=== PATIENT | male | born 1965 | race American Indian/Alaskan Native ===

== ENCOUNTER 2017-05-10 11:36 | Outpatient (CLI) | payer OTHER ==
[2017-05-10] MEDS ORDERED: PROVENTIL IH ONE (11:59)
== END 2017-05-10 11:37 | disposition home or self-care (01) ==
LOC: PF 11:36
PROVIDERS: ATTEND Internal Medicine
DX: I11.0 Hypertensive heart disease with heart failure (principal); I50.9 Heart failure, unspecified; E11.9 Type 2 diabetes mellitus without complications; J44.9 Chronic obstructive pulmonary disease, unspecified; M10.9 Gout, unspecified; G47.30 Sleep apnea, unspecified; E66.9 Obesity, unspecified; M54.9 Dorsalgia, unspecified; I48.91 Unspecified atrial fibrillation; E78.5 Hyperlipidemia, unspecified; F17.200 Nicotine dependence, unspecified, uncomplicated
CPT/HCPCS: 94060; 94640; 94729

== ENCOUNTER 2017-08-07 07:13 | Inpatient (IN) | payer OTHER ==
[2017-08-07] MEDS ORDERED: ZOFRAN IV ONE (07:47)
[2017-08-07] MEDS ORDERED: CATAPRES PO ONE (07:47)
[2017-08-07] MEDS ORDERED: NITRO-BID 2% TP ONE (07:47)
[2017-08-07] MEDS ORDERED: SUBLIMAZE IV ONE (07:47)
--- NOTE | 2017-08-07 07:47 | Emergency Department Report ---
HPI - General Chief Complaint: Chest Pain Time Seen by Provider: 08/07/17 07:38 - HPI HPI: Room 1 The patient is a 51-year-old male presenting with a chief complaint of chest pain. Patient states his symptoms began last night with substernal chest pain described as a tightness/pressure. Patient is to shortness of breath but denies nausea/vomiting. Patient admits occasional diaphoresis with the chest pain. Patient states the chest pain has been intermittent. Location: [See above] Duration: [See above] Quality:/Pressure Severity:01/26 Modifying factors: [see above] Context: [see above] Mode of transportation: [not driving] ED Past Medical Hx - Past Medical History Hx Hypertension: Yes Hx Congestive Heart Failure: Yes Hx Diabetes: Yes Hx Asthma: Yes Hx COPD: Yes - Surgical History Past Surgical History?: No - Family History Family history: no significant - Social History Smoking Status: Current Every Day Smoker (1/2 pack per day) Substance Use Type: None (denies illicit drug use), Alcohol (occasional) - Medications Home Medications: Home Medications Medication Instructions Recorded Confirmed Last Taken Type ALBUTEROL Inhaler [ProAir HFA 2 puff IH QID PRN 03/15/16 01/13/17 01/12/17 History Inhaler] Enoxaparin [Lovenox] 100 mg SUB-Q Q12HR #10 syringe 03/16/16 01/13/17 01/12/17 Rx Warfarin [Coumadin] 5 mg PO QDAY #45 tablet 03/16/16 01/13/17 01/12/17 Rx Allopurinol [Zyloprim] 100 mg PO TID #90 tablet 01/14/17 Unknown Rx Aspirin [Aspirin BABY CHEW TAB] 81 mg PO QDAY #30 tab.chew 01/14/17 Unknown Rx Carvedilol [Coreg] 25 mg PO BID #60 tablet 01/14/17 Unknown Rx Duloxetine HCl [DULoxetine] 30 mg PO QDAY #30 capsule. 01/14/17 Unknown Rx Furosemide [Lasix TAB] 40 mg PO QDAY #30 tablet 01/14/17 Unknown Rx ISOSORBIDE MONOnitrate [Imdur ER] 30 mg PO QDAY #30 tablet 01/14/17 Unknown Rx Lisinopril [Zestril TAB] 40 mg PO QDAY #30 tablet 01/14/17 Unknown Rx NIFEdipine XL [Procardia Xl] 60 mg PO QDAY #30 tablet 01/14/17 Unknown Rx Simvastatin [Zocor TAB] 20 mg PO QHS #30 tablet 01/14/17 Unknown Rx Spironolactone [Aldactone] 50 mg PO QDAY #30 tablet 01/14/17 Unknown Rx Tiotropium [Spiriva] 18 mcg IH QDAY #30 cap 01/14/17 Unknown Rx glipiZIDE [Glucotrol] 5 mg PO BID #60 tablet 01/14/17 Unknown Rx metFORMIN [Glucophage] 500 mg PO BID #60 tablet 01/14/17 Unknown Rx ED Review of Systems ROS: Stated complaint: CHEST PAIN Other details as noted in HPI Comment: All other systems reviewed and negative Constitutional: diaphoresis Eyes: denies: eye pain, eye discharge, vision change ENT: denies: ear pain, throat pain Respiratory: shortness of breath Cardiovascular: chest pain Endocrine: no symptoms reported Gastrointestinal: denies: abdominal pain, nausea, diarrhea Genitourinary: denies: urgency, dysuria Musculoskeletal: denies: back pain, joint swelling, arthralgia Skin: denies: rash, lesions Neurological: denies: headache, weakness, paresthesias Psychiatric: denies: anxiety, depression Hematological/Lymphatic: denies: easy bleeding, easy bruising Physical Exam - Physical Exam Vital Signs: Vital Signs 08/07/17 07:37 Temperature 98.1 F Pulse Rate 85 Respiratory 18 Rate Blood Pressure 230/128 O2 Sat by Pulse 98 Oximetry Physical Exam: GENERAL: The patient is well-developed well-nourished male sitting on stretcher not appearing to be in acute distress. [] HEENT: Normocephalic. Atraumatic. Extraocular motions are intact. Patient has moist mucous membranes. NECK: Supple. Trachea midline CHEST/LUNGS: Clear to auscultation. There is no respiratory distress noted. HEART/CARDIOVASCULAR: Regular. There is no tachycardia. There is no gallop rub or murmur. ABDOMEN: Abdomen is soft, nontender. Patient has normal bowel sounds. There is no abdominal distention. SKIN: There is no rash. There is no edema. There is no diaphoresis. NEURO: The patient is awake, alert, and oriented. The patient is cooperative. The patient has normal speech MUSCULOSKELETAL: There is no evidence of acute injury. ED Course Vital Signs 08/07/17 07:37 Temperature 98.1 F Pulse Rate 85 Respiratory 18 Rate Blood Pressure 230/128 O2 Sat by Pulse 98 Oximetry ED Medical Decision Making - Lab Data Result diagrams: 08/07/17 07:50 08/07/17 07:50 Laboratory Tests 08/07/17 08/07/17 08/07/17 07:50 07:50 07:50 WBC 8.2 RBC 5.25 H Hgb 15.7 H Hct 45.2 MCV 86 MCH 30 MCHC 35 H RDW 13.0 L Plt Count 182 Lymph % (Auto) 26.9 Lee % (Auto) 7.0 Eos % (Auto) 2.0 Baso % (Auto) 1.2 Lymph # 2.2 Lee # 0.6 Eos # 0.2 Baso # 0.1 Seg Neutrophils % 62.9 Seg Neutrophils # 5.2 PT 19.8 H INR 1.60 H APTT 36.7 H Sodium 133 L Potassium 3.6 Chloride 91.5 L Carbon Dioxide 27 Anion Gap 18 BUN 9 Creatinine 0.8 Estimated GFR > 60 BUN/Creatinine Ratio 11 Glucose 478 H Calcium 8.9 Total Creatine Kinase 193 H CK-MB (CK-2) 4.9 H CK-MB (CK-2) Rel Index 2.5 Troponin T < 0.010 NT-Pro-B Natriuret Pep 88.06 - EKG Data -: EKG Interpreted by Me EKG shows normal: sinus rhythm Rate: normal - EKG Data When compared to previous EKG there are: no significant change Interpretation: unchanged when compared t (01/13/2017), nonspecific ST-T wave philipp - Radiology Data Radiology results: image reviewed (chest x-ray) interpreted by me: Chest x-ray-no focal infiltrates, no pneumothorax - Differential Diagnosis ACS, GERD, pericarditis Critical care attestation.: If time is entered above; I have spent that time in minutes in the direct care of this critically ill patient, excluding procedure time. ED Disposition Clinical Impression: Chest pain, Hypertensive urgency Disposition: DC-09 OP ADMIT IP TO THIS HOSP Is pt being admited?: Yes Does the pt Need Aspirin: Yes Condition: Fair Instructions: Chest Pain (ED) Time of Disposition: 08:38 (hospitalist paged)
[2017-08-07] MEDS ORDERED: ASPIRIN PO ONE (07:49)
[2017-08-07 08:18] LABS: Basophils % (Auto) 1.2 % (0.0-1.8); Hematocrit 45.2 % (35.5-45.6); Hemoglobin 15.7 gm/dl (11.8-15.2); Mean Corpuscular HGB Conc 35 % (32-34); Mean Corpuscular Hemoglobin 30 pg (28-32); Mean Corpuscular Volume 86 fl (84-94); Platelet Count 182 K/mm3 (140-440); Red Blood Count 5.25 M/mm3 (3.65-5.03); White Blood Count 8.2 K/mm3 (4.5-11.0)
[2017-08-07 08:24] LABS: Creatine Kinase MB 4.9 ng/mL (0.0-4.0)
[2017-08-07 08:25] LABS: Anion Gap 18 mmol/L; BUN/Creatinine Ratio 11; Blood Urea Nitrogen 9 mg/dL (9-20); Calcium 8.9 mg/dL (8.4-10.2); Carbon Dioxide 27 mmol/L (22-30); Chloride 91.5 mmol/L (98-107); Creatine Kinase 193 units/L (55-170); Glucose 478 mg/dL (75-100); INR 1.6 (0.87-1.13); Potassium 3.6 mmol/L (3.6-5.0); Sodium 133 mmol/L (137-145)
[2017-08-07 08:26] LABS: Partial Thromboplastin Time 36.7 Sec. (24.2-36.6)
[2017-08-07] MEDS ORDERED: NOVOLOG SUB-Q ONE (08:43)
--- NOTE | 2017-08-07 08:51 | XRay Report ---
FINAL REPORT EXAM: XR CHEST 1V AP HISTORY: chest pains TECHNIQUE: AP portable view(s) of the chest obtained. PRIORS: None. FINDINGS: No mediastinal shift. Cardiac silhouette is not enlarged. No pneumothorax, effusion, or focal pulmonary opacity identified. No acute skeletal findings. IMPRESSION: No acute pulmonary finding identified.
--- NOTE | 2017-08-07 09:00 | History and Physical Report ---
History of Present Illness Date of examination: 08/07/17 Chief complaint: cp History of present illness: This is a 51-year-old male with significant past medical history of coronary artery disease, atrial flutter, hypertension, hyperlipidemia and diabetes mellitus type 2, who presents with complaints of chest pain that began yesterday. Patient describes the pain as chest tightness/pressure that began last evening and nonradiating. Patient reports associated symptoms of shortness of breath and diaphoresis but denies nausea, vomiting. Patient states that he has been without his medications for the past 4 days because he ran out. Patient also complains of neuropathic type pain of the lower extremities. No weakness. No fever chills. No cough or cold-like symptoms. No headache or visual disturbances. Patient reports his last cardiac evaluation approximately 1-2 years ago at [facility]. Past History Past Medical History: CAD, diabetes, hypertension, hyperlipidemia, other (a- flutter) Past Surgical History: No surgical history Social history: smoking (Current Every Day Smoker (1/2 pack per day)) Family history: no significant family history Medications and Allergies Allergies Allergy/AdvReac Type Severity Reaction Status Date / Time No Known Allergies Allergy Verified 03/13/15 12:17 Home Medications Medication Instructions Recorded Confirmed Last Taken Type ALBUTEROL Inhaler [ProAir HFA 2 puff IH QID PRN 03/15/16 01/13/17 01/12/17 History Inhaler] Enoxaparin [Lovenox] 100 mg SUB-Q Q12HR #10 syringe 03/16/16 01/13/17 01/12/17 Rx Warfarin [Coumadin] 5 mg PO QDAY #45 tablet 03/16/16 01/13/17 01/12/17 Rx Allopurinol [Zyloprim] 100 mg PO TID #90 tablet 01/14/17 Unknown Rx Aspirin [Aspirin BABY CHEW TAB] 81 mg PO QDAY #30 tab.chew 01/14/17 Unknown Rx Carvedilol [Coreg] 25 mg PO BID #60 tablet 01/14/17 Unknown Rx Duloxetine HCl [DULoxetine] 30 mg PO QDAY #30 capsule. 01/14/17 Unknown Rx Furosemide [Lasix TAB] 40 mg PO QDAY #30 tablet 01/14/17 Unknown Rx ISOSORBIDE MONOnitrate [Imdur ER] 30 mg PO QDAY #30 tablet 01/14/17 Unknown Rx Lisinopril [Zestril TAB] 40 mg PO QDAY #30 tablet 01/14/17 Unknown Rx NIFEdipine XL [Procardia Xl] 60 mg PO QDAY #30 tablet 01/14/17 Unknown Rx Simvastatin [Zocor TAB] 20 mg PO QHS #30 tablet 01/14/17 Unknown Rx Spironolactone [Aldactone] 50 mg PO QDAY #30 tablet 01/14/17 Unknown Rx Tiotropium [Spiriva] 18 mcg IH QDAY #30 cap 01/14/17 Unknown Rx glipiZIDE [Glucotrol] 5 mg PO BID #60 tablet 01/14/17 Unknown Rx metFORMIN [Glucophage] 500 mg PO BID #60 tablet 01/14/17 Unknown Rx Review of Systems All systems: negative Exam - Constitutional Vitals: Temp Pulse Resp BP Pulse Ox 98.1 F 86 14 159/109 98 08/07/17 07:37 08/07/17 08:08 08/07/17 08:00 08/07/17 08:08 08/07/17 08:15 General appearance: Present: no acute distress, well-nourished - EENT Eyes: Present: PERRL ENT: hearing intact, clear oral mucosa - Neck Neck: Present: supple, normal ROM - Respiratory Respiratory effort: normal Respiratory: bilateral: CTA - Cardiovascular Heart Sounds: Present: S1 & S2. Absent: rub, click - Extremities Extremities: pulses symmetrical, No edema Peripheral Pulses: within normal limits - Abdominal General gastrointestinal: Present: soft, non-tender, non-distended, normal bowel sounds Male genitourinary: Present: normal - Integumentary Integumentary: Present: clear, warm, dry - Musculoskeletal Musculoskeletal: gait normal, strength equal bilaterally - Psychiatric Psychiatric: appropriate mood/affect, intact judgment & insight - Neurologic Neurologic: CNII-XII intact, moves all extremities Results - Labs CBC & Chem 7: 08/07/17 07:50 08/07/17 07:50 Labs: Laboratory Last Values WBC 8.2 K/mm3 (4.5-11.0) 08/07/17 07:50 RBC 5.25 M/mm3 (3.65-5.03) H 08/07/17 07:50 Hgb 15.7 gm/dl (11.8-15.2) H 08/07/17 07:50 Hct 45.2 % (35.5-45.6) 08/07/17 07:50 MCV 86 fl (84-94) 08/07/17 07:50 MCH 30 pg (28-32) 08/07/17 07:50 MCHC 35 % (32-34) H 08/07/17 07:50 RDW 13.0 % (13.2-15.2) L 08/07/17 07:50 Plt Count 182 K/mm3 (140-440) 08/07/17 07:50 Lymph % (Auto) 26.9 % (13.4-35.0) 08/07/17 07:50 [place] % (Auto) 7.0 % (0.0-7.3) 08/07/17 07:50 Eos % (Auto) 2.0 % (0.0-4.3) 08/07/17 07:50 Baso % (Auto) 1.2 % (0.0-1.8) 08/07/17 07:50 Lymph # 2.2 K/mm3 (1.2-5.4) 08/07/17 07:50 [place] # 0.6 K/mm3 (0.0-0.8) 08/07/17 07:50 Eos # 0.2 K/mm3 (0.0-0.4) 08/07/17 07:50 Baso # 0.1 K/mm3 (0.0-0.1) 08/07/17 07:50 Seg Neutrophils % 62.9 % (40.0-70.0) 08/07/17 07:50 Seg Neutrophils # 5.2 K/mm3 (1.8-7.7) 08/07/17 07:50 PT 19.8 Sec. (12.2-14.9) H 08/07/17 07:50 INR 1.60 (0.87-1.13) H 08/07/17 07:50 APTT 36.7 Sec. (24.2-36.6) H 08/07/17 07:50 Sodium 133 mmol/L (137-145) L 08/07/17 07:50 Potassium 3.6 mmol/L (3.6-5.0) 08/07/17 07:50 Chloride 91.5 mmol/L (98-107) L 08/07/17 07:50 Carbon Dioxide 27 mmol/L (22-30) 08/07/17 07:50 Anion Gap 18 mmol/L 08/07/17 07:50 BUN 9 mg/dL (9-20) 08/07/17 07:50 Creatinine 0.8 mg/dL (0.8-1.5) 08/07/17 07:50 Estimated GFR > 60 ml/min 08/07/17 07:50 BUN/Creatinine Ratio 11 % 08/07/17 07:50 Glucose 478 mg/dL (75-100) H 08/07/17 07:50 POC Glucose 373 (70-105) H 08/07/17 08:40 Calcium 8.9 mg/dL (8.4-10.2) 08/07/17 07:50 Total Creatine Kinase 193 units/L (55-170) H 08/07/17 07:50 CK-MB (CK-2) 4.9 ng/mL (0.0-4.0) H 08/07/17 07:50 CK-MB (CK-2) Rel Index 2.5 (0-4) 08/07/17 07:50 Troponin T < 0.010 ng/mL (0.00-0.029) 08/07/17 07:50 NT-Pro-B Natriuret Pep 88.06 pg/mL (0-900) 08/07/17 07:50 Assessment and Plan Assessment and plan: Chest pain. Patient does have a history of Coronary artery disease. Cardiac catheterization in February 2015 completed at our facility revealed significant coronary artery disease with disease involving the distal vessels. The vessels are small in size and was not amenable to intervention or revascularization. Left ventricular size and systolic function with an EF of 55-60%. Cardiology consultation pending. Chronic diastolic heart failure. Compensated. Resume home medications. Diabetes mellitus type 2. Uncontrolled. We will resume his regimen. Accu- Cheks and sliding scale regular insulin. COPD. Stable. Continue medications. Diabetic neuropathy. Resume Neurontin. Tobacco abuse. Patient will be counseled on tobacco cessation. Medical noncompliance. Patient will be counseled. DVT prophylaxis. Patient currently on Coumadin. However, INR is subtherapeutic. Lovenox daily.
[2017-08-07] MEDS ORDERED: SODIUM CHLORIDE FLUSH SYRINGE 10 ML IV PRN (09:06)
--- NOTE | 2017-08-07 10:07 | Consultation ---
History of Present Illness Consult date: 08/07/17 Consult reason: chest pain History of present illness: This is a 51-year-old male with significant past medical history of coronary artery disease, atrial flutter, hypertension, hyperlipidemia and diabetes mellitus type 2, who presented with complaints of chest rodney, beginning yesteray. pain is a chest tightness/pressure, nonradiating, and substernal. Patient reports associated symptoms of shortness of breath and diaphoresis. Pt denies orthopnea, pnd, palpitations, dizziness or syncope. Patient states that he has been without his medications for the past 4 days because he ran out. Past History Past Medical History: CAD, diabetes, hypertension, hyperlipidemia, other (a- flutter) Past Surgical History: No surgical history Social history: smoking (Current Every Day Smoker (1/2 pack per day)) Family history: no significant family history Medications and Allergies Allergies Allergy/AdvReac Type Severity Reaction Status Date / Time No Known Allergies Allergy Verified 03/13/15 12:17 Home Medications Medication Instructions Recorded Confirmed Last Taken Type ALBUTEROL Inhaler [ProAir HFA 2 puff IH QID PRN 03/15/16 01/13/17 01/12/17 History Inhaler] Enoxaparin [Lovenox] 100 mg SUB-Q Q12HR #10 syringe 03/16/16 01/13/17 01/12/17 Rx Warfarin [Coumadin] 5 mg PO QDAY #45 tablet 03/16/16 01/13/17 01/12/17 Rx Allopurinol [Zyloprim] 100 mg PO TID #90 tablet 01/14/17 Unknown Rx Aspirin [Aspirin BABY CHEW TAB] 81 mg PO QDAY #30 tab.chew 01/14/17 Unknown Rx Carvedilol [Coreg] 25 mg PO BID #60 tablet 01/14/17 Unknown Rx Duloxetine HCl [DULoxetine] 30 mg PO QDAY #30 capsule. 01/14/17 Unknown Rx Furosemide [Lasix TAB] 40 mg PO QDAY #30 tablet 01/14/17 Unknown Rx ISOSORBIDE MONOnitrate [Imdur ER] 30 mg PO QDAY #30 tablet 01/14/17 Unknown Rx Lisinopril [Zestril TAB] 40 mg PO QDAY #30 tablet 01/14/17 Unknown Rx NIFEdipine XL [Procardia Xl] 60 mg PO QDAY #30 tablet 01/14/17 Unknown Rx Simvastatin [Zocor TAB] 20 mg PO QHS #30 tablet 01/14/17 Unknown Rx Spironolactone [Aldactone] 50 mg PO QDAY #30 tablet 01/14/17 Unknown Rx Tiotropium [Spiriva] 18 mcg IH QDAY #30 cap 01/14/17 Unknown Rx glipiZIDE [Glucotrol] 5 mg PO BID #60 tablet 01/14/17 Unknown Rx metFORMIN [Glucophage] 500 mg PO BID #60 tablet 01/14/17 Unknown Rx Active Meds: Active Medications Sodium Chloride (Sodium Chloride Flush Syringe 10 Ml) 10 ml IV PRN PRN PRN Reason: LINE FLUSH Physical Examination Vital Signs Temp Pulse Resp BP Pulse Ox 98.1 F 85 18 230/128 98 08/07/17 07:37 08/07/17 07:37 08/07/17 07:37 08/07/17 07:37 08/07/17 07:37 General appearance: no acute distress HEENT: Positive: PERRL, EOMI Cardiac: Positive: Reg Rate and Rhythm, S1/S2 Lungs: Positive: clear to auscultation, Normal Breath Sounds Abdomen: Positive: Soft, Active Bowel Sounds Extremities: Present: normal Results 08/07/17 07:50 08/07/17 07:50 Cardiac Enzymes 08/07/17 Range/Units 07:50 CK-MB (CK-2) 4.9 H (0.0-4.0) ng/mL Coagulation 08/07/17 Range/Units 07:50 PT 19.8 H (12.2-14.9) Sec. INR 1.60 H (0.87-1.13) APTT 36.7 H (24.2-36.6) Sec. CBC 08/07/17 Range/Units 07:50 WBC 8.2 (4.5-11.0) K/mm3 RBC 5.25 H (3.65-5.03) M/mm3 Hgb 15.7 H (11.8-15.2) gm/dl Hct 45.2 (35.5-45.6) % Plt Count 182 (140-440) K/mm3 Lymph # 2.2 (1.2-5.4) K/mm3 [place] # 0.6 (0.0-0.8) K/mm3 Eos # 0.2 (0.0-0.4) K/mm3 Baso # 0.1 (0.0-0.1) K/mm3 Comprehensive Metabolic Panel 08/07/17 Range/Units 07:50 Sodium 133 L (137-145) mmol/L Potassium 3.6 (3.6-5.0) mmol/L Chloride 91.5 L (98-107) mmol/L Carbon Dioxide 27 (22-30) mmol/L BUN 9 (9-20) mg/dL Creatinine 0.8 (0.8-1.5) mg/dL Glucose 478 H (75-100) mg/dL Calcium 8.9 (8.4-10.2) mg/dL Assessment and Plan Chest pain - Patient does have a history of Coronary artery disease. Cardiac catheterization in February 2015 showed significant coronary artery disease with disease involving the distal vessels. The vessels are small in size and was not amenable to intervention or revascularization. Left ventricular size and systolic function with an EF of 55-60%. As coronary anatomy is known, there is no further purpose in stress test. Plan for maximal medical therapy. Should patient develop further symptoms on maximal medical therapy, then consider for LHC. Chronic diastolic heart failure - currently not volume overloaded. Recommend intensive antihypertensive medications. Diabetes mellitus type 2 - management per primary COPD - management per primary Diabetic neuropathy - management per primary Tobacco abuse - cessation recommended Medical noncompliance. Patient will be counseled.
[2017-08-07 10:15] LABS: Basophils % (Auto) 0.5 % (0.0-1.8); Eosinophils % (Auto) 1.4 % (0.0-4.3); Hematocrit 41.7 % (35.5-45.6); Hemoglobin 14.4 gm/dl (11.8-15.2); Mean Corpuscular HGB Conc 35 % (32-34); Mean Corpuscular Hemoglobin 30 pg (28-32); Mean Corpuscular Volume 87 fl (84-94); Platelet Count 179 K/mm3 (140-440); Red Blood Count 4.81 M/mm3 (3.65-5.03); Red Cell Distribution Width 13.4 % (13.2-15.2); White Blood Count 8.4 K/mm3 (4.5-11.0)
[2017-08-07 10:31] LABS: Anion Gap 14 mmol/L; BUN/Creatinine Ratio 11; Blood Urea Nitrogen 9 mg/dL (9-20); Calcium 8.7 mg/dL (8.4-10.2); Carbon Dioxide 29 mmol/L (22-30); Chloride 95.4 mmol/L (98-107); Glucose 408 mg/dL (75-100); Potassium 3.8 mmol/L (3.6-5.0); Sodium 135 mmol/L (137-145)
[2017-08-07] MEDS ORDERED: LOPRESSOR PO SCH (22:00)
[2017-08-07] MEDS: NOVOLOG SUB-Q SCH (22:01)
[2017-08-07] MEDS: RANEXA ER PO SCH (22:02)
[2017-08-07] MEDS: COREG PO SCH (22:02)
[2017-08-08] MEDS ORDERED: LEXISCAN IV ONE (08:19)
[2017-08-08] MEDS ORDERED: IMDUR PO SCH (10:00)
[2017-08-08] MEDS ORDERED: ZESTRIL PO SCH (10:00)
[2017-08-08] MEDS ORDERED: ALDACTONE PO SCH (10:00)
[2017-08-08] MEDS ORDERED: BABY ASPIRIN PO SCH (10:00)
[2017-08-08] MEDS ORDERED: PROCARDIA XL PO SCH (10:00)
[2017-08-08] MEDS: COREG PO SCH (13:37)
[2017-08-08] MEDS: RANEXA ER PO SCH (13:37)
[2017-08-08] MEDS: NOVOLOG SUB-Q SCH ×3 (13:38→17:56)
--- NOTE | 2017-08-08 13:51 | Progress Note ---
Assessment and Plan - Patient Problems (1) Chest pain Current Visit: Yes Status: Acute Plan to address problem: Patient looks and feels better, no further chest pain or shortness of breath. He completed a Persantine thallium stress test today, results are pending. Patient was admitted with atypical chest pain. EKG on presentation sinus rhythm , left ventricular hypertrophy and nonspecific ST and T-wave changes. Cardiac enzymes were unremarkable. He has a history of paroxysmal atrial flutter and small vessel coronary artery disease. A cardiac catheterization 2 years ago demonstrated diffuse atherosclerosis of the small distal vessels, recommended for medical therapy. Left ventricular ejection fraction well preserved at 55-60%. In addition to his coronary disease, he has paroxysmal atrial flutter, on warfarin therapy. The INR on presentation was subtherapeutic at 1.6. (2) Atrial fibrillation Current Visit: No Status: Acute Plan to address problem: Patient looks and feels better, no further chest pain or shortness of breath. He completed a Persantine thallium stress test today, results are pending. Patient was admitted with atypical chest pain. EKG on presentation sinus rhythm , left ventricular hypertrophy and nonspecific ST and T-wave changes. Cardiac enzymes were unremarkable. He has a history of paroxysmal atrial flutter and small vessel coronary artery disease. A cardiac catheterization 2 years ago demonstrated diffuse atherosclerosis of the small distal vessels, recommended for medical therapy. Left ventricular ejection fraction well preserved at 55-60%. In addition to his coronary disease, he has paroxysmal atrial flutter, on warfarin therapy. The INR on presentation was subtherapeutic at 1.6. Subjective Date of service: 08/08/17 Interval history: Patient looks and feels better, no further chest pain or shortness of breath. He completed a Persantine thallium stress test today, results are pending. Patient was admitted with atypical chest pain. EKG on presentation sinus rhythm , left ventricular hypertrophy and nonspecific ST and T-wave changes. Cardiac enzymes were unremarkable. He has a history of paroxysmal atrial flutter and small vessel coronary artery disease. A cardiac catheterization 2 years ago demonstrated diffuse atherosclerosis of the small distal vessels, recommended for medical therapy. Left ventricular ejection fraction well preserved at 55-60%. In addition to his coronary disease, he has paroxysmal atrial flutter, on warfarin therapy. The INR on presentation was subtherapeutic at 1.6. Objective Vital Signs Temp Pulse Resp BP BP BP Pulse Ox 08/08/17 13:45 79 188/114 200/103 08/08/17 13:38 79 188/114 08/08/17 13:37 79 188/114 08/08/17 03:53 97.9 F 77 20 176/92 100 08/08/17 00:42 75 75 L 08/08/17 00:37 98.4 F 74 24 143/80 97 08/07/17 20:40 77 08/07/17 20:26 97.6 F 84 20 164/93 93 08/07/17 18:19 18 08/07/17 16:45 69 18 133/74 100 08/07/17 16:38 97.3 F L 76 18 129/77 97 08/07/17 16:00 65 16 137/76 100 08/07/17 15:45 69 18 133/74 100 08/07/17 15:31 68 17 133/77 96 08/07/17 15:15 70 15 116/80 94 08/07/17 15:00 70 18 127/82 93 08/07/17 14:45 72 19 124/76 98 08/07/17 14:30 71 17 131/76 99 08/07/17 14:15 69 17 126/71 99 08/07/17 14:01 70 17 114/74 100 - Physical Examination General: No Apparent Distress HEENT: Positive: PERRL, EOMI Neck: Positive: neck supple Cardiac: Positive: Reg Rate and Rhythm Lungs: Positive: Decreased Breath Sounds Neuro: Positive: Grossly Intact Abdomen: Positive: Soft, Active Bowel Sounds Skin: Positive: Clear Extremities: Absent: edema
[2017-08-08 16:29] VITALS: BP 147/91
--- NOTE | 2017-08-08 17:58 | Progress Note ---
Assessment and Plan - Patient Problems (1) Chest pain Current Visit: Yes Status: Acute Plan to address problem: Chest pain patient has a history of coronary disease in the distal vessels not amenable to therapy. Maximize medical management with long-acting nitroglycerin and aggressive control of blood pressure. (2) Hypertensive urgency Current Visit: Yes Status: Acute Plan to address problem: Patient blood pressure still suboptimally controlled. Last blood pressure 188/ 115. Prior to that had a systolic of 200. We'll increase lisinopril to 40 mg increase Coreg to 25 mg twice a day. (3) Atrial fibrillation Current Visit: No Status: Acute Plan to address problem: At present we'll continue current anticoagulant. (4) CAD (coronary artery disease) Current Visit: No Status: Acute Plan to address problem: Smoking cessation. His vessels as mentioned before not amendable to therapy. 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 Chest pain free now results stress test still pending. Patient had a prior history of coronary disease and distal vessels not amenable to therapy. Suggesting maximum medical therapy. Was stress tested negative for discharge. Hospitalist Physical - Constitutional Vitals: Temp Pulse Resp BP Pulse Ox 98.5 F 78 18 147/91 98 08/08/17 16:28 08/08/17 16:28 08/08/17 16:28 08/08/17 16:28 08/08/17 16:28 General appearance: Present: no acute distress - EENT Eyes: Present: PERRL, EOM intact ENT: hearing intact, clear oral mucosa, dentition normal - Neck Neck: Present: supple, normal ROM - Respiratory Respiratory effort: normal Respiratory: bilateral: CTA - Cardiovascular Rhythm: irregularly irregular - Extremities Extremities: no ischemia, pulses intact, pulses symmetrical, No edema, normal temperature, normal color, Full ROM Peripheral Pulses: within normal limits - Abdominal General gastrointestinal: soft, non-tender, non-distended - Psychiatric Psychiatric: appropriate mood/affect, cooperative - Neurologic Neurologic: CNII-XII intact Results - Labs CBC & Chem 7: 08/07/17 09:59 08/07/17 09:59 Labs: Laboratory Last Values WBC 8.4 K/mm3 (4.5-11.0) 08/07/17 09:59 RBC 4.81 M/mm3 (3.65-5.03) 08/07/17 09:59 Hgb 14.4 gm/dl (11.8-15.2) 08/07/17 09:59 Hct 41.7 % (35.5-45.6) 08/07/17 09:59 MCV 87 fl (84-94) 08/07/17 09:59 MCH 30 pg (28-32) 08/07/17 09:59 MCHC 35 % (32-34) H 08/07/17 09:59 RDW 13.4 % (13.2-15.2) 08/07/17 09:59 Plt Count 179 K/mm3 (140-440) 08/07/17 09:59 Lymph % (Auto) 31.3 % (13.4-35.0) 08/07/17 09:59 Lewis % (Auto) 7.2 % (0.0-7.3) 08/07/17 09:59 Eos % (Auto) 1.4 % (0.0-4.3) 08/07/17 09:59 Baso % (Auto) 0.5 % (0.0-1.8) 08/07/17 09:59 Lymph # 2.6 K/mm3 (1.2-5.4) 08/07/17 09:59 Lewis # 0.6 K/mm3 (0.0-0.8) 08/07/17 09:59 Eos # 0.1 K/mm3 (0.0-0.4) 08/07/17 09:59 Baso # 0.0 K/mm3 (0.0-0.1) 08/07/17 09:59 Seg Neutrophils % 59.6 % (40.0-70.0) 08/07/17 09:59 Seg Neutrophils # 5.0 K/mm3 (1.8-7.7) 08/07/17 09:59 PT 19.8 Sec. (12.2-14.9) H 08/07/17 07:50 INR 1.60 (0.87-1.13) H 08/07/17 07:50 APTT 36.7 Sec. (24.2-36.6) H 08/07/17 07:50 Sodium 135 mmol/L (137-145) L 08/07/17 09:59 Potassium 3.8 mmol/L (3.6-5.0) 08/07/17 09:59 Chloride 95.4 mmol/L (98-107) L 08/07/17 09:59 Carbon Dioxide 29 mmol/L (22-30) 08/07/17 09:59 Anion Gap 14 mmol/L 08/07/17 09:59 BUN 9 mg/dL (9-20) 08/07/17 09:59 Creatinine 0.8 mg/dL (0.8-1.5) 08/07/17 09:59 Estimated GFR > 60 ml/min 08/07/17 09:59 BUN/Creatinine Ratio 11 % 08/07/17 09:59 Glucose 408 mg/dL (75-100) H 08/07/17 09:59 POC Glucose 371 (70-105) H 08/08/17 16:08 Calcium 8.7 mg/dL (8.4-10.2) 08/07/17 09:59 Total Creatine Kinase 193 units/L (55-170) H 08/07/17 07:50 CK-MB (CK-2) 4.9 ng/mL (0.0-4.0) H 08/07/17 07:50 CK-MB (CK-2) Rel Index 2.5 (0-4) 08/07/17 07:50 Troponin T < 0.010 ng/mL (0.00-0.029) 08/07/17 16:44 NT-Pro-B Natriuret Pep 88.06 pg/mL (0-900) 08/07/17 07:50 - Imaging and Cardiology EKG: image reviewed Imaging and Cardiology: Stress test results.
--- NOTE | 2017-08-08 18:00 | Event Note ---
Date: 08/08/17 Just received a from the nurse stating patient wants to keep going on in smoke. Patient states he will leave AGAINST MEDICAL ADVICE. He knows how high his blood pressure is in the consequences of this. Patient states will outside and smoke is grown.
[2017-08-08] MEDS ORDERED: COREG PO SCH (22:00)
--- NOTE | 2017-08-09 01:08 | Treadmill Report ---
THALLIUM STRESS TEST LEFT VENTRICLE: Left ventricular chamber size is within normal. Perfusion study demonstrates mild diaphragmatic attenuation artifact, otherwise homogeneous uptake of the tracer in all segments, no significant perfusion defects identified. Gated analysis suggests mild left ventricular systolic dysfunction with ejection fraction calculated at 45%. CONCLUSION: No demonstrable ischemia on thallium perfusion imaging. Recommend clinical correlation and echocardiographic reassessment of the left ventricular systolic function. [facility]# [id number] CA/NTS
[2017-08-09] MEDS ORDERED: ZESTRIL PO SCH (10:00)
== END 2017-08-08 18:06 | disposition left against medical advice (07) | DRG 313 ==
LOC: ED 07:13 → 4A 08:40
PROVIDERS: ADMIT Internal Medicine; ATTEND Internal Medicine
DX: R07.89 Other chest pain (principal); I50.32 Chronic diastolic (congestive) heart failure; I11.0 Hypertensive heart disease with heart failure; J44.9 Chronic obstructive pulmonary disease, unspecified; I48.91 Unspecified atrial fibrillation; F17.200 Nicotine dependence, unspecified, uncomplicated; I16.0 Hypertensive urgency; I25.10 Atherosclerotic heart disease of native coronary artery without angina pectoris; E11.40 Type 2 diabetes mellitus with diabetic neuropathy, unspecified; Z91.14 Patient's other noncompliance with medication regimen; Z71.6 Tobacco abuse counseling; Z79.899 Other long term (current) drug therapy; Z79.82 Long term (current) use of aspirin
CPT/HCPCS: 36415; 71010; 78452; 80048; 82550; 82553; 82962; 83880; 84484; 85025; 85610; 85730; 93005; 93010; 93017; 93306; 96374; 96375; 99406; A9270-GY; A9502; J1815; J2405; J2785; J3010

== ENCOUNTER 2017-12-04 13:00 | Emergency (ER) | payer SELFPAY ==
[2017-12-04] MEDS ORDERED: ASPIRIN PO ONE (13:21)
[2017-12-04 13:39] LABS: Basophils # (Auto) 0.1 K/mm3 (0.0-0.1); Basophils % (Auto) 0.6 % (0.0-1.8); Eosinophils # (Auto) 0.1 K/mm3 (0.0-0.4); Eosinophils % (Auto) 1.3 % (0.0-4.3); Hematocrit 46.5 % (35.5-45.6); Hemoglobin 16.1 gm/dl (11.8-15.2); Lymphocytes # (Auto) 2.4 K/mm3 (1.2-5.4); Mean Corpuscular HGB Conc 35 % (32-34); Mean Corpuscular Hemoglobin 30 pg (28-32); Mean Corpuscular Volume 87 fl (84-94); Monocytes # (Auto) 0.7 K/mm3 (0.0-0.8); Monocytes % (Auto) 7.6 % (0.0-7.3); Platelet Count 206 K/mm3 (140-440); Red Blood Count 5.33 M/mm3 (3.65-5.03)
[2017-12-04 13:53] LABS: BUN/Creatinine Ratio 15; Blood Urea Nitrogen 12 mg/dL (9-20); Calcium 8.9 mg/dL (8.4-10.2); Hemolysis Index 7
[2017-12-04] MEDS ORDERED: CATAPRES ONE (16:58)
[2017-12-04] MEDS ORDERED: CATAPRES PO ONE (17:00)
[2017-12-04 19:12] VITALS: BP 200/121
== END 2017-12-04 19:09 | disposition left against medical advice (07) ==
LOC: ED 13:00
DX: R07.9 Chest pain, unspecified (principal); I50.9 Heart failure, unspecified; Z53.21 Procedure and treatment not carried out due to patient leaving prior to being seen by health care provider
CPT/HCPCS: 36415; 80048; 83880; 84484; 85025; 93005; 93010

== ENCOUNTER 2018-04-17 08:09 | Outpatient (CLI) | payer MEDICAID, MEDICARE ==
[2018-04-17] MEDS ORDERED: XYLOCAINE TOPICAL 4% TP ONE ×2 (08:42→10:06)
== END 2018-04-17 08:10 | disposition home or self-care (01) ==
LOC: WOUND 08:09
PROVIDERS: ATTEND Surgery
DX: E11.622 Type 2 diabetes mellitus with other skin ulcer (principal); L97.822 Non-pressure chronic ulcer of other part of left lower leg with fat layer exposed; L97.812 Non-pressure chronic ulcer of other part of right lower leg with fat layer exposed; I87.2 Venous insufficiency (chronic) (peripheral); E78.00 Pure hypercholesterolemia, unspecified; I11.0 Hypertensive heart disease with heart failure; I50.9 Heart failure, unspecified; M10.9 Gout, unspecified; G47.30 Sleep apnea, unspecified; F17.200 Nicotine dependence, unspecified, uncomplicated
CPT/HCPCS: 11042; G0463

== ENCOUNTER 2018-06-22 09:17 | Inpatient (IN) | payer MEDICAID, MEDICARE, OTHER ==
[2018-06-22 09:56] LABS: Basophils # (Auto) 0.1 K/mm3 (0.0-0.1); Basophils % (Auto) 1.1 % (0.0-1.8); Eosinophils # (Auto) 0.1 K/mm3 (0.0-0.4); Eosinophils % (Auto) 1.4 % (0.0-4.3); Hematocrit 45.3 % (35.5-45.6); Hemoglobin 15.5 gm/dl (11.8-15.2); Lymphocytes # (Auto) 2.5 K/mm3 (1.2-5.4); Lymphocytes % (Auto) 24.7 % (13.4-35.0); Mean Corpuscular HGB Conc 34 % (32-34); Mean Corpuscular Hemoglobin 31 pg (28-32); Mean Corpuscular Volume 92 fl (84-94); Monocytes # (Auto) 0.7 K/mm3 (0.0-0.8); Monocytes % (Auto) 6.9 % (0.0-7.3); Platelet Count 202 K/mm3 (140-440); Red Blood Count 4.95 M/mm3 (3.65-5.03); Red Cell Distribution Width 13.8 % (13.2-15.2)
[2018-06-22 10:06] LABS: INR 0.97 (0.87-1.13)
[2018-06-22 10:07] LABS: Partial Thromboplastin Time 28.8 Sec. (24.2-36.6)
[2018-06-22 10:12] LABS: BUN/Creatinine Ratio 19; Blood Urea Nitrogen 13 mg/dL (9-20); Calcium 9.6 mg/dL (8.4-10.2); Hemolysis Index 54
[2018-06-22 10:35] LABS: Chol/HDL Ratio 4.16 %; HDL Cholesterol 50 mg/dL (40-59); LDL Cholesterol,Direct 150 mg/dL (50-130)
[2018-06-22] MEDS ORDERED: BABY ASPIRIN PO ONE (10:38)
[2018-06-22] MEDS ORDERED: LOPRESSOR IV ONE (10:38)
--- NOTE | 2018-06-22 10:41 | Emergency Department Report ---
ED Chest Pain HPI - General Chief Complaint: Chest Pain Stated Complaint: CHEST PAIN Time Seen by Provider: 06/22/18 10:12 Source: patient Mode of arrival: Ambulatory Limitations: No Limitations - History of Present Illness Initial Comments: 52-year-old male presents to the emergency department with complaint of midsternal to right sided chest pain, nausea, and vomiting has been going on for the past 3 days. He says that he gets a sharp stabbing pain to the chest about every 1-2 minutes. He denies any shortness of breath, fever , back pain, headache. Patient has a past medical history of asthma, CHF, COPD , diabetes, hypertension, sleep apnea, hyperlipidemia and coronary artery disease with previous UT. He is a tobacco smoker. He also presents with very elevated blood pressure and says that he has been out of his blood pressure medications for about 2 or 3 days. His fan blade aligner is Dr. Vu but says that he does not have any primary care physician any longer secondary to his insurance. No recent travel or sick contacts at home. He tried some over-the- counter medication for his discomfort without much relief. - Related Data Home Medications Medication Instructions Recorded Confirmed Last Taken Allopurinol [Zyloprim] 300 mg PO DAILY 06/22/18 06/22/18 Unknown Furosemide [Lasix TAB] 40 mg PO DAILY 06/22/18 06/22/18 Unknown Gabapentin [Neurontin] 300 mg PO TID 06/22/18 06/22/18 Unknown Metformin HCl [Fortamet ER] 1,000 mg PO BID 06/22/18 06/22/18 Unknown Potassium Chloride [Klor-Con 8] 8 meq PO DAILY 06/22/18 06/22/18 Unknown Simethicone [Bicarsim] 80 mg PO DAILY 06/22/18 06/22/18 Unknown Sulfamethoxazole/Trimethoprim 1 each PO BID 06/22/18 06/22/18 Unknown [Sulfamethoxazole-Tmp Ss Tablet] cephALEXin [Keflex] 500 mg PO BID 06/22/18 06/22/18 Unknown glipiZIDE [Glipizide] 10 mg PO BID 06/22/18 06/22/18 Unknown Previous Rx's Medication Instructions Recorded Last Taken Type Carvedilol [Coreg] 25 mg PO BID #60 tablet 01/14/17 Unknown Rx Furosemide [Lasix TAB] 40 mg PO QDAY #30 tablet 01/14/17 1 Day Ago Rx ~08/06/17 Simvastatin [Zocor TAB] 20 mg PO QHS #30 tablet 01/14/17 1 Day Ago Rx ~08/06/17 Allergies Allergy/AdvReac Type Severity Reaction Status Date / Time No Known Allergies Allergy Verified 03/13/15 12:17 Heart Score - HEART Score History: Moderately suspicious EKG: Non-specific Age: 45-65 Risk factors: > 3 risk factors or hx of atherosclerotic disease Troponin: < normal limit HEART Score: 5 - Critical Actions Critical Actions: 4-6 pts:12-16.6% risk of adverse cardiac event. Should be admitted ED Review of Systems ROS: Stated complaint: CHEST PAIN Other details as noted in HPI Comment: All other systems reviewed and negative Constitutional: denies: chills, fever Eyes: denies: eye pain, eye discharge, vision change ENT: denies: ear pain, throat pain Respiratory: denies: cough, shortness of breath, wheezing Cardiovascular: chest pain. denies: palpitations Gastrointestinal: nausea, vomiting Genitourinary: denies: urgency, dysuria Musculoskeletal: denies: back pain, joint swelling, arthralgia Skin: denies: rash, lesions Neurological: denies: headache, weakness ED Past Medical Hx - Past Medical History Previous Medical History?: Yes Hx Hypertension: Yes Hx Congestive Heart Failure: Yes Hx Diabetes: Yes Hx Asthma: Yes Hx COPD: Yes Additional medical history: sleep apnea,gout,elevated cholesterol - Surgical History Past Surgical History?: Yes Additional Surgical History: Clip to RLE vein - Social History Smoking Status: Current Every Day Smoker Substance Use Type: None - Medications Home Medications: Home Medications Medication Instructions Recorded Confirmed Last Taken Type Carvedilol [Coreg] 25 mg PO BID #60 tablet 01/14/17 06/22/18 Unknown Rx Furosemide [Lasix TAB] 40 mg PO QDAY #30 tablet 01/14/17 06/22/18 1 Day Ago Rx ~08/06/17 Simvastatin [Zocor TAB] 20 mg PO QHS #30 tablet 01/14/17 06/22/18 1 Day Ago Rx ~08/06/17 Allopurinol [Zyloprim] 300 mg PO DAILY 06/22/18 06/22/18 Unknown History Furosemide [Lasix TAB] 40 mg PO DAILY 06/22/18 06/22/18 Unknown History Gabapentin [Neurontin] 300 mg PO TID 06/22/18 06/22/18 Unknown History Metformin HCl [Fortamet ER] 1,000 mg PO BID 06/22/18 06/22/18 Unknown History Potassium Chloride [Klor-Con 8] 8 meq PO DAILY 06/22/18 06/22/18 Unknown History Simethicone [Bicarsim] 80 mg PO DAILY 06/22/18 06/22/18 Unknown History Sulfamethoxazole/Trimethoprim 1 each PO BID 06/22/18 06/22/18 Unknown History [Sulfamethoxazole-Tmp Ss Tablet] cephALEXin [Keflex] 500 mg PO BID 06/22/18 06/22/18 Unknown History glipiZIDE [Glipizide] 10 mg PO BID 06/22/18 06/22/18 Unknown History ED Physical Exam - General Limitations: No Limitations ED Course Vital Signs 06/22/18 06/22/18 06/22/18 09:27 10:58 11:47 Temperature 98.5 F Pulse Rate 73 81 61 Respiratory 18 Rate Blood Pressure 228/118 224/124 220/118 O2 Sat by Pulse 99 Oximetry 06/22/18 12:48 Temperature Pulse Rate 66 Respiratory Rate Blood Pressure 221/118 O2 Sat by Pulse Oximetry - Consultations Consultation #1: 06/22/18 13:27 I spoke with [facility] cardiology, Dr Miguel, who came and saw the patient in the emergency department as well. They will be consult for the patient's chest pain and elevated troponin. Cardiology recommendation was to switch from a Cardene drip to a nitroglycerin drip. KAYCE score - Kayce Score Age > 65: (0) No Aspirin use within the Past 7 Days: (1) Yes 3 or more CAD Risk Factors: (1) Yes 2 or more Angina events in past 24 hrs: (0) No Known CAD with more than 50% Stenosis: (0) No Elevated Cardiac Markers: (1) Yes ST Deviation Greater than 0.5mm: (1) Yes KAYCE Score: 4 ED Medical Decision Making - Lab Data Result diagrams: 06/22/18 09:35 06/22/18 09:35 - EKG Data -: EKG Interpreted by Me EKG shows normal: sinus rhythm, axis, intervals, QRS complexes, ST-T waves (T- wave inversions to the lateral and inferior leads, there is some mild ST elevations to the anterior leads that are unchanged from previous) Rate: normal - EKG Data When compared to previous EKG there are: previous EKG unavailable Interpretation: unchanged when compared t (12/04/17) - Radiology Data Radiology results: image reviewed interpreted by me: Chest x-ray does not show any acute process. There are no pleural effusions, obvious pneumonia and there is no pneumothorax. - Medical Decision Making This patient presents with a three-day history of intermittent sharp right sided chest pains along with nausea and vomiting. He also presents with severely elevated and uncontrolled blood pressure with a 2 day history of noncompliance. The patient has multiple risk factors for coronary artery disease. He was given a sublingual nitroglycerin for both chest discomfort and blood pressure. It did improve his discomfort but did not affect his blood pressure. He was also given Lopressor without any relief. Patient's first troponin came back elevated at 0.047. Comparing to previous visits, he has no previous troponin elevations. EKG is unchanged from previous in November of this year. The patient has been started on a heparin drip and nitroglycerin drip and will be admitted to the ICU. He was accepted for admission by the hospitalist, Dr. Redd. - Differential Diagnosis NSTEMI, ACS, Pneumonia, GERD Critical Care Time: Yes Critical care time in (mins) excluding proc time.: 35 Critical care attestation.: If time is entered above; I have spent that time in minutes in the direct care of this critically ill patient, excluding procedure time. Critical care time was spent on this patient during his initial evaluation, multiple re-evaluations, ordering an interpretation of labs and imaging, ordering of medications, discussion with the cardiology service. Critical Care Time: 35 minutes ED Disposition Clinical Impression: Acute chest pain, Acute coronary syndrome, Hypertensive urgency, Elevated troponin level Disposition: OP ADMIT IP TO THIS HOSP Is pt being admited?: Yes Condition: Serious Time of Disposition: 13:36
[2018-06-22] MEDS ORDERED: NITROSTAT SL ONE ×2 (10:47→11:00)
[2018-06-22] MEDS ORDERED: APRESOLINE IV ONE (11:28)
--- NOTE | 2018-06-22 11:38 | History and Physical Report ---
History of Present Illness Chief complaint: My chest hurts History of present illness: 52 YO Male with HTN, DM, CAD, Asthma, COPD, Obesity, Nicotine Dependence, Diastolic CHF,HLD, KRISTY presents to ED for evaluation. Pt states that he has experienced pain in his over the past 3 days with intermittent symptoms during that same time frame. Pt states that pain is 6/10, stabbing and sharp in nature , midsternal and radiates to the right side of his chest, not worsened with exertion, relieved with rest. Pt denies fever, chills, palpitations, shortness of breath, NVD, Trauma, BRBPR, Unintentional weight loss, night sweats, unilateral leg swelling, calf pain, hemoptysis, prolonged travel/immobility, individual/family history of DVT/PE. Pt seen and evaluated in ED and found to have NSTEMI, Hypertensive Emergency, and Angina. Cardiology consulted in ED. Pt admitted to ICU and initiated on a heparin drip, as well as a nitro drip. Past History Past Medical History: CAD, diabetes, heart failure, hypertension, hyperlipidemia Past Surgical History: Other (RLE Vein clip) Social history: single, smoking. denies: alcohol abuse, prescription drug abuse Family history: hypertension Medications and Allergies Allergies Allergy/AdvReac Type Severity Reaction Status Date / Time No Known Allergies Allergy Verified 03/13/15 12:17 Home Medications Medication Instructions Recorded Confirmed Last Taken Type Carvedilol [Coreg] 25 mg PO BID #60 tablet 01/14/17 06/22/18 Unknown Rx Furosemide [Lasix TAB] 40 mg PO QDAY #30 tablet 01/14/17 06/22/18 1 Day Ago Rx ~08/06/17 Simvastatin [Zocor TAB] 20 mg PO QHS #30 tablet 01/14/17 06/22/18 1 Day Ago Rx ~08/06/17 Allopurinol [Zyloprim] 300 mg PO DAILY 06/22/18 06/22/18 Unknown History Furosemide [Lasix TAB] 40 mg PO DAILY 06/22/18 06/22/18 Unknown History Gabapentin [Neurontin] 300 mg PO TID 06/22/18 06/22/18 Unknown History Metformin HCl [Fortamet ER] 1,000 mg PO BID 06/22/18 06/22/18 Unknown History Potassium Chloride [Klor-Con 8] 8 meq PO DAILY 06/22/18 06/22/18 Unknown History Simethicone [Bicarsim] 80 mg PO DAILY 06/22/18 06/22/18 Unknown History Sulfamethoxazole/Trimethoprim 1 each PO BID 06/22/18 06/22/18 Unknown History [Sulfamethoxazole-Tmp Ss Tablet] cephALEXin [Keflex] 500 mg PO BID 06/22/18 06/22/18 Unknown History glipiZIDE [Glipizide] 10 mg PO BID 06/22/18 06/22/18 Unknown History Review of Systems Constitutional: no weight loss, no weight gain, no fever, no chills Ears, nose, mouth and throat: no ear pain, no ear discharge, no tinnitis, no decreased hearing, no nose pain, no nasal congestion Cardiovascular: chest pain, no orthopnea, no palpitations, no rapid/irregular heart beat, no edema, no syncope Respiratory: no cough, no cough with sputum, no excessive sputum, no hemoptysis , no shortness of breath Gastrointestinal: no nausea, no vomiting, no diarrhea Genitourinary Male: no hematuria, no flank pain, no discharge, no urinary frequency, no urinary hesitancy Rectal: no pain, no incontinence, no bleeding Musculoskeletal: no neck stiffness, no neck pain, no shooting arm pain, no arm numbness/tingling, no low back pain, no shooting leg pain Integumentary: no rash, no pruritis, no redness, no sores, no wounds Neurological: no transient paralysis, no paralysis, no weakness, no parathesias , no numbness, no tingling, no seizures Psychiatric: no anxiety, no memory loss, no change in sleep habits, no sleep disturbances, no insomnia, no hypersomnia, no change in appetite, no change in libido, no hallucinations Endocrine: no cold intolerance, no heat intolerance, no polyphagia, no excessive thirst, no polydipsia, no polyuria, no nocturia Hematologic/Lymphatic: no easy bruising, no easy bleeding, no lymphadenopathy, no lymphedema Allergic/Immunologic: no urticaria, no allergic rhinitis, no wheezing, no persistent infections, no anaphylaxis, no angioedema Exam - Constitutional Vitals: Temp Pulse Resp BP Pulse Ox 98.5 F 81 18 224/124 99 06/22/18 09:27 06/22/18 10:58 06/22/18 09:27 06/22/18 10:58 06/22/18 09:27 General appearance: Present: mild distress, obese - EENT Eyes: Present: PERRL ENT: hearing intact, clear oral mucosa - Neck Neck: Present: supple, normal ROM - Respiratory Respiratory effort: normal Respiratory: bilateral: CTA - Cardiovascular Heart Sounds: Present: S1 & S2. Absent: rub, click - Extremities Extremities: pulses symmetrical, No edema Peripheral Pulses: within normal limits - Abdominal General gastrointestinal: Present: soft, non-tender, non-distended, normal bowel sounds Male genitourinary: Present: normal - Integumentary Integumentary: Present: clear, warm, dry - Musculoskeletal Musculoskeletal: gait normal, strength equal bilaterally - Psychiatric Psychiatric: appropriate mood/affect, intact judgment & insight - Neurologic Neurologic: CNII-XII intact, moves all extremities Results - Labs CBC & Chem 7: 06/22/18 09:35 06/22/18 09:35 Labs: Abnormal lab results 06/22/18 06/22/18 Range/Units 09:35 09:35 Hgb 15.5 H (11.8-15.2) gm/dl Creatinine 0.7 L (0.8-1.5) mg/dL Glucose 145 H (75-100) mg/dL Troponin T 0.047 H (0.00-0.029) ng/mL Cholesterol 208 H (50-199) mg/dL LDL Cholesterol Direct 150 H (50-130) mg/dL Assessment and Plan - Patient Problems (1) NSTEMI (non-ST elevated myocardial infarction) Current Visit: Yes Status: Acute Plan to address problem: Admitted to ICU, cardiology consulted in ED, heparin drip, serial cardiac enzymes, ekg, bnp, The high probability of a clinically significant, sudden or life threatening deterioration of the [cardiac, respiratory, renal] system(s) required my full and direct attention, intervention and personal management. The aggregate critical care time was [65] minutes. This time is in addition to time spent performing reported procedures but includes the following: [x] Data Review and interpretation [x] Patient assessment and monitoring of vital signs [x] Documentation [x] Medication orders and management (2) Diastolic CHF Current Visit: Yes Status: Acute Qualifiers: Heart failure chronicity: acute Qualified Code(s): I50.31 - Acute diastolic (congestive) heart failure Plan to address problem: Admit to ICU, strict I/O, monitor uop q shift, bnp, cardiology consulted in ED (3) Hypertensive emergency Current Visit: Yes Status: Acute Plan to address problem: Initiate nitro drip, monitor bp q shift, supportive care. Goal systolic overnight 135-165mmHg. (4) Diabetes Current Visit: Yes Status: Acute Plan to address problem: AD diet, insulin, accu check (5) DVT prophylaxis Current Visit: Yes Status: Acute Plan to address problem: SCD to BLE while in bed.
--- NOTE | 2018-06-22 11:44 | XRay Report ---
AP CHEST: HISTORY: chest pain Mild cardiomegaly and central pulmonary venous congestion are suspected. The lungs are clear. No evidence for pneumonia, CHF or pneumothorax. IMPRESSION: Mild cardiomegaly and central pulmonary venous congestion but no CHF.
[2018-06-22] MEDS ORDERED: HEPARIN 10,000 UNITS/10 ML IV ONE (11:47)
[2018-06-22] MEDS ORDERED: SODIUM CHLORIDE FLUSH SYRINGE 10 ML IV PRN (11:49)
[2018-06-22] MEDS ORDERED: HEPARIN/ 0.45% NACL-25,000 UNIT/500 ML 25,000 UNIT/500 ML BAG IV SCH (12:00)
[2018-06-22] MEDS ORDERED: CARDENE 50 MG in NACL 0.9% 250ML 230 ML IV SCH (13:00)
[2018-06-22 13:01] LABS: INR 1.01 (0.87-1.13)
[2018-06-22 13:02] LABS: Partial Thromboplastin Time 29.6 Sec. (24.2-36.6)
--- NOTE | 2018-06-22 13:33 | Consultation ---
History of Present Illness Consult date: 06/22/18 Consult reason: elevated troponin History of present illness: This is a 52 year old male who presents to the emergency department with uncontrolled hypertension with a systolic blood pressure of 228 on presentation. Patient admits to running out of his medications a few days ago. In addition, the patient complained of chest pain thus this cardiac consultation. Patient describes his pain as non-exertional, right sided chest pain with nausea and vomiting. Cycled troponins are nonspecific thus far, of 0.045. His ECG shows sinus rhythm with LVH. Patient has a cardiac history of small vessel coronary artery disease. A cardiac catheterization 3 years ago demonstrated diffuse atherosclerosis of the small distal vessels, recommended for medical therapy. Left ventricular ejection fraction well preserved at 55-60%. Just less than a year ago, he had a normal stress thallium test and a normal left ventricular ejection fraction by echocardiogram. In addition to his coronary disease, he has a history of atrial flutter and has previously undergone atrial flutter ablation. Medications and Allergies Allergies Allergy/AdvReac Type Severity Reaction Status Date / Time No Known Allergies Allergy Verified 03/13/15 12:17 Home Medications Medication Instructions Recorded Confirmed Last Taken Type Carvedilol [Coreg] 25 mg PO BID #60 tablet 01/14/17 06/22/18 Unknown Rx Furosemide [Lasix TAB] 40 mg PO QDAY #30 tablet 01/14/17 06/22/18 1 Day Ago Rx ~08/06/17 Simvastatin [Zocor TAB] 20 mg PO QHS #30 tablet 01/14/17 06/22/18 1 Day Ago Rx ~08/06/17 Allopurinol [Zyloprim] 300 mg PO DAILY 06/22/18 06/22/18 Unknown History Furosemide [Lasix TAB] 40 mg PO DAILY 06/22/18 06/22/18 Unknown History Gabapentin [Neurontin] 300 mg PO TID 06/22/18 06/22/18 Unknown History Metformin HCl [Fortamet ER] 1,000 mg PO BID 06/22/18 06/22/18 Unknown History Potassium Chloride [Klor-Con 8] 8 meq PO DAILY 06/22/18 06/22/18 Unknown History Simethicone [Bicarsim] 80 mg PO DAILY 06/22/18 06/22/18 Unknown History Sulfamethoxazole/Trimethoprim 1 each PO BID 06/22/18 06/22/18 Unknown History [Sulfamethoxazole-Tmp Ss Tablet] cephALEXin [Keflex] 500 mg PO BID 06/22/18 06/22/18 Unknown History glipiZIDE [Glipizide] 10 mg PO BID 06/22/18 06/22/18 Unknown History Active Meds: Active Medications Heparin Sodium/Sodium Chloride (Heparin/ 0.45% Nacl-25,000 Unit/500 Ml) 25,000 unit in 500 mls @ 20 mls/hr IV TITRATE SIMONA; Protocol Last Admin: 06/22/18 12:49 Dose: 1,000 units/hr, 20 mls/hr Nitroglycerin/Dextrose (Tridil Drip 50mg/250ml) 50 mg in 250 mls @ 3 mls/hr IV TITR SIMONA; Protocol Sodium Chloride (Sodium Chloride Flush Syringe 10 Ml) 10 ml IV BID SIMONA Sodium Chloride (Sodium Chloride Flush Syringe 10 Ml) 10 ml IV PRN PRN PRN Reason: LINE FLUSH Physical Examination Vital Signs Temp Pulse Resp BP Pulse Ox 98.5 F 73 18 228/118 99 06/22/18 09:27 06/22/18 09:27 06/22/18 09:27 06/22/18 09:27 06/22/18 09:27 General appearance: no acute distress HEENT: Positive: PERRL Cardiac: Positive: Reg Rate and Rhythm Lungs: Positive: Decreased Breath Sounds Neuro: Positive: Grossly Intact Results 06/22/18 09:35 06/22/18 09:35 Coagulation 06/22/18 06/22/18 Range/Units 09:35 12:31 PT 13.4 13.8 (12.2-14.9) Sec. INR 0.97 1.01 (0.87-1.13) APTT 28.8 29.6 (24.2-36.6) Sec. Lipids 06/22/18 Range/Units 09:35 Triglycerides 113 (2-149) mg/dL Cholesterol 208 H (50-199) mg/dL HDL Cholesterol 50 (40-59) mg/dL Cholesterol/HDL Ratio 4.16 % CBC 06/22/18 Range/Units 09:35 WBC 10.3 (4.5-11.0) K/mm3 RBC 4.95 (3.65-5.03) M/mm3 Hgb 15.5 H (11.8-15.2) gm/dl Hct 45.3 (35.5-45.6) % Plt Count 202 (140-440) K/mm3 Lymph # 2.5 (1.2-5.4) K/mm3 [place] # 0.7 (0.0-0.8) K/mm3 Eos # 0.1 (0.0-0.4) K/mm3 Baso # 0.1 (0.0-0.1) K/mm3 Comprehensive Metabolic Panel 06/22/18 Range/Units 09:35 Sodium 137 (137-145) mmol/L Potassium 4.2 (3.6-5.0) mmol/L Chloride 98.0 (98-107) mmol/L Carbon Dioxide 25 (22-30) mmol/L BUN 13 (9-20) mg/dL Creatinine 0.7 L (0.8-1.5) mg/dL Glucose 145 H (75-100) mg/dL Calcium 9.6 (8.4-10.2) mg/dL Assessment and Plan Uncontrolled hypertension noncompliant with medications Chest pain, atypical Nonspecific troponin Diabetes Hx of Sleep apnea Hx of small vessel CAD recommend for medical therapy by [facility] 2014 normal MPI 07/2017 normal LVEF by echo 07/2017 Recommend: Intravenous nitroglycerin drip for optimal blood pressure management. We will discontinue intravenous heparin drip. We will instead use lovenox.
[2018-06-22] MEDS: TRIDIL DRIP 50MG/250ML 50 MG/250 ML BOTTLE IV SCH ×2 (14:39→20:10)
[2018-06-22] MEDS: CATAPRES PO PRN (15:56)
[2018-06-22] MEDS: PROCARDIA XL PO SCH (15:56)
[2018-06-22] MEDS: ZESTRIL PO SCH (15:57)
[2018-06-22] MEDS: COREG PO SCH (22:49)
[2018-06-22] MEDS: SODIUM CHLORIDE FLUSH SYRINGE 10 ML IV SCH (22:57)
[2018-06-22] MEDS: HumuLIN R SUB-Q SCH (23:15)
[2018-06-23] MEDS ORDERED: ATIVAN IV PRN ×9 (02:18→02:25)
[2018-06-23 04:26] LABS: BUN/Creatinine Ratio 17; Blood Urea Nitrogen 12 mg/dL (9-20); Calcium 9.1 mg/dL (8.4-10.2); Hemolysis Index 2
[2018-06-23] MEDS: HumuLIN R SUB-Q SCH ×4 (07:53→21:55)
[2018-06-23] MEDS: COREG PO SCH ×2 (09:20→21:54)
[2018-06-23] MEDS: ASPIRIN PO SCH (09:21)
[2018-06-23] MEDS: PROCARDIA XL PO SCH (09:21)
[2018-06-23] MEDS: ZESTRIL PO SCH (09:21)
--- NOTE | 2018-06-23 09:31 | Consultation ---
History of Present Illness Consult date: 06/23/18 Requesting physician: ABBY BUSTILLO Reason for consult: other (Hypertensive Emergency; NSTEMI) History of present illness: PULMONARY/CCM CONSULT NOTE (Full dictation # ) Please see dictated notes for full details Past History Past Medical History: CAD, diabetes, heart failure, hypertension, hyperlipidemia Past Surgical History: Other (RLE Vein clip) Social history: single, smoking. denies: alcohol abuse, prescription drug abuse Family history: hypertension Medications and Allergies Allergies Allergy/AdvReac Type Severity Reaction Status Date / Time No Known Allergies Allergy Verified 03/13/15 12:17 Home Medications Medication Instructions Recorded Confirmed Last Taken Type Carvedilol [Coreg] 25 mg PO BID #60 tablet 01/14/17 06/22/18 Unknown Rx Furosemide [Lasix TAB] 40 mg PO QDAY #30 tablet 01/14/17 06/22/18 1 Day Ago Rx ~08/06/17 Simvastatin [Zocor TAB] 20 mg PO QHS #30 tablet 01/14/17 06/22/18 1 Day Ago Rx ~08/06/17 Allopurinol [Zyloprim] 300 mg PO DAILY 06/22/18 06/22/18 Unknown History Furosemide [Lasix TAB] 40 mg PO DAILY 06/22/18 06/22/18 Unknown History Gabapentin [Neurontin] 300 mg PO TID 06/22/18 06/22/18 Unknown History Metformin HCl [Fortamet ER] 1,000 mg PO BID 06/22/18 06/22/18 Unknown History Potassium Chloride [Klor-Con 8] 8 meq PO DAILY 06/22/18 06/22/18 Unknown History Simethicone [Bicarsim] 80 mg PO DAILY 06/22/18 06/22/18 Unknown History Sulfamethoxazole/Trimethoprim 1 each PO BID 06/22/18 06/22/18 Unknown History [Sulfamethoxazole-Tmp Ss Tablet] cephALEXin [Keflex] 500 mg PO BID 06/22/18 06/22/18 Unknown History glipiZIDE [Glipizide] 10 mg PO BID 06/22/18 06/22/18 Unknown History Active Meds: Active Medications Aspirin (Aspirin) 325 mg PO QDAY [facility] Last Admin: 06/23/18 09:21 Dose: 325 mg Carvedilol (Coreg) 25 mg PO BID [facility] Last Admin: 06/23/18 09:20 Dose: 25 mg Clonidine HCl (Catapres) 0.1 mg PO Q2H PRN PRN Reason: Systolic BP greater than 160 Last Admin: 06/22/18 15:56 Dose: 0.1 mg Enoxaparin Sodium (Lovenox) 40 mg SUB-Q QDAY [facility] Last Admin: 06/23/18 09:22 Dose: 40 mg Insulin Human Regular (Humulin R) 0 units SUB-Q Q4HR [facility]; Protocol Last Admin: 06/23/18 07:53 Dose: Not Given Lisinopril (Zestril) 40 mg PO QDAY [facility] Last Admin: 06/23/18 09:21 Dose: 40 mg Lorazepam (Ativan) 2 mg IV Q1H PRN PRN Reason: CIWA-Ar 8-15 Lorazepam (Ativan) 4 mg IV Q15MIN PRN PRN Reason: CIWA-Ar >25 Lorazepam (Ativan) 4 mg IV Q1H PRN PRN Reason: CIWA-Ar 16-25 Nifedipine (Procardia Xl) 60 mg PO QDAY [facility] Last Admin: 06/23/18 09:21 Dose: 60 mg Pneumococcal Polyvalent Vaccine (Pneumovax 23) 0.5 ml IM .ONCE ONE Stop: 06/23/18 12:01 Sodium Chloride (Sodium Chloride Flush Syringe 10 Ml) 10 ml IV BID [facility] Last Admin: 06/22/18 22:57 Dose: 10 ml Sodium Chloride (Sodium Chloride Flush Syringe 10 Ml) 10 ml IV PRN PRN PRN Reason: LINE FLUSH Physical Examination Vital signs: Vital Signs Temp Pulse Resp BP Pulse Ox 98.5 F 73 18 228/118 99 06/22/18 09:27 06/22/18 09:27 06/22/18 09:27 06/22/18 09:27 06/22/18 09:27 Results - Laboratory Findings CBC and BMP: 06/22/18 09:35 06/23/18 03:38 PT/INR, D-dimer PT 13.8 Sec. (12.2-14.9) 06/22/18 12:31 INR 1.01 (0.87-1.13) 06/22/18 12:31 D-Dimer 204.17 ng/mlDDU (0-234) 10/04/18 09:35 Abnormal lab findings: Abnormal Labs 06/22/18 06/22/18 06/22/18 09:35 09:35 12:34 Hgb 15.5 H Creatinine 0.7 L Glucose 145 H POC Glucose Troponin T 0.047 H 0.045 H Cholesterol 208 H LDL Cholesterol Direct 150 H 06/22/18 06/22/18 06/23/18 19:31 20:28 03:38 Hgb Creatinine 0.7 L Glucose 111 H POC Glucose 272 H Troponin T 0.084 H D Cholesterol LDL Cholesterol Direct 06/23/18 05:00 Hgb Creatinine Glucose POC Glucose 115 H Troponin T Cholesterol LDL Cholesterol Direct
[2018-06-23] MEDS ORDERED: LOVENOX SUB-Q SCH (10:00)
[2018-06-23] MEDS: CATAPRES PO PRN (10:08)
[2018-06-23] MEDS ORDERED: LEXISCAN IV ONE ×2 (11:19→11:20)
--- NOTE | 2018-06-23 11:25 | Progress Note ---
Assessment and Plan - Patient Problems (1) Chest pain Current Visit: Yes Status: Acute Plan to address problem: Chest pain is atypical, does not appear anginal. To further assess his underlying small vessel coronary disease, noted on a cardiac catheterization 3 years ago, we will plan predischarge Persantin thallium. (2) Uncontrolled hypertension Current Visit: Yes Status: Acute Plan to address problem: For his uncontrolled hypertension, we will add a combination of Procardia XL and doxazosin. Subjective Date of service: 06/23/18 Interval history: Patient looks and feels well, no new complaints. There is intermittent, episodic sharp right-sided chest pain which lasts only seconds, and is unrelated to exertion. There is no shortness of breath, no palpitations and he otherwise looks and feels well. Objective Vital Signs Temp Pulse Pulse Resp Resp BP Pulse Ox 06/23/18 10:30 69 16 163/96 98 06/23/18 10:16 68 16 169/94 93 06/23/18 10:08 71 169/94 06/23/18 10:00 67 16 183/101 99 06/23/18 09:45 71 16 186/102 99 06/23/18 09:30 72 15 178/91 99 06/23/18 09:21 69 183/96 06/23/18 09:20 69 183/96 06/23/18 09:15 72 21 183/96 98 06/23/18 09:00 67 17 168/93 98 06/23/18 08:46 66 16 169/91 98 06/23/18 08:30 77 15 160/101 98 06/23/18 08:15 74 14 170/93 99 06/23/18 08:00 97.9 F 72 65 14 164/90 100 06/23/18 07:46 72 16 148/74 100 06/23/18 07:30 65 16 161/80 97 06/23/18 07:16 72 11 L 163/102 97 06/23/18 07:00 67 16 149/80 96 06/23/18 06:45 68 15 148/75 100 06/23/18 06:30 76 13 142/74 99 06/23/18 06:15 71 17 150/94 97 06/23/18 06:10 70 19 152/87 95 06/23/18 06:00 71 23 152/87 97 10/05/18 05:50 73 21 153/90 96 10/05/18 05:40 70 17 142/91 98 10/05/18 05:30 73 12 142/91 100 10/05/18 05:20 70 15 154/89 94 10/05/18 05:10 70 16 164/88 95 10/05/18 05:00 67 14 164/88 98 10/05/18 04:50 71 15 164/87 96 10/05/18 04:40 71 15 154/81 99 10/05/18 04:30 71 13 151/92 99 10/05/18 04:20 69 16 154/81 99 10/05/18 04:10 68 16 131/71 99 10/05/18 04:00 75 16 132/75 99 10/05/18 03:50 69 16 132/75 100 10/05/18 03:40 71 16 148/76 98 10/05/18 03:30 67 16 148/76 94 10/05/18 03:25 98 10/05/18 03:20 66 17 140/75 97 10/05/18 03:14 98.8 F 10/05/18 03:10 67 16 143/72 99 10/05/18 03:00 74 17 143/72 99 10/05/18 02:50 68 18 131/81 95 10/05/18 02:40 77 20 136/80 99 10/05/18 02:30 69 14 136/80 98 10/05/18 02:20 69 18 143/82 96 10/05/18 02:10 69 14 135/76 97 10/05/18 02:00 70 11 L 135/76 96 10/05/18 01:50 67 14 135/80 96 10/05/18 01:40 68 10 L 133/78 100 10/05/18 01:30 69 17 133/78 95 10/05/18 01:25 74 98 10/05/18 01:20 76 12 125/74 98 10/05/18 01:10 74 16 115/67 96 10/05/18 01:00 70 17 117/67 98 10/05/18 00:50 72 19 121/60 98 10/05/18 00:40 66 17 120/65 97 10/05/18 00:30 70 17 120/65 97 10/05/18 00:20 70 17 144/86 98 06/23/18 00:10 72 18 137/80 98 06/23/18 00:00 98.8 F 69 17 137/80 98 06/22/18 23:50 69 16 137/72 96 06/22/18 23:40 72 19 135/72 98 06/22/18 23:30 72 16 135/72 97 06/22/18 23:25 98 06/22/18 23:20 71 18 142/74 97 06/22/18 23:10 73 19 135/78 96 06/22/18 23:00 76 18 135/78 97 06/22/18 22:50 75 15 142/74 98 06/22/18 22:49 74 142/74 06/22/18 22:40 72 18 142/74 97 06/22/18 22:30 73 18 142/74 97 06/22/18 22:20 70 18 129/63 94 06/22/18 22:10 70 20 134/71 97 06/22/18 22:00 79 15 134/71 97 06/22/18 21:50 71 17 129/63 98 06/22/18 21:40 77 20 129/63 97 06/22/18 21:30 72 12 129/63 99 06/22/18 21:25 18 98 06/22/18 21:20 148/77 100 06/22/18 21:10 148/77 98 06/22/18 21:00 148/77 99 06/22/18 20:50 79 16 164/91 99 06/22/18 20:40 73 21 164/91 95 06/22/18 20:30 75 21 164/91 92 06/22/18 20:20 74 18 159/87 97 06/22/18 20:10 77 20 154/82 98 06/22/18 20:00 80 18 171/93 92 06/22/18 19:53 98.8 F 06/22/18 19:50 78 21 164/105 99 06/22/18 19:40 75 13 165/86 99 06/22/18 19:30 74 24 171/93 92 06/22/18 19:25 99 06/22/18 19:20 74 18 171/93 99 06/22/18 19:10 72 22 170/93 98 06/22/18 19:00 76 14 170/93 98 06/22/18 18:50 76 16 163/85 96 06/22/18 18:40 79 22 160/84 99 06/22/18 18:30 78 12 132/72 100 06/22/18 18:20 74 21 132/72 99 06/22/18 18:10 73 21 137/73 99 06/22/18 18:00 75 18 137/73 98 06/22/18 17:50 76 19 137/72 99 06/22/18 17:40 72 18 147/78 99 06/22/18 17:30 69 18 201/98 06/22/18 17:20 73 17 202/101 98 06/22/18 17:10 73 15 209/107 97 06/22/18 17:00 72 16 209/107 99 06/22/18 16:50 77 18 98 06/22/18 16:42 81 22 184/102 98 06/22/18 16:00 97.4 F L 06/22/18 15:57 81 222/93 06/22/18 15:56 81 222/93 06/22/18 13:45 19 188/101 97 06/22/18 13:30 19 195/102 97 06/22/18 13:24 97.9 F 06/22/18 13:16 18 196/98 95 06/22/18 13:00 13 237/130 100 06/22/18 12:48 66 221/118 06/22/18 12:45 20 237/130 98 06/22/18 12:30 19 221/118 97 06/22/18 12:15 234/123 06/22/18 12:00 76 13 218/115 98 06/22/18 11:47 61 220/118 06/22/18 11:45 63 16 218/115 97 06/22/18 11:30 64 15 214/117 95 - Physical Examination General: Appears Well, No Apparent Distress HEENT: Positive: PERRL Neck: Positive: neck supple Cardiac: Positive: Reg Rate and Rhythm Lungs: Positive: Decreased Breath Sounds Neuro: Positive: Grossly Intact Abdomen: Positive: Soft Skin: Positive: Clear Extremities: Absent: edema - Labs and Meds Coagulation 06/22/18 Range/Units 12:31 PT 13.8 (12.2-14.9) Sec. INR 1.01 (0.87-1.13) APTT 29.6 (24.2-36.6) Sec. Comprehensive Metabolic Panel 06/23/18 Range/Units 03:38 Sodium 139 (137-145) mmol/L Potassium 3.6 (3.6-5.0) mmol/L Chloride 103.4 (98-107) mmol/L Carbon Dioxide 26 (22-30) mmol/L BUN 12 (9-20) mg/dL Creatinine 0.7 L (0.8-1.5) mg/dL Glucose 111 H (75-100) mg/dL Calcium 9.1 (8.4-10.2) mg/dL
[2018-06-23] MEDS ORDERED: PNEUMOVAX 23 IM ONE (12:00)
[2018-06-23] MEDS ORDERED: AFLURIA QUAD 2018-2019 SYRINGE IM ONE (12:00)
--- NOTE | 2018-06-23 12:56 | Progress Note ---
Assessment and Plan Assessment and plan: Chest pain. Cardiology reports pain appears to be atypical. Cardiology to have Lexiscan. Accelerated hypertension. Procardia and Doxil Zosyn added to regimen. Nitroglycerin drip has been discontinued. Diabetes mellitus type 2. Continue Accu-Cheks and sliding scale insulin. Coronary artery disease. Patient with history of small vessel disease. Elevated troponin. Nonspecific elevation. Etiology likely secondary to accelerated hypertension. Continue to trend enzymes. Disposition. Patient will be transferred to the floor. History Interval history: No new issues overnight. No complaints of chest pain currently. Hospitalist Physical - Constitutional Vitals: Temp Pulse Resp BP Pulse Ox 97.9 F 69 16 163/96 98 06/23/18 08:00 06/23/18 10:30 06/23/18 10:30 06/23/18 10:30 06/23/18 10:30 General appearance: Present: mild distress, obese - EENT Eyes: Present: PERRL, EOM intact ENT: hearing intact, clear oral mucosa, dentition normal - Neck Neck: Present: supple, normal ROM - Respiratory Respiratory effort: normal Respiratory: bilateral: CTA - Cardiovascular Rhythm: regular Heart Sounds: Present: S1 & S2. Absent: gallop, rub - Extremities Extremities: no ischemia, No edema, Full ROM - Abdominal General gastrointestinal: soft, non-tender, non-distended, normal bowel sounds - Integumentary Integumentary: Present: clear, warm, dry - Neurologic Neurologic: CNII-XII intact, moves all extremities Results - Labs CBC & Chem 7: 06/22/18 09:35 06/23/18 03:38 Labs: Laboratory Last Values WBC 10.3 K/mm3 (4.5-11.0) 06/22/18 09:35 RBC 4.95 M/mm3 (3.65-5.03) 06/22/18 09:35 Hgb 15.5 gm/dl (11.8-15.2) H 06/22/18 09:35 Hct 45.3 % (35.5-45.6) 06/22/18 09:35 MCV 92 fl (84-94) 06/22/18 09:35 MCH 31 pg (28-32) 06/22/18 09:35 MCHC 34 % (32-34) 06/22/18 09:35 RDW 13.8 % (13.2-15.2) 06/22/18 09:35 Plt Count 202 K/mm3 (140-440) 06/22/18 09:35 Lymph % (Auto) 24.7 % (13.4-35.0) 06/22/18 09:35 [place] % (Auto) 6.9 % (0.0-7.3) 06/22/18 09:35 Eos % (Auto) 1.4 % (0.0-4.3) 06/22/18 09:35 Baso % (Auto) 1.1 % (0.0-1.8) 06/22/18 09:35 Lymph # 2.5 K/mm3 (1.2-5.4) 06/22/18 09:35 [place] # 0.7 K/mm3 (0.0-0.8) 06/22/18 09:35 Eos # 0.1 K/mm3 (0.0-0.4) 06/22/18 09:35 Baso # 0.1 K/mm3 (0.0-0.1) 06/22/18 09:35 Seg Neutrophils % 65.9 % (40.0-70.0) 06/22/18 09:35 Seg Neutrophils # 6.8 K/mm3 (1.8-7.7) 06/22/18 09:35 PT 13.8 Sec. (12.2-14.9) 06/22/18 12:31 INR 1.01 (0.87-1.13) 06/22/18 12:31 APTT 29.6 Sec. (24.2-36.6) 06/22/18 12:31 D-Dimer 204.17 ng/mlDDU (0-234) 06/22/18 09:35 Sodium 139 mmol/L (137-145) 06/23/18 03:38 Potassium 3.6 mmol/L (3.6-5.0) 06/23/18 03:38 Chloride 103.4 mmol/L (98-107) 06/23/18 03:38 Carbon Dioxide 26 mmol/L (22-30) 06/23/18 03:38 Anion Gap 13 mmol/L 06/23/18 03:38 BUN 12 mg/dL (9-20) 06/23/18 03:38 Creatinine 0.7 mg/dL (0.8-1.5) L 06/23/18 03:38 Estimated GFR > 60 ml/min 06/23/18 03:38 BUN/Creatinine Ratio 17 % 06/23/18 03:38 Glucose 111 mg/dL (75-100) H 06/23/18 03:38 POC Glucose 121 (70-105) H 06/23/18 10:24 Calcium 9.1 mg/dL (8.4-10.2) 06/23/18 03:38 Troponin T 0.084 ng/mL (0.00-0.029) H D 06/22/18 19:31 NT-Pro-B Natriuret Pep 286.2 pg/mL (0-900) 06/22/18 09:35 Triglycerides 113 mg/dL (2-149) 06/22/18 09:35 Cholesterol 208 mg/dL (50-199) H 06/22/18 09:35 LDL Cholesterol Direct 150 mg/dL (50-130) H 06/22/18 09:35 HDL Cholesterol 50 mg/dL (40-59) 06/22/18 09:35 Cholesterol/HDL Ratio 4.16 % 06/22/18 09:35
[2018-06-23] MEDS: CARDURA PO SCH ×2 (14:15→21:53)
[2018-06-23] MEDS: SODIUM CHLORIDE FLUSH SYRINGE 10 ML IV SCH ×2 (14:36→21:55)
[2018-06-24] MEDS: HumuLIN R SUB-Q SCH ×3 (00:43→12:15)
[2018-06-24 05:01] LABS: Hematocrit 41.9 % (35.5-45.6); Hemoglobin 14.4 gm/dl (11.8-15.2)
--- NOTE | 2018-06-24 09:41 | Treadmill Report ---
THALLIUM STRESS TEST REPORT LEFT VENTRICLE: Left ventricle is mildly dilated. Perfusion study demonstrates a small fixed basal inferior defect of mild intensity, no reversibility on the resting study. Gated analysis demonstrates mild left ventricular systolic dysfunction with ejection fraction 45%. CONCLUSION: Small fixed basal inferior defect, appears consistent with diaphragmatic attenuation artifact. There is no significant ischemia demonstrated on this study. Clinical correlation is recommended. JOB# [id number] CA/NTS
[2018-06-24] MEDS ORDERED: LOVENOX SUB-Q SCH (10:00)
[2018-06-24] MEDS: ZESTRIL PO SCH (10:27)
[2018-06-24] MEDS: CARDURA PO SCH (10:28)
[2018-06-24] MEDS: PROCARDIA XL PO SCH (10:28)
[2018-06-24] MEDS: COREG PO SCH (10:28)
[2018-06-24] MEDS: ASPIRIN PO SCH (10:29)
--- NOTE | 2018-06-24 11:17 | Progress Note ---
Subjective Date of service: 06/24/18 Interval history: (1) Chest pain Current Visit: Yes Status: Acute Plan to address problem: Chest pain is atypical, does not appear anginal. To further assess his underlying small vessel coronary disease, noted on a cardiac catheterization 3 years ago. Nuclear stress this admission negative for ischemia, EF 45%. His chest pain has resolved, he can go home on current anti-HTN meds. (2) Uncontrolled hypertension Current Visit: Yes Status: Acute Plan to address problem: Improved. Objective Vital Signs Temp Pulse Pulse Resp BP Pulse Ox 06/24/18 10:28 73 148/80 06/24/18 10:27 73 148/80 06/24/18 07:21 97.7 F 73 18 148/80 100 06/24/18 03:54 72 96 06/24/18 03:53 98.4 F 72 18 143/72 97 06/23/18 23:17 97.9 F 76 20 133/83 97 06/23/18 22:00 80 71 18 98 06/23/18 21:54 71 156/85 06/23/18 21:53 156/85 06/23/18 19:41 18 156/85 06/23/18 15:47 98.7 F 78 18 159/86 98 06/23/18 15:20 71 17 153/83 97 06/23/18 15:10 68 16 153/83 99 06/23/18 15:00 72 15 153/83 97 06/23/18 14:50 76 15 156/85 98 06/23/18 14:40 75 17 156/85 100 06/23/18 14:30 69 16 156/85 98 06/23/18 14:20 70 18 153/90 98 06/23/18 14:15 67 153/90 06/23/18 14:10 71 19 153/90 99 06/23/18 14:00 74 18 147/83 98 06/23/18 13:50 74 20 147/83 99 06/23/18 13:30 73 14 147/83 98 06/23/18 13:16 71 16 163/96 97 06/23/18 13:00 68 11 L 146/81 97 06/23/18 12:52 74 16 06/23/18 12:04 78 153/77 06/23/18 12:03 76 146/82 06/23/18 12:02 76 146/87 06/23/18 12:01 75 119/71 06/23/18 12:00 98.1 F 78 165/101 06/23/18 11:59 82 168/96 06/23/18 11:32 66 172/98 - Physical Examination General: Appears Well, No Apparent Distress HEENT: Positive: PERRL Neck: Positive: neck supple Cardiac: Positive: Reg Rate and Rhythm, S1/S2 Lungs: Positive: Normal Exam Neuro: Positive: Grossly Intact Abdomen: Positive: Soft Skin: Positive: Clear Extremities: Absent: edema - Labs and Meds CBC 06/24/18 Range/Units 04:20 Hgb 14.4 (11.8-15.2) gm/dl Hct 41.9 (35.5-45.6) % Plt Count 180 (140-440) K/mm3
[2018-06-24 12:11] VITALS: BP 172/90
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
--- NOTE | 2018-06-24 15:42 | Progress Note ---
Subjective Date of service: 06/24/18 Objective Vital Signs - 12hr 06/24/18 06/24/18 06/24/18 03:53 03:54 07:21 Temperature 98.4 F 97.7 F Pulse Rate 72 72 73 Respiratory 18 18 Rate Blood Pressure 143/72 148/80 O2 Sat by Pulse 97 96 100 Oximetry 06/24/18 06/24/18 06/24/18 10:27 10:28 11:19 Temperature 97.4 F L Pulse Rate 73 73 75 Respiratory 18 Rate Blood Pressure 148/80 148/80 172/90 O2 Sat by Pulse 97 Oximetry CBC and BMP: 06/24/18 04:20 06/23/18 03:38 ABG, PT/INR, D-dimer: PT/INR, D-dimer PT 13.8 Sec. (12.2-14.9) 06/22/18 12:31 INR 1.01 (0.87-1.13) 06/22/18 12:31 D-Dimer 204.17 ng/mlDDU (0-234) 06/22/18 09:35 Abnormal lab findings: Abnormal Labs 06/22/18 06/22/18 06/22/18 09:35 09:35 12:34 Hgb 15.5 H Creatinine 0.7 L Glucose 145 H POC Glucose Troponin T 0.047 H 0.045 H Cholesterol 208 H LDL Cholesterol Direct 150 H 06/22/18 06/22/18 06/23/18 19:31 20:28 03:38 Hgb Creatinine 0.7 L Glucose 111 H POC Glucose 272 H Troponin T 0.084 H D Cholesterol LDL Cholesterol Direct 06/23/18 06/23/18 06/23/18 05:00 10:24 16:20 Hgb Creatinine Glucose POC Glucose 115 H 121 H 141 H Troponin T Cholesterol LDL Cholesterol Direct 06/23/18 06/24/18 06/24/18 21:19 05:45 06:20 Hgb Creatinine Glucose POC Glucose 140 H 133 H 126 H Troponin T Cholesterol LDL Cholesterol Direct 06/24/18 11:20 Hgb Creatinine Glucose POC Glucose 148 H Troponin T Cholesterol LDL Cholesterol Direct
== END 2018-06-24 14:30 | disposition home or self-care (01) | DRG 205 ==
LOC: ED 09:17 → CC1 11:51 → 4A 06-23 15:51
PROVIDERS: ADMIT Internal Medicine; ATTEND Hospitalist
PROC: 3E0234Z Introduction of Serum, Toxoid and Vaccine into Muscle, Percutaneous Approach (ICD-10-PCS; principal; 2018-06-23)
DX: M94.0 Chondrocostal junction syndrome [Tietze] (principal); I50.31 Acute diastolic (congestive) heart failure; E11.9 Type 2 diabetes mellitus without complications; I25.10 Atherosclerotic heart disease of native coronary artery without angina pectoris; J45.909 Unspecified asthma, uncomplicated; F17.210 Nicotine dependence, cigarettes, uncomplicated; E78.5 Hyperlipidemia, unspecified; J44.9 Chronic obstructive pulmonary disease, unspecified; I16.1 Hypertensive emergency; M10.9 Gout, unspecified; I16.0 Hypertensive urgency; G47.33 Obstructive sleep apnea (adult) (pediatric); Z82.49 Family history of ischemic heart disease and other diseases of the circulatory system; Z79.84 Long term (current) use of oral hypoglycemic drugs; Z79.899 Other long term (current) drug therapy; Z91.14 Patient's other noncompliance with medication regimen; I25.2 Old myocardial infarction; Z23 Encounter for immunization
CPT/HCPCS: 36415; 71045; 78452; 80048; 80061; 82962; 83880; 84484; 85014; 85018; 85025; 85049; 85379; 85610; 85730; 90686; 90732; 93005; 93010; 93017; 96374; 96375; A9502; J0360; J1644; J1650; J1815; J2785; J7050

== ENCOUNTER 2018-12-13 07:02 | Emergency (ER) | payer MEDICAID ==
[2018-12-13 08:24] VITALS: BP 134/72
--- NOTE | 2018-12-13 09:20 | Emergency Department Report ---
ED General Adult HPI - General Chief complaint: Chest Pain Stated complaint: CHEST PAIN Time Seen by Provider: 12/13/18 08:50 Source: patient Mode of arrival: Ambulatory Limitations: No Limitations - History of Present Illness Initial comments: 53-year-old male presents to the ED reporting a lump to the left upper back and also a lump to his right lower rib cage. Patient states both have been present for 8 months and are causing pain. Patient states he was seen previously by his PCP, had an x-ray done that was normal at that time. Engineer Second Assistant: Dr Morgan PCP: cannot remember name -: month(s) (8) Location: chest, back Quality: aching Consistency: intermittent Improves with: none Worsens with: other (palpation) Associated Symptoms: denies: chest pain, diaphoresis, nausea/vomiting, shortness of breath - Related Data Home Medications Medication Instructions Recorded Confirmed Last Taken Allopurinol [Zyloprim] 300 mg PO DAILY 06/22/18 06/22/18 Unknown Gabapentin [Neurontin] 300 mg PO TID 06/22/18 06/22/18 Unknown Simethicone [Bicarsim] 80 mg PO DAILY 06/22/18 06/22/18 Unknown Sulfamethoxazole/Trimethoprim 1 each PO BID 06/22/18 06/22/18 Unknown [Sulfamethoxazole-Tmp Ss Tablet] cephALEXin [Keflex] 500 mg PO BID 06/22/18 06/22/18 Unknown Previous Rx's Medication Instructions Recorded Last Taken Type Carvedilol [Coreg] 25 mg PO BID #60 tablet 01/14/17 Unknown Rx Furosemide [Lasix TAB] 40 mg PO QDAY #30 tablet 01/14/17 1 Day Ago Rx ~08/06/17 Aspirin [Aspirin TAB] 325 mg PO QDAY #30 tablet 06/24/18 Unknown Rx Carvedilol [Coreg] 25 mg PO BID #60 tablet 06/24/18 Unknown Rx Doxazosin [Cardura] 2 mg PO BID #60 tablet 06/24/18 Unknown Rx Furosemide [Lasix TAB] 40 mg PO DAILY #30 tablet 06/24/18 Unknown Rx Lisinopril [Zestril TAB] 40 mg PO QDAY #30 tablet 06/24/18 Unknown Rx Metformin HCl [Fortamet ER] 1,000 mg PO BID #60 tab.er.24 06/24/18 Unknown Rx NIFEdipine XL [Procardia Xl] 60 mg PO QDAY #30 tablet 06/24/18 Unknown Rx Potassium Chloride [Klor-Con 8] 8 meq PO DAILY #30 tablet 06/24/18 Unknown Rx Simvastatin [Zocor TAB] 20 mg PO QHS #30 tablet 06/24/18 Unknown Rx glipiZIDE [Glipizide] 10 mg PO BID #60 tablet 06/24/18 Unknown Rx traMADol [Ultram] 50 mg PO Q6HR PRN #7 tablet 12/13/18 Unknown Rx Allergies Allergy/AdvReac Type Severity Reaction Status Date / Time No Known Allergies Allergy Verified 03/13/15 12:17 ED Review of Systems ROS: Stated complaint: CHEST PAIN Other details as noted in HPI Comment: All other systems reviewed and negative Constitutional: denies: chills, fever Respiratory: denies: shortness of breath Cardiovascular: denies: chest pain Gastrointestinal: denies: nausea, vomiting Musculoskeletal: as per HPI ED Past Medical Hx - Past Medical History Previous Medical History?: Yes Hx Hypertension: Yes Hx Congestive Heart Failure: Yes Hx Diabetes: Yes Hx Deep Vein Thrombosis: No Hx Asthma: Yes Hx COPD: Yes Additional medical history: sleep apnea,gout,elevated cholesterol - Surgical History Past Surgical History?: Yes Additional Surgical History: Clip to RLE vein - Social History Smoking Status: Current Every Day Smoker Substance Use Type: None - Medications Home Medications: Home Medications Medication Instructions Recorded Confirmed Last Taken Type Carvedilol [Coreg] 25 mg PO BID #60 tablet 01/14/17 06/22/18 Unknown Rx Furosemide [Lasix TAB] 40 mg PO QDAY #30 tablet 01/14/17 06/22/18 1 Day Ago Rx ~08/06/17 Allopurinol [Zyloprim] 300 mg PO DAILY 06/22/18 06/22/18 Unknown History Gabapentin [Neurontin] 300 mg PO TID 06/22/18 06/22/18 Unknown History Simethicone [Bicarsim] 80 mg PO DAILY 06/22/18 06/22/18 Unknown History Sulfamethoxazole/Trimethoprim 1 each PO BID 06/22/18 06/22/18 Unknown History [Sulfamethoxazole-Tmp Ss Tablet] cephALEXin [Keflex] 500 mg PO BID 06/22/18 06/22/18 Unknown History Aspirin [Aspirin TAB] 325 mg PO QDAY #30 tablet 06/24/18 Unknown Rx Carvedilol [Coreg] 25 mg PO BID #60 tablet 06/24/18 Unknown Rx Doxazosin [Cardura] 2 mg PO BID #60 tablet 06/24/18 Unknown Rx Furosemide [Lasix TAB] 40 mg PO DAILY #30 tablet 06/24/18 Unknown Rx Lisinopril [Zestril TAB] 40 mg PO QDAY #30 tablet 06/24/18 Unknown Rx Metformin HCl [Fortamet ER] 1,000 mg PO BID #60 tab.er.24 06/24/18 Unknown Rx NIFEdipine XL [Procardia Xl] 60 mg PO QDAY #30 tablet 06/24/18 Unknown Rx Potassium Chloride [Klor-Con 8] 8 meq PO DAILY #30 tablet 06/24/18 Unknown Rx Simvastatin [Zocor TAB] 20 mg PO QHS #30 tablet 06/24/18 Unknown Rx glipiZIDE [Glipizide] 10 mg PO BID #60 tablet 06/24/18 Unknown Rx traMADol [Ultram] 50 mg PO Q6HR PRN #7 tablet 12/13/18 Unknown Rx ED Physical Exam - General Limitations: No Limitations General appearance: alert, in no apparent distress - Head Head exam: Present: atraumatic, normocephalic - Eye Eye exam: Present: normal appearance - ENT ENT exam: Present: mucous membranes moist - Neck Neck exam: Present: normal inspection - Respiratory Respiratory exam: Present: normal lung sounds bilaterally, chest wall tenderness (anterior right lower rib appears more prominent than left, tender to palpation). Absent: respiratory distress - Cardiovascular Cardiovascular Exam: Present: regular rate, normal rhythm - GI/Abdominal GI/Abdominal exam: Present: soft. Absent: distended, tenderness - Extremities Exam Extremities exam: Present: normal inspection - Back Exam Back exam: Present: other (small lipoma noted on left upper back) - Skin Skin exam: Present: warm, dry, intact, normal color. Absent: rash ED Course Vital Signs 12/13/18 08:18 Temperature 97.7 F Pulse Rate 65 Respiratory 16 Rate Blood Pressure 134/72 O2 Sat by Pulse 98 Oximetry ED Medical Decision Making - EKG Data -: EKG Interpreted by Nv EKG shows normal: sinus rhythm, axis, intervals, QRS complexes - EKG Data Interpretation: other (T wave inversions V5, V6) - Radiology Data Radiology results: report reviewed, image reviewed - Medical Decision Making - CXR unremarkable - likely lipoma on back - gen surg follow up given - return precautions given - Differential Diagnosis lipoma, bone mass Critical care attestation.: If time is entered above; I have spent that time in minutes in the direct care of this critically ill patient, excluding procedure time. ED Disposition Clinical Impression: Lipoma of back Disposition: DC- TO HOME OR SELFCARE Is pt being admited?: No Condition: Stable Instructions: Lipoma (ED) Prescriptions: traMADol [Ultram] 50 mg PO Q6HR PRN #7 tablet PRN Reason: Pain Referrals: PRIMARY CARE, [Referring] - 3-5 Days NITA CATHERINE DO [Staff Physician] - 3-5 Days Time of Disposition: 10:05
--- NOTE | 2018-12-13 09:38 | XRay Report ---
ROUTINE CHEST, TWO VIEWS: HISTORY: Lump on lower right rib cage. The trachea, heart, mediastinal contour, lung severino and bony thorax are unremarkable. IMPRESSION: Unremarkable chest x-ray. No abnormality in the lower right rib cage is detected on x-ray.
== END 2018-12-13 10:12 | disposition home or self-care (01) ==
LOC: ED 07:02
DX: D17.39 Benign lipomatous neoplasm of skin and subcutaneous tissue of other sites (principal); I11.0 Hypertensive heart disease with heart failure; I50.9 Heart failure, unspecified; E11.9 Type 2 diabetes mellitus without complications; J44.9 Chronic obstructive pulmonary disease, unspecified; F17.200 Nicotine dependence, unspecified, uncomplicated
CPT/HCPCS: 71046; 93005; 93010

== ENCOUNTER 2019-11-08 10:25 | Emergency (ER) | payer SELFPAY ==
[2019-11-08] MEDS ORDERED: SODIUM CHLORIDE 0.9% 1000 ML 1,000 ML IV ONE ×3 (14:44→16:22)
[2019-11-08] MEDS ORDERED: cloNIDine 0.2 MG TAB PO ONE (14:44)
--- NOTE | 2019-11-08 14:51 | Emergency Department Report ---
ED General Adult HPI - General Chief complaint: High BP Stated complaint: BLURRED VISION Time Seen by Provider: 11/08/19 14:34 Source: patient Mode of arrival: Ambulatory Limitations: No Limitations - History of Present Illness Initial comments: This is a 54-year-old male with a history of hypertension who presents the ED complaining headache and blurry vision that started last night. Patient states he was recently cut off from his insurance July of last year. Patient states since then he has not been taking his blood pressure medication appro priately because he was trying to make it last. Patient states he has been out of his blood pressure medication for about 2 weeks now. Patient states headache is intermittent and usually resolves with medication. Patient states blurry vision that began last night stating blurrier. He denies chest pain shortness of breath, fever, chills, nausea vomiting - Related Data Home Medications Medication Instructions Recorded Confirmed Last Taken Gabapentin 300 mg PO TID 06/22/18 06/22/18 Unknown Simethicone [Bicarsim] 80 mg PO DAILY 06/22/18 06/22/18 Unknown Sulfamethoxazole/Trimethoprim 1 each PO BID 06/22/18 06/22/18 Unknown [Sulfamethoxazole-Tmp Ss Tablet] allopurinoL [Zyloprim] 300 mg PO DAILY 06/22/18 06/22/18 Unknown cephALEXin [Keflex] 500 mg PO BID 06/22/18 06/22/18 Unknown Previous Rx's Medication Instructions Recorded Last Taken Type Furosemide [Lasix TAB] 40 mg PO QDAY #30 tablet 01/14/17 1 Day Ago Rx ~08/06/17 carvediloL [Coreg] 25 mg PO BID #60 tablet 01/14/17 Unknown Rx Aspirin 325 mg PO QDAY #30 tablet 06/24/18 Unknown Rx Doxazosin [Cardura] 2 mg PO BID #60 tablet 06/24/18 Unknown Rx Furosemide [Lasix TAB] 40 mg PO DAILY #30 tablet 06/24/18 Unknown Rx Metformin HCl [Fortamet ER] 1,000 mg PO BID #60 tab.er.24 06/24/18 Unknown Rx Potassium Chloride [Klor-Con 8] 8 meq PO DAILY #30 tablet 06/24/18 Unknown Rx Simvastatin [Zocor TAB] 20 mg PO QHS #30 tablet 06/24/18 Unknown Rx glipiZIDE [Glipizide] 10 mg PO BID #60 tablet 06/24/18 Unknown Rx traMADoL [Ultram] 50 mg PO Q6HR PRN #7 tablet 12/13/18 Unknown Rx NIFEdipine XL [Procardia Xl] 60 mg PO QDAY #30 tablet 11/08/19 Unknown Rx carvediloL [Coreg] 25 mg PO BID #60 tablet 11/08/19 Unknown Rx lisinopriL [Zestril TAB] 40 mg PO QDAY #30 tablet 11/08/19 Unknown Rx Allergies Allergy/AdvReac Type Severity Reaction Status Date / Time No Known Allergies Allergy Verified 11/08/19 10:29 ED Review of Systems ROS: Stated complaint: BLURRED VISION Other details as noted in HPI Comment: All other systems reviewed and negative ED Past Medical Hx - Past Medical History Hx Hypertension: Yes Hx Congestive Heart Failure: Yes Hx Diabetes: Yes Hx Deep Vein Thrombosis: No Hx Asthma: Yes Hx COPD: Yes Additional medical history: sleep apnea,gout,elevated cholesterol - Surgical History Additional Surgical History: Clip to RLE vein - Social History Smoking Status: Current Every Day Smoker Substance Use Type: None - Medications Home Medications: Home Medications Medication Instructions Recorded Confirmed Last Taken Type Furosemide [Lasix TAB] 40 mg PO QDAY #30 tablet 01/14/17 06/22/18 1 Day Ago Rx ~08/06/17 carvediloL [Coreg] 25 mg PO BID #60 tablet 01/14/17 06/22/18 Unknown Rx Gabapentin 300 mg PO TID 06/22/18 06/22/18 Unknown History Simethicone [Bicarsim] 80 mg PO DAILY 06/22/18 06/22/18 Unknown History Sulfamethoxazole/Trimethoprim 1 each PO BID 06/22/18 06/22/18 Unknown History [Sulfamethoxazole-Tmp Ss Tablet] allopurinoL [Zyloprim] 300 mg PO DAILY 06/22/18 06/22/18 Unknown History cephALEXin [Keflex] 500 mg PO BID 06/22/18 06/22/18 Unknown History Aspirin 325 mg PO QDAY #30 tablet 06/24/18 Unknown Rx Doxazosin [Cardura] 2 mg PO BID #60 tablet 06/24/18 Unknown Rx Furosemide [Lasix TAB] 40 mg PO DAILY #30 tablet 06/24/18 Unknown Rx Metformin HCl [Fortamet ER] 1,000 mg PO BID #60 tab.er.24 06/24/18 Unknown Rx Potassium Chloride [Klor-Con 8] 8 meq PO DAILY #30 tablet 06/24/18 Unknown Rx Simvastatin [Zocor TAB] 20 mg PO QHS #30 tablet 06/24/18 Unknown Rx glipiZIDE [Glipizide] 10 mg PO BID #60 tablet 06/24/18 Unknown Rx traMADoL [Ultram] 50 mg PO Q6HR PRN #7 tablet 12/13/18 Unknown Rx NIFEdipine XL [Procardia Xl] 60 mg PO QDAY #30 tablet 11/08/19 Unknown Rx carvediloL [Coreg] 25 mg PO BID #60 tablet 11/08/19 Unknown Rx lisinopriL [Zestril TAB] 40 mg PO QDAY #30 tablet 11/08/19 Unknown Rx ED Physical Exam - General Limitations: No Limitations General appearance: alert, in no apparent distress - Head Head exam: Present: atraumatic, normocephalic, normal inspection - Eye Eye exam: Present: normal appearance, PERRL, EOMI, other ( peripheral vision degradation) Pupils: Present: normal accommodation - Expanded Eye Exam Expanded Posterior chamber: [place] Spots: Bilateral - ENT ENT exam: Present: mucous membranes moist - Neck Neck exam: Present: normal inspection, full ROM - Respiratory Respiratory exam: Present: normal lung sounds bilaterally. Absent: respiratory distress - Cardiovascular Cardiovascular Exam: Present: regular rate, normal rhythm. Absent: systolic murmur, diastolic murmur, rubs, gallop - GI/Abdominal GI/Abdominal exam: Present: soft, normal bowel sounds - Rectal Rectal exam: Present: deferred - Extremities Exam Extremities exam: Present: normal inspection - Back Exam Back exam: Present: normal inspection - Neurological Exam Neurological exam: Present: alert, oriented X3 - Psychiatric Psychiatric exam: Present: normal affect, normal mood - Skin Skin exam: Present: warm, dry, intact, normal color. Absent: rash ED Course Vital Signs 11/08/19 11/08/19 11/08/19 10:30 15:10 16:19 Temperature 98.5 F Pulse Rate 97 H 88 Respiratory 18 16 Rate Blood Pressure 184/111 188/113 Blood Pressure [Right] O2 Sat by Pulse 94 Oximetry 11/08/19 11/08/19 11/08/19 16:39 16:41 16:53 Temperature Pulse Rate 85 83 Respiratory 20 21 Rate Blood Pressure 199/117 Blood Pressure 199/117 187/114 [Right] O2 Sat by Pulse 94 89 Oximetry 11/08/19 17:02 Temperature Pulse Rate 88 Respiratory Rate Blood Pressure Blood Pressure [Right] O2 Sat by Pulse Oximetry ED Medical Decision Making - Lab Data Result diagrams: 11/08/19 15:21 11/08/19 15:21 Laboratory Last Values WBC 8.2 K/mm3 (4.5-11.0) 11/08/19 15:21 RBC 4.77 M/mm3 (3.65-5.03) 11/08/19 15:21 Hgb 14.7 gm/dl (11.8-15.2) 11/08/19 15:21 Hct 43.1 % (35.5-45.6) 11/08/19 15:21 MCV 91 fl (84-94) 11/08/19 15:21 MCH 31 pg (28-32) 11/08/19 15:21 MCHC 34 % (32-34) 11/08/19 15:21 RDW 12.9 % (13.2-15.2) L 11/08/19 15:21 Plt Count 158 K/mm3 (140-440) 11/08/19 15:21 Lymph % (Auto) 13.2 % (13.4-35.0) L 11/08/19 15:21 [place] % (Auto) 8.0 % (0.0-7.3) H 11/08/19 15:21 Eos % (Auto) 0.6 % (0.0-4.3) 11/08/19 15:21 Baso % (Auto) 0.6 % (0.0-1.8) 11/08/19 15:21 Lymph # 1.1 K/mm3 (1.2-5.4) L 11/08/19 15:21 [place] # 0.7 K/mm3 (0.0-0.8) 11/08/19 15:21 Eos # 0.1 K/mm3 (0.0-0.4) 11/08/19 15:21 Baso # 0.0 K/mm3 (0.0-0.1) 11/08/19 15:21 Seg Neutrophils % 77.6 % (40.0-70.0) H 11/08/19 15:21 Seg Neutrophils # 6.4 K/mm3 (1.8-7.7) 11/08/19 15:21 VBG pH 7.436 (7.320-7.420) H 11/08/19 17:01 Sodium 133 mmol/L (137-145) L 11/08/19 15:21 Potassium 4.2 mmol/L (3.6-5.0) 11/08/19 15:21 Chloride 91.9 mmol/L (98-107) L 11/08/19 15:21 Carbon Dioxide 24 mmol/L (22-30) 11/08/19 15:21 Anion Gap 21 mmol/L 11/08/19 15:21 BUN 12 mg/dL (9-20) 11/08/19 15:21 Creatinine 0.9 mg/dL (0.8-1.5) 11/08/19 15:21 Estimated GFR > 60 ml/min 11/08/19 15:21 BUN/Creatinine Ratio 13 % 11/08/19 15:21 Glucose 542 mg/dL (75-100) H* 11/08/19 15:21 POC Glucose 308 (70-105) H 11/08/19 17:59 Calcium 9.3 mg/dL (8.4-10.2) 11/08/19 15:21 Total Bilirubin 1.10 mg/dL (0.1-1.2) 11/08/19 15:21 AST 48 units/L (5-40) H 11/08/19 15:21 ALT 160 units/L (7-56) H 11/08/19 15:21 Alkaline Phosphatase 116 units/L (35-129) 11/08/19 15:21 Troponin T 0.064 ng/mL (0.00-0.029) H D 11/08/19 17:01 NT-Pro-B Natriuret Pep 867.7 pg/mL (0-900) 11/08/19 15:21 Total Protein 7.3 g/dL (6.3-8.2) 11/08/19 15:21 Albumin 3.9 g/dL (3.9-5) 11/08/19 15:21 Albumin/Globulin Ratio 1.1 % 11/08/19 15:21 Triglycerides 98 mg/dL (2-149) 11/08/19 15:21 Cholesterol 198 mg/dL (50-199) 11/08/19 15:21 LDL Cholesterol Direct 129 mg/dL (50-130) 11/08/19 15:21 HDL Cholesterol 56 mg/dL (40-59) 11/08/19 15:21 Cholesterol/HDL Ratio 3.53 % 11/08/19 15:21 Urine Color Straw (Yellow) 11/08/19 17:35 Urine Turbidity Clear (Clear) 11/08/19 17:35 Urine pH 6.0 (5.0-7.0) 11/08/19 17:35 Ur Specific [place] 1.020 (1.003-1.030) 11/08/19 17:35 Urine Protein <15 mg/dl mg/dL (Negative) 11/08/19 17:35 Urine Glucose (UA) >=500 mg/dL (Negative) 11/08/19 17:35 Urine Ketones Tr mg/dL (Negative) 11/08/19 17:35 Urine Blood Neg (Negative) 11/08/19 17:35 Urine Nitrite Neg (Negative) 11/08/19 17:35 Urine Bilirubin Neg (Negative) 11/08/19 17:35 Urine Urobilinogen 2.0 mg/dL (<2.0) 11/08/19 17:35 Ur Leukocyte Esterase Neg (Negative) 11/08/19 17:35 Urine WBC (Auto) < 1.0 /HPF (0.0-6.0) 11/08/19 17:35 Urine RBC (Auto) 2.0 /HPF (0.0-6.0) 11/08/19 17:35 U Epithel Cells (Auto) 1.0 /HPF (0-13.0) 11/08/19 17:35 - EKG Data EKG shows normal: sinus rhythm Rate: normal - EKG Data Interpretation: normal EKG - Medical Decision Making 54-year-old male who presents the ED with hyperglycemia Labs were completed. Patient was hyperglycemic at 543, troponin was elevated. After discussing with patient patient states that he has had elevated troponin in the past and this was his baseline. 2 troponins were collected which shows a decrease. Patient did not have any chest pain in the ED at all today. Patient received 3 L of fluids, 7 units of insulin. Vision is intact bilaterally. Visual acuity performed Glucose reduced to 308 Discussed with patient to follow-up with primary care physician and radio board operator announcer. Hypertension medication refill. Patient states he has insulin at home which he takes NovoLog regularly Critical care attestation.: If time is entered above; I have spent that time in minutes in the direct care of this critically ill patient, excluding procedure time. ED Disposition Clinical Impression: Diabetic retinopathy, Hyperglycemia due to type 2 diabetes mellitus, Elevated troponin level, Hypertensive urgency, Blurred vision, left eye Disposition: DC-01 TO HOME OR SELFCARE Is pt being admited?: No Does the pt Need Aspirin: No Condition: Stable Instructions: Diabetes Mellitus Type 2 in Adults (ED), Chronic Hypertension (ED) Additional Instructions: Make sure to follow up with the primary care physician as discussed. Also follow up with eye doctor as soon as possible Take all your medications as you've been prescribed. If you have any worsening symptoms or develop new symptoms please return to ED immediately. Prescriptions: carvediloL [Coreg] 25 mg PO BID #60 tablet NIFEdipine XL [Procardia Xl] 60 mg PO QDAY #30 tablet lisinopriL [Zestril TAB] 40 mg PO QDAY #30 tablet Referrals: PRIMARY CAREMD [Primary Care Provider] - 3-5 Days [facility] MD [Staff Physician] - 3-5 Days Forms: Accompanied Note, Work/School Release Form(ED) Time of Disposition: 17:59
[2019-11-08 15:42] LABS: Basophils % (Auto) 0.6 % (0.0-1.8); Eosinophils # (Auto) 0.1 K/mm3 (0.0-0.4); Eosinophils % (Auto) 0.6 % (0.0-4.3); Hematocrit 43.1 % (35.5-45.6); Hemoglobin 14.7 gm/dl (11.8-15.2); Lymphocytes # (Auto) 1.1 K/mm3 (1.2-5.4); Lymphocytes % (Auto) 13.2 % (13.4-35.0); Mean Corpuscular HGB Conc 34 % (32-34); Mean Corpuscular Volume 91 fl (84-94); Monocytes # (Auto) 0.7 K/mm3 (0.0-0.8); Platelet Count 158 K/mm3 (140-440); Red Blood Count 4.77 M/mm3 (3.65-5.03); Red Cell Distribution Width 12.9 % (13.2-15.2)
[2019-11-08 16:04] LABS: Alanine Aminotransferase 160 units/L (7-56); Albumin 3.9 g/dL (3.9-5); BUN/Creatinine Ratio 13; Blood Urea Nitrogen 12 mg/dL (9-20); Calcium 9.3 mg/dL (8.4-10.2); Hemolysis Index 19
[2019-11-08] MEDS ORDERED: INSULIN REGULAR, HUMAN 100 UNITS/1 ML IV ONE (16:23)
[2019-11-08 16:25] LABS: Chol/HDL Ratio 3.53 %
[2019-11-08 16:54] VITALS: BP 187/114
[2019-11-08 17:45] LABS: Bilirubin,Urine NEG (Negative); Blood,Urine NEG (Negative); Color,Urine Straw (Yellow); Protein,Urine <15 mg/dL mg/dL (Negative)
[2019-11-08 17:53] LABS: WBC,Urine < 1.0 /HPF (0.0-6.0)
== END 2019-11-08 18:43 | disposition home or self-care (01) ==
LOC: ED 10:25
DX: E13.319 Other specified diabetes mellitus with unspecified diabetic retinopathy without macular edema (principal); E13.65 Other specified diabetes mellitus with hyperglycemia; I11.0 Hypertensive heart disease with heart failure; I50.9 Heart failure, unspecified; J44.1 Chronic obstructive pulmonary disease with (acute) exacerbation; F17.200 Nicotine dependence, unspecified, uncomplicated; E78.00 Pure hypercholesterolemia, unspecified; Z79.899 Other long term (current) drug therapy
CPT/HCPCS: 36415; 80053; 80061; 81001; 82805; 82962; 83880; 84484; 85025; 93005; 93010; 96361; 96374; 96375; 99284; J7030; J1815

== ENCOUNTER 2020-07-13 12:22 | Observation (INO) | payer MEDICAID ==
[~2020-07-13 12:22] MED LIST: FLU VACC QUAD 2020-2021 (6 months +)/PF 60 0.5 ML SYRINGE IM ONE
--- NOTE | 2020-07-13 12:59 | Emergency Department Report ---
ED Neuro Deficit HPI - General Chief Complaint: Neuro Symptoms/Deficit Stated Complaint: CANT SEE Time Seen by Provider: 07/13/20 12:36 Source: patient Mode of arrival: Ambulatory Limitations: No Limitations - History of Present Illness Initial Comments: This is a 54-year-old gentleman who states he is compliant with his insulin and blood pressure medicine. Not withstanding he presents with stroke symptoms of greater than 30 hours duration and malignant hypertension. He states he last took his insulin last night and that his sugar has been running high (in the 200s). He states that he woke up yesterday morning with left-sided weakness. He is a poor historian but apparently he has had a prior right occipital, cerebellar and left thalamic stroke judging from his current CT examination.. He states he was treated for this here. However the record indicates otherwise. Further questioning he states it was at [place]. He states that he has not been able to walk since yesterday and has experienced new left-sided weakness. He has chronic visual field cuts as well has an extraocular motor palsy, diplopia particularly on the left gaze. These are chronic deficits. He also states that he is mildly although chronically weak in his right side. He is not complaining of headache, shortness of breath nor chest pain. Hospitalization 2018: Reason for admission: cp Condition: Serious Hospital course: 52-year-old man with coronary artery disease and chronic hypertension. A cardiac catheterization less than 3 years ago reported small distal vessel disease which was recommended for medical therapy. He is closely followed up in the outpatient by his primary assemblyman or woman Dr. Morgan. The patient presented to the hospital complaining of right-sided chest pain. He described intermittent nonexertional pain to the right thorax near the mid axillary line. The patient was noted to have accelerated hypertension with systolic blood pressure in the 220 range. The patient was seen by cardiology in consultation and felt to have chest pain that was atypical and did not appear anginal. The patient had a nuclear stress test this admission that was negative for ischemia with an EF of 45%. The patient's chest pain resolved. The patient feels that his pain is musculoskeletal in nature and related to certain positional m ovements. He stated that he picked up a heavy box at home and felt pain at that time. Etiology of chest pain is costochondritis. Dedicated discharge time 32 minutes. Disposition: DC- TO HOME OR SELFCARE Time spent for discharge: 32 - Discharge Diagnoses (1) Costochondral chest pain Status: Acute (2) Acute chest pain Status: Acute (3) Diabetes Status: Acute (4) Hypertensive emergency Status: Acute (5) Uncontrolled hypertension Status: Acute (6) Diabetes mellitus Status: Acute -: days(s) Location: left arm, left leg Presenting Symptoms: Present: Weak/Paralyzed One Side History of same: Yes (States chronic weakness and numbness on the right side. Chronic visual fie) Place: home Severity: moderate Quality: weak Improves With: none Worsens With: none Context: other (During the night 2 nights ago) Associated Symptoms: denies other symptoms Treatments Prior to Arrival: none - Related Data Home Medications: Home Medications Medication Instructions Recorded Confirmed Last Taken Gabapentin 300 mg PO TID 06/22/18 07/13/20 Unknown allopurinoL [Zyloprim] 300 mg PO DAILY 06/22/18 07/13/20 07/13/20 Dextromethorphan HBr [Robafen 15 mg PO Q6H PRN 07/13/20 07/13/20 Unknown Cough] Ibuprofen [Motrin Ib] 200 mg PO Q6H PRN 07/13/20 07/13/20 Unknown Ipratropium/Albuter (Nf) 2 puff IH QID 07/13/20 07/13/20 Unknown [Combivent (Nf)] Labetalol HCl [Labetalol 300mg TAB] 300 mg PO TID 07/13/20 07/13/20 02/01/20 Phenylephrine/Dm/Acetaminop/GG 20 ml PO Q6H PRN 07/13/20 07/13/20 07/12/20 [Mucinex Ekwh-Ksj-Nakxytzamj Lq] Sitagliptin Phosphate [Januvia] 100 mg PO QDAY 07/13/20 07/13/20 07/13/20 Previous Rx's Medication Instructions Recorded Last Taken Type Aspirin 325 mg PO QDAY #30 tablet 06/24/18 Unknown Rx Furosemide [Lasix TAB] 40 mg PO DAILY #30 tablet 06/24/18 07/13/20 Rx Potassium Chloride [Klor-Con 8] 8 meq PO DAILY #30 tablet 06/24/18 07/13/20 Rx Simvastatin [Zocor TAB] 20 mg PO QHS #30 tablet 06/24/18 07/13/20 Rx NIFEdipine XL [Procardia Xl] 60 mg PO QDAY #30 tablet 11/08/19 07/13/20 Rx carvediloL [Coreg] 25 mg PO BID #60 tablet 11/08/19 07/13/20 Rx lisinopriL [Zestril TAB] 40 mg PO QDAY #30 tablet 11/08/19 07/13/20 Rx Allergies/Adverse Reactions: Allergies Allergy/AdvReac Type Severity Reaction Status Date / Time No Known Allergies Allergy Verified 11/08/19 10:29 ED Review of Systems ROS: Stated complaint: CANT SEE Other details as noted in HPI Constitutional: denies: chills, fever Eyes: denies: eye pain, eye discharge, vision change ENT: denies: ear pain, throat pain Respiratory: denies: cough, shortness of breath, wheezing Cardiovascular: denies: chest pain, palpitations Endocrine: no symptoms reported Gastrointestinal: denies: abdominal pain, nausea, diarrhea Genitourinary: denies: urgency, dysuria Musculoskeletal: denies: back pain, joint swelling, arthralgia Skin: denies: rash, lesions Neurological: as per HPI, weakness. denies: headache Psychiatric: denies: anxiety, depression Hematological/Lymphatic: denies: easy bleeding, easy bruising ED Past Medical Hx - Past Medical History Previous Medical History?: Yes Hx Hypertension: Yes Hx Congestive Heart Failure: Yes Hx Diabetes: Yes Hx Deep Vein Thrombosis: No Hx Asthma: Yes Hx COPD: Yes Additional medical history: sleep apnea,gout,elevated cholesterol - Surgical History Past Surgical History?: Yes Additional Surgical History: Clip to RLE vein - Social History Smoking Status: Current Every Day Smoker Substance Use Type: Alcohol, Prescribed Other Social History: Patient admits that he has been driving despite physician's admonition to the contrary. 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 - Medications Home Medications: Home Medications Medication Instructions Recorded Confirmed Last Taken Type Gabapentin 300 mg PO TID 06/22/18 07/13/20 Unknown History allopurinoL [Zyloprim] 300 mg PO DAILY 06/22/18 07/13/20 07/13/20 History Aspirin 325 mg PO QDAY #30 tablet 06/24/18 07/13/20 Unknown Rx Furosemide [Lasix TAB] 40 mg PO DAILY #30 tablet 06/24/18 07/13/20 07/13/20 Rx Potassium Chloride [Klor-Con 8] 8 meq PO DAILY #30 tablet 06/24/18 07/13/20 07/13/20 Rx Simvastatin [Zocor TAB] 20 mg PO QHS #30 tablet 06/24/18 07/13/20 07/13/20 Rx NIFEdipine XL [Procardia Xl] 60 mg PO QDAY #30 tablet 11/08/19 07/13/20 07/13/20 Rx carvediloL [Coreg] 25 mg PO BID #60 tablet 11/08/19 07/13/20 07/13/20 Rx lisinopriL [Zestril TAB] 40 mg PO QDAY #30 tablet 11/08/19 07/13/20 07/13/20 Rx Dextromethorphan HBr [Robafen 15 mg PO Q6H PRN 07/13/20 07/13/20 Unknown History Cough] Ibuprofen [Motrin Ib] 200 mg PO Q6H PRN 07/13/20 07/13/20 Unknown History Ipratropium/Albuter (Nf) 2 puff IH QID 07/13/20 07/13/20 Unknown History [Combivent (Nf)] Labetalol HCl [Labetalol 300mg TAB] 300 mg PO TID 07/13/20 07/13/20 02/01/20 History Phenylephrine/Dm/Acetaminop/GG 20 ml PO Q6H PRN 07/13/20 07/13/20 07/12/20 History [Mucinex Wdau-Dxr-Ugvwbnrypp Lq] Sitagliptin Phosphate [Januvia] 100 mg PO QDAY 07/13/20 07/13/20 07/13/20 History ED Neuro Physical Exam - General Limitations: No Limitations General appearance: alert, in no apparent distress Suspected Stroke: Yes - Head Head exam: Present: atraumatic, normocephalic - Eye Eye exam: Present: normal appearance Pupils: Present: other (6th nerve palsy on the left,) - ENT ENT exam: Present: mucous membranes moist - Neck Neck exam: Present: normal inspection - Respiratory Respiratory exam: Present: normal lung sounds bilaterally. Absent: respiratory distress - Cardiovascular Cardiovascular Exam: Present: regular rate, normal rhythm. Absent: systolic murmur, diastolic murmur, rubs, gallop - GI/Abdominal GI/Abdominal exam: Present: soft, normal bowel sounds. Absent: distended, tenderness, guarding, rebound - Rectal Rectal exam: Present: deferred - Extremities Exam Extremities exam: Present: normal inspection - Back Exam Back exam: Present: normal inspection - Neurological Exam Neurological exam: Present: alert, oriented X3, motor sensory deficit. Absent: CN II-XII intact - NIHSS Assessment Interval: Baseline 1a. Level of Consciousness: alert/keenly responsive 1b. LOC Questions: answers both correctly 1c. LOC Commands: performs tasks correctly 2. Best Gaze: partial gaze palsy 3. Visual: partial hemianopia 4. Facial Palsy: normal symmetrical movement 5b. Motor Arm Right: no drift 5a. Motor Arm Left: no drift (Patient passed a test of drift but does appear to be somewhat weak) 6a. Motor Leg Left: drift 6b. Motor Leg Right: no drift 7. Limb Ataxia: absent 8. Sensory: mild/moderate sensory loss (Right side) 9. Best Language: no aphasia 10. Dysarthria: normal 11. Extinction/Inattention: no abnormality Total Score: 4 Stroke Severity: Minor Stroke - Psychiatric Psychiatric exam: Present: normal affect, normal mood - Skin Skin exam: Present: warm, dry, intact, normal color. Absent: rash ED Course Vital Signs 07/13/20 07/13/20 07/13/20 12:28 12:45 12:48 Temperature 97.6 F Pulse Rate 98 H 86 Respiratory 18 18 18 Rate Blood Pressure 209/131 Blood Pressure 193/113 [Left] O2 Sat by Pulse 98 98 100 Oximetry 07/13/20 07/13/20 07/13/20 12:49 13:05 13:15 Temperature Pulse Rate 86 75 Respiratory 19 Rate Blood Pressure 193/113 172/100 Blood Pressure [Left] O2 Sat by Pulse 98 98 Oximetry 07/13/20 07/13/20 07/13/20 13:30 13:45 14:00 Temperature Pulse Rate 76 72 71 Respiratory 21 20 11 L Rate Blood Pressure 179/107 179/107 186/110 Blood Pressure [Left] O2 Sat by Pulse 98 99 98 Oximetry - Reevaluation(s) Reevaluation #1: Improved blood pressure after 20 of labetalol. Awaiting teleneurology consult. Admit to hospitalist service. 07/13/20 13:59 - Lab Data Result diagrams: 07/13/20 13:17 07/13/20 13:17 Lab Results 07/13/20 07/13/20 07/13/20 Range/Units 12:46 13:17 13:17 WBC 9.0 (4.5-11.0) K/mm3 RBC 5.09 H (3.65-5.03) M/mm3 Hgb 15.9 H (11.8-15.2) gm/dl Hct 46.5 H (35.5-45.6) % MCV 91 (84-94) fl MCH 31 (28-32) pg MCHC 34 (32-34) % RDW 13.8 (13.2-15.2) % Plt Count 211 (140-440) K/mm3 Lymph % (Auto) 18.8 (13.4-35.0) % Alexander % (Auto) 7.0 (0.0-7.3) % Eos % (Auto) 1.0 (0.0-4.3) % Baso % (Auto) 0.5 (0.0-1.8) % Lymph # (Auto) 1.7 (1.2-5.4) K/mm3 Alexander # (Auto) 0.6 (0.0-0.8) K/mm3 Eos # (Auto) 0.1 (0.0-0.4) K/mm3 Baso # (Auto) 0.0 (0.0-0.1) K/mm3 Seg Neutrophils % 72.7 H (40.0-70.0) % Seg Neutrophils # 6.6 (1.8-7.7) K/mm3 PT 12.5 (12.2-14.9) Sec. INR 0.92 (0.87-1.13) APTT 25.2 (24.2-36.6) Sec. Thrombin Time (15.1-19.6) Sec. Sodium (137-145) mmol/L Potassium (3.6-5.0) mmol/L Chloride (98-107) mmol/L Carbon Dioxide (22-30) mmol/L Anion Gap mmol/L BUN (9-20) mg/dL Creatinine (0.8-1.3) mg/dL Estimated GFR ml/min BUN/Creatinine Ratio % Glucose (75-100) mg/dL POC Glucose 200 H (70-105) mg/dL Calcium (8.4-10.2) mg/dL Magnesium (1.7-2.3) mg/dL Total Bilirubin (0.1-1.2) mg/dL Direct Bilirubin (0-0.2) mg/dL AST (5-40) units/L ALT (7-56) units/L Alkaline Phosphatase (35-129) units/L Troponin T (0.00-0.029) ng/mL NT-Pro-B Natriuret Pep (0-900) pg/mL Total Protein (6.3-8.2) g/dL Albumin (3.9-5) g/dL Albumin/Globulin Ratio % Triglycerides (2-149) mg/dL Cholesterol (50-199) mg/dL LDL Cholesterol Direct (50-130) mg/dL HDL Cholesterol (40-59) mg/dL Cholesterol/HDL Ratio % 10/25/20 10/25/20 Range/Units 13:17 13:17 WBC (4.5-11.0) K/mm3 RBC (3.65-5.03) M/mm3 Hgb (11.8-15.2) gm/dl Hct (35.5-45.6) % MCV (84-94) fl MCH (28-32) pg MCHC (32-34) % RDW (13.2-15.2) % Plt Count (140-440) K/mm3 Lymph % (Auto) (13.4-35.0) % Alexander % (Auto) (0.0-7.3) % Eos % (Auto) (0.0-4.3) % Baso % (Auto) (0.0-1.8) % Lymph # (Auto) (1.2-5.4) K/mm3 Alexander # (Auto) (0.0-0.8) K/mm3 Eos # (Auto) (0.0-0.4) K/mm3 Baso # (Auto) (0.0-0.1) K/mm3 Seg Neutrophils % (40.0-70.0) % Seg Neutrophils # (1.8-7.7) K/mm3 PT (12.2-14.9) Sec. INR (0.87-1.13) APTT (24.2-36.6) Sec. Thrombin Time 17.5 (15.1-19.6) Sec. Sodium 140 (137-145) mmol/L Potassium 3.8 (3.6-5.0) mmol/L Chloride 102.1 (98-107) mmol/L Carbon Dioxide 29 (22-30) mmol/L Anion Gap 13 mmol/L BUN 11 (9-20) mg/dL Creatinine 0.8 (0.8-1.3) mg/dL Estimated GFR > 60 ml/min BUN/Creatinine Ratio 14 % Glucose 223 H (75-100) mg/dL POC Glucose (70-105) mg/dL Calcium 9.0 (8.4-10.2) mg/dL Magnesium 2.20 (1.7-2.3) mg/dL Total Bilirubin 0.40 (0.1-1.2) mg/dL Direct Bilirubin < 0.2 (0-0.2) mg/dL AST 25 (5-40) units/L ALT 27 (7-56) units/L Alkaline Phosphatase 99 (35-129) units/L Troponin T 0.065 H (0.00-0.029) ng/mL NT-Pro-B Natriuret Pep 189.6 (0-900) pg/mL Total Protein 6.8 (6.3-8.2) g/dL Albumin 3.6 L (3.9-5) g/dL Albumin/Globulin Ratio 1.1 % Triglycerides 114 (2-149) mg/dL Cholesterol 287 H (50-199) mg/dL LDL Cholesterol Direct 211 H (50-130) mg/dL HDL Cholesterol 70 H (40-59) mg/dL Cholesterol/HDL Ratio 4.10 % Laboratory Results - last 24 hr 07/13/20 07/13/20 07/13/20 12:46 13:17 13:17 WBC 9.0 RBC 5.09 H Hgb 15.9 H Hct 46.5 H MCV 91 MCH 31 MCHC 34 RDW 13.8 Plt Count 211 Lymph % (Auto) 18.8 Alexander % (Auto) 7.0 Eos % (Auto) 1.0 Baso % (Auto) 0.5 Lymph # (Auto) 1.7 Alexander # (Auto) 0.6 Eos # (Auto) 0.1 Baso # (Auto) 0.0 Seg Neutrophils % 72.7 H Seg Neutrophils # 6.6 PT 12.5 INR 0.92 APTT 25.2 Thrombin Time Sodium Potassium Chloride Carbon Dioxide Anion Gap BUN Creatinine Estimated GFR BUN/Creatinine Ratio Glucose POC Glucose 200 H Calcium Magnesium Total Bilirubin Direct Bilirubin AST ALT Alkaline Phosphatase Troponin T NT-Pro-B Natriuret Pep Total Protein Albumin Albumin/Globulin Ratio Triglycerides Cholesterol LDL Cholesterol Direct HDL Cholesterol Cholesterol/HDL Ratio 07/13/20 07/13/20 13:17 13:17 WBC RBC Hgb Hct MCV MCH MCHC RDW Plt Count Lymph % (Auto) Alexander % (Auto) Eos % (Auto) Baso % (Auto) Lymph # (Auto) Alexander # (Auto) Eos # (Auto) Baso # (Auto) Seg Neutrophils % Seg Neutrophils # PT INR APTT Thrombin Time 17.5 Sodium 140 Potassium 3.8 Chloride 102.1 Carbon Dioxide 29 Anion Gap 13 BUN 11 Creatinine 0.8 Estimated GFR > 60 BUN/Creatinine Ratio 14 Glucose 223 H POC Glucose Calcium 9.0 Magnesium 2.20 Total Bilirubin 0.40 Direct Bilirubin < 0.2 AST 25 ALT 27 Alkaline Phosphatase 99 Troponin T 0.065 H NT-Pro-B Natriuret Pep 189.6 Total Protein 6.8 Albumin 3.6 L Albumin/Globulin Ratio 1.1 Triglycerides 114 Cholesterol 287 H LDL Cholesterol Direct 211 H HDL Cholesterol 70 H Cholesterol/HDL Ratio 4.10 - EKG Data -: EKG Interpreted by De EKG shows normal: sinus rhythm, axis (Left axis deviation), intervals, QRS complexes, ST-T waves Rate: normal Interpretation: nonspecific ST-T wave philipp, LVH (Suggests LVH, ectopic atrial beats) - Radiology Data Radiology results: image reviewed FINDINGS: Intracranial: Encephalomalacia in the right occipital lobe and right cerebellum from prior infarctions. No acute infarction is visualized. Remote left thalamic lacunar infarction. No intracranial hemorrhage. No extra axial collection.. No hydrocephalus. No herniation. Sinuses: Paranasal sinuses and mastoid air cells are essentially clear. Orbits: Globes are intact. Calvarium: No acute fracture. IMPRESSION: 1. No acute abnormality. 2. Remote right occipital and right cerebellar infarctions. Chest x-ray no acute process Critical care attestation.: If time is entered above; I have spent that time in minutes in the direct care of this critically ill patient, excluding procedure time. ED Disposition Clinical Impression: Malignant hypertension, Elevated troponin Stroke Qualifiers: CVA mechanism: unspecified Qualified Code(s): I63.9 - Cerebral infarction, unspecified Disposition: DC-09 OP ADMIT IP TO THIS HOSP Is pt being admited?: Yes Does the pt Need Aspirin: Yes Condition: Stable Instructions: Hypertension (ED) Referrals: SHARA LEWIS MD [Primary Care Provider] - 3-5 Days Time of Disposition: 14:16
--- NOTE | 2020-07-13 13:17 | Cat Scan Report ---
CT head/brain wo con INDICATION: Blurry vision. TECHNIQUE: Routine CT head. All CT scans at this location are performed using CT dose reduction for A EFFIE by means of automated exposure control. COMPARISON: None. FINDINGS: Intracranial: Encephalomalacia in the right occipital lobe and right cerebellum from prior infarction s. No acute infarction is visualized. Remote left thalamic lacunar infarction. No intracranial hemorr darron. No extra axial collection.. No hydrocephalus. No herniation. Sinuses: Paranasal sinuses and mastoid air cells are essentially clear. Orbits: Globes are intact. Calvarium: No acute fracture. IMPRESSION: 1. No acute abnormality. 2. Remote right occipital and right cerebellar infarctions. Signer Name: Subhash Segundo MD Signed: 07/13/2020 1:12 PM Workstation Name: [id number]
--- NOTE | 2020-07-13 13:30 | XRay Report ---
XR chest 1V ap INDICATION / CLINICAL INFORMATION: hypertension COMPARISON: 12/13/2018 FINDINGS: SUPPORT DEVICES: None. HEART / MEDIASTINUM: No significant abnormality. LUNGS / PLEURA: Lungs are clear. Costophrenic sulci are sharp. No pneumothorax. ADDITIONAL FINDINGS: No significant additional findings. IMPRESSION: 1. No acute findings. Signer Name: Subhash Segundo MD Signed: 07/13/2020 1:26 PM Workstation Name: [id number]
[2020-07-13 13:45] LABS: Basophils % (Auto) 0.5 % (0.0-1.8); Eosinophils # (Auto) 0.1 K/mm3 (0.0-0.4); Hematocrit 46.5 % (35.5-45.6); Hemoglobin 15.9 gm/dl (11.8-15.2); Lymphocytes # (Auto) 1.7 K/mm3 (1.2-5.4); Lymphocytes % (Auto) 18.8 % (13.4-35.0); Mean Corpuscular HGB Conc 34 % (32-34); Mean Corpuscular Volume 91 fl (84-94); Monocytes # (Auto) 0.6 K/mm3 (0.0-0.8); Platelet Count 211 K/mm3 (140-440); Red Blood Count 5.09 M/mm3 (3.65-5.03); Red Cell Distribution Width 13.8 % (13.2-15.2)
[2020-07-13 13:52] LABS: INR 0.92 (0.87-1.13)
[2020-07-13 13:53] LABS: Partial Thromboplastin Time 25.2 Sec. (24.2-36.6)
[2020-07-13 14:03] LABS: Alanine Aminotransferase 27 units/L (7-56); Albumin 3.6 g/dL (3.9-5); BUN/Creatinine Ratio 14; Blood Urea Nitrogen 11 mg/dL (9-20); Hemolysis Index 8
[2020-07-13 14:09] LABS: Bilirubin,Direct < 0.2 mg/dL (0-0.2)
[2020-07-13 14:15] LABS: HDL Cholesterol 70 mg/dL (40-59); LDL Cholesterol,Direct 211 mg/dL (50-130)
--- NOTE | 2020-07-13 14:39 | Emergency Department Report ---
ED Neuro Deficit HPI - General Chief Complaint: Neuro Symptoms/Deficit Stated Complaint: CANT SEE Time Seen by Provider: 07/13/20 12:36 Source: patient Mode of arrival: Ambulatory Limitations: No Limitations - History of Present Illness -: Gradual, days(s) Location: left arm, left leg History of same: Yes (States chronic weakness and numbness on the right side. Chronic visual fie) Place: home Severity: moderate Quality: weak Improves With: none Worsens With: none Treatments Prior to Arrival: none - Related Data Home Medications: Home Medications Medication Instructions Recorded Confirmed Last Taken Gabapentin 300 mg PO TID 06/22/18 07/13/20 Unknown allopurinoL [Zyloprim] 300 mg PO DAILY 06/22/18 07/13/20 07/13/20 Dextromethorphan HBr [Robafen 15 mg PO Q6H PRN 07/13/20 07/13/20 Unknown Cough] Ibuprofen [Motrin Ib] 200 mg PO Q6H PRN 07/13/20 07/13/20 Unknown Ipratropium/Albuter (Nf) 2 puff IH QID 07/13/20 07/13/20 Unknown [Combivent (Nf)] Labetalol HCl [Labetalol 300mg TAB] 300 mg PO TID 07/13/20 07/13/20 02/01/20 Phenylephrine/Dm/Acetaminop/GG 20 ml PO Q6H PRN 07/13/20 07/13/20 07/12/20 [Mucinex Mltj-Glb-Rmcvahkroo Lq] Sitagliptin Phosphate [Januvia] 100 mg PO QDAY 07/13/20 07/13/20 07/13/20 Previous Rx's Medication Instructions Recorded Last Taken Type Aspirin 325 mg PO QDAY #30 tablet 06/24/18 Unknown Rx Furosemide [Lasix TAB] 40 mg PO DAILY #30 tablet 06/24/18 07/13/20 Rx Potassium Chloride [Klor-Con 8] 8 meq PO DAILY #30 tablet 06/24/18 07/13/20 Rx Simvastatin [Zocor TAB] 20 mg PO QHS #30 tablet 06/24/18 07/13/20 Rx NIFEdipine XL [Procardia Xl] 60 mg PO QDAY #30 tablet 11/08/19 07/13/20 Rx carvediloL [Coreg] 25 mg PO BID #60 tablet 11/08/19 07/13/20 Rx lisinopriL [Zestril TAB] 40 mg PO QDAY #30 tablet 11/08/19 07/13/20 Rx Allergies/Adverse Reactions: Allergies Allergy/AdvReac Type Severity Reaction Status Date / Time No Known Allergies Allergy Verified 11/08/19 10:29 ED Review of Systems ROS: Stated complaint: CANT SEE Other details as noted in HPI Constitutional: denies: chills, fever Eyes: denies: eye pain, eye discharge, vision change ENT: denies: ear pain, throat pain Respiratory: denies: cough, shortness of breath, wheezing Cardiovascular: denies: chest pain, palpitations Endocrine: no symptoms reported Gastrointestinal: denies: abdominal pain, nausea, diarrhea Genitourinary: denies: urgency, dysuria Musculoskeletal: denies: back pain, joint swelling, arthralgia Skin: denies: rash, lesions Neurological: as per HPI, weakness. denies: headache Psychiatric: denies: anxiety, depression Hematological/Lymphatic: denies: easy bleeding, easy bruising ED Past Medical Hx - Past Medical History Previous Medical History?: Yes Hx Hypertension: Yes Hx Congestive Heart Failure: Yes Hx Diabetes: Yes Hx Deep Vein Thrombosis: No Hx Asthma: Yes Hx COPD: Yes Additional medical history: sleep apnea,gout,elevated cholesterol - Surgical History Past Surgical History?: Yes Additional Surgical History: Clip to RLE vein - Social History Smoking Status: Current Every Day Smoker Substance Use Type: Alcohol, Prescribed - Medications Home Medications: Home Medications Medication Instructions Recorded Confirmed Last Taken Type Gabapentin 300 mg PO TID 06/22/18 07/13/20 Unknown History allopurinoL [Zyloprim] 300 mg PO DAILY 06/22/18 07/13/20 07/13/20 History Aspirin 325 mg PO QDAY #30 tablet 06/24/18 07/13/20 Unknown Rx Furosemide [Lasix TAB] 40 mg PO DAILY #30 tablet 06/24/18 07/13/20 07/13/20 Rx Potassium Chloride [Klor-Con 8] 8 meq PO DAILY #30 tablet 06/24/18 07/13/20 07/13/20 Rx Simvastatin [Zocor TAB] 20 mg PO QHS #30 tablet 06/24/18 07/13/20 07/13/20 Rx NIFEdipine XL [Procardia Xl] 60 mg PO QDAY #30 tablet 11/08/19 07/13/20 07/13/20 Rx carvediloL [Coreg] 25 mg PO BID #60 tablet 11/08/19 07/13/20 07/13/20 Rx lisinopriL [Zestril TAB] 40 mg PO QDAY #30 tablet 11/08/19 07/13/20 07/13/20 Rx Dextromethorphan HBr [Robafen 15 mg PO Q6H PRN 07/13/20 07/13/20 Unknown History Cough] Ibuprofen [Motrin Ib] 200 mg PO Q6H PRN 07/13/20 07/13/20 Unknown History Ipratropium/Albuter (Nf) 2 puff IH QID 07/13/20 07/13/20 Unknown History [Combivent (Nf)] Labetalol HCl [Labetalol 300mg TAB] 300 mg PO TID 07/13/20 07/13/20 02/01/20 History Phenylephrine/Dm/Acetaminop/GG 20 ml PO Q6H PRN 07/13/20 07/13/20 07/12/20 History [Mucinex Vbbj-Qje-Hbgwfztzns Lq] Sitagliptin Phosphate [Januvia] 100 mg PO QDAY 07/13/20 07/13/20 07/13/20 History ED Neuro Physical Exam - General Limitations: No Limitations General appearance: alert, in no apparent distress Suspected Stroke: Yes - Head Head exam: Present: atraumatic - Neurological Exam Neurological exam: Present: alert - NIHSS Assessment Interval: Baseline 1a. Level of Consciousness: alert/keenly responsive 1b. LOC Questions: answers both correctly 1c. LOC Commands: performs tasks correctly 2. Best Gaze: partial gaze palsy 3. Visual: no visual loss 4. Facial Palsy: normal symmetrical movement 5b. Motor Arm Right: no drift 5a. Motor Arm Left: no drift 6a. Motor Leg Left: drift 6b. Motor Leg Right: no drift 7. Limb Ataxia: absent 8. Sensory: mild/moderate sensory loss 9. Best Language: no aphasia 10. Dysarthria: normal 11. Extinction/Inattention: no abnormality Total Score: 3 Stroke Severity: Minor Stroke ED Course Vital Signs 07/13/20 07/13/20 07/13/20 12:28 12:45 12:48 Temperature 97.6 F Pulse Rate 98 H 86 Respiratory 18 18 18 Rate Blood Pressure 209/131 Blood Pressure 193/113 [Left] O2 Sat by Pulse 98 98 100 Oximetry 07/13/20 07/13/20 07/13/20 12:49 13:05 13:15 Temperature Pulse Rate 86 75 Respiratory 19 Rate Blood Pressure 193/113 172/100 Blood Pressure [Left] O2 Sat by Pulse 98 98 Oximetry 07/13/20 07/13/20 07/13/20 13:30 13:45 14:00 Temperature Pulse Rate 76 72 71 Respiratory 21 20 11 L Rate Blood Pressure 179/107 179/107 186/110 Blood Pressure [Left] O2 Sat by Pulse 98 99 98 Oximetry - Reevaluation(s) Reevaluation #1: [facility] Tele[facility]urology Consult Services Stat Consult Date of Service: 07/13/2020 13:09:12 Impression: Rule Out Acute Ischemic Stroke r/o pontine stroke Comments/Sign-Out: Patient with significant cardiovascular risk factors presents with left HAZEL. ?pontine stroke. The hyperdeviation and impaired adduction are concerning for posterior circulation stroke but they are chronic on further history from ER MD. Will need MRI brain imaging as well as MRA head/neck. LKW >24 hrs hence not a candidate for intervention. 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 Recommendations: Antiplatelet Therapy Imaging Studies: MRI Head MRA Head and Neck Without Contrast When Available - Stroke Protocol Echocardiogram - Transthoracic Echocardiogram Therapies: Physical Therapy, Occupational Therapy, Speech Therapy Assessment When Applicable Disposition: Neurology Follow Up Recommended Sign Out: Discussed with Emergency Department Provider Chief Complaint: unable to see since yesterday History of Present Illness: Patient is a 54 year old Male. Patient with history of diabetes, hypertension, hyperlipidemia, Afib, CHF, CAD, PVD, former tobacco user who presents after experiencing left sided visual loss and left sided weakness. He had trouble walking. Unable to look to the right with his left eye. It is deviated out and upward. He has double vision. Per ER physician the visual changes are chronic and he had a thalamic infarct in October and was advised not to drive. LKW: Tuesday evening On exam, has nystagmus with right sided gaze as well as vertical gaze, hyperdeviation and elevation of the left eye. Left eye does not cross the midline, impaired conv ergence, pupils symmetrical. no significant ptosis appreciated. Past Medical History: Hypertension Diabetes Mellitus Hyperlipidemia Atrial Fibrillation Coronary Artery Disease Stroke Anticoagulant use: No Antiplatelet use: aspirin Examination: BP(186/110), Pulse(71), Blood Glucose(200) 1A: Level of Consciousness - Alert; keenly responsive + 0 1B: Ask Month and Age - Both Questions Right + 0 1C: Blink Eyes & Squeeze Hands - Performs Both Tasks + 0 2: Test Horizontal Extraocular Movements - Partial Gaze Palsy: Corrects with Oculocephalic Reflex + 1 3: Test Visual Ramirez - No Visual Loss + 0 4: Test Facial Palsy (Use Grimace if Obtunded) - Normal symmetry + 0 5A: Test Left Arm Motor Drift - No Drift for 10 Seconds + 0 5B: Test Right Arm Motor Drift - No Drift for 10 Seconds + 0 6A: Test Left Leg Motor Drift - Drift, but doesn't hit bed + 1 6B: Test Right Leg Motor Drift - No Drift for 5 Seconds + 0 7: Test Limb Ataxia (FNF/Heel-[place]) - No Ataxia + 0 8: Test Sensation - Mild-Moderate Loss: Less Sharp/More Dull + 1 9: Test Language/Aphasia - Normal; No aphasia + 0 10: Test Dysarthria - Normal + 0 11: Test Extinction/Inattention - No abnormality + 0 NIHSS Score: 3 Patient/Family was informed the Neurology Consult would happen via [facility] co nsult by way of interactive audio and video telecommunications and consented to receiving care in this manner. Due to the immediate potential for life-threatening deterioration due to underlying acute neurologic illness, I spent 20 minutes providing critical care. This time includes time for face to face visit via telemedicine, review of medical records, imaging studies and discussion of findings with providers, the patient and/or family. Dr Rocio Miller [facility] Case [id number] 14:38 - Lab Data Result diagrams: 07/13/20 13:17 07/13/20 13:17 Lab Results 07/13/20 07/13/20 07/13/20 Range/Units 12:46 13:17 13:17 WBC 9.0 (4.5-11.0) K/mm3 RBC 5.09 H (3.65-5.03) M/mm3 Hgb 15.9 H (11.8-15.2) gm/dl Hct 46.5 H (35.5-45.6) % MCV 91 (84-94) fl MCH 31 (28-32) pg MCHC 34 (32-34) % RDW 13.8 (13.2-15.2) % Plt Count 211 (140-440) K/mm3 Lymph % (Auto) 18.8 (13.4-35.0) % [place] % (Auto) 7.0 (0.0-7.3) % Eos % (Auto) 1.0 (0.0-4.3) % Baso % (Auto) 0.5 (0.0-1.8) % Lymph # (Auto) 1.7 (1.2-5.4) K/mm3 [place] # (Auto) 0.6 (0.0-0.8) K/mm3 Eos # (Auto) 0.1 (0.0-0.4) K/mm3 Baso # (Auto) 0.0 (0.0-0.1) K/mm3 Seg Neutrophils % 72.7 H (40.0-70.0) % Seg Neutrophils # 6.6 (1.8-7.7) K/mm3 PT 12.5 (12.2-14.9) Sec. INR 0.92 (0.87-1.13) APTT 25.2 (24.2-36.6) Sec. Thrombin Time (15.1-19.6) Sec. Sodium (137-145) mmol/L Potassium (3.6-5.0) mmol/L Chloride (98-107) mmol/L Carbon Dioxide (22-30) mmol/L Anion Gap mmol/L BUN (9-20) mg/dL Creatinine (0.8-1.3) mg/dL Estimated GFR ml/min BUN/Creatinine Ratio % Glucose (75-100) mg/dL POC Glucose 200 H (70-105) mg/dL Calcium (8.4-10.2) mg/dL Magnesium (1.7-2.3) mg/dL Total Bilirubin (0.1-1.2) mg/dL Direct Bilirubin (0-0.2) mg/dL AST (5-40) units/L ALT (7-56) units/L Alkaline Phosphatase (35-129) units/L Troponin T (0.00-0.029) ng/mL NT-Pro-B Natriuret Pep (0-900) pg/mL Total Protein (6.3-8.2) g/dL Albumin (3.9-5) g/dL Albumin/Globulin Ratio % Triglycerides (2-149) mg/dL Cholesterol (50-199) mg/dL LDL Cholesterol Direct (50-130) mg/dL HDL Cholesterol (40-59) mg/dL Cholesterol/HDL Ratio % 10/25/20 10/25/20 Range/Units 13:17 13:17 WBC (4.5-11.0) K/mm3 RBC (3.65-5.03) M/mm3 Hgb (11.8-15.2) gm/dl Hct (35.5-45.6) % MCV (84-94) fl MCH (28-32) pg MCHC (32-34) % RDW (13.2-15.2) % Plt Count (140-440) K/mm3 Lymph % (Auto) (13.4-35.0) % [place] % (Auto) (0.0-7.3) % Eos % (Auto) (0.0-4.3) % Baso % (Auto) (0.0-1.8) % Lymph # (Auto) (1.2-5.4) K/mm3 [place] # (Auto) (0.0-0.8) K/mm3 Eos # (Auto) (0.0-0.4) K/mm3 Baso # (Auto) (0.0-0.1) K/mm3 Seg Neutrophils % (40.0-70.0) % Seg Neutrophils # (1.8-7.7) K/mm3 PT (12.2-14.9) Sec. INR (0.87-1.13) APTT (24.2-36.6) Sec. Thrombin Time 17.5 (15.1-19.6) Sec. Sodium 140 (137-145) mmol/L Potassium 3.8 (3.6-5.0) mmol/L Chloride 102.1 (98-107) mmol/L Carbon Dioxide 29 (22-30) mmol/L Anion Gap 13 mmol/L BUN 11 (9-20) mg/dL Creatinine 0.8 (0.8-1.3) mg/dL Estimated GFR > 60 ml/min BUN/Creatinine Ratio 14 % Glucose 223 H (75-100) mg/dL POC Glucose (70-105) mg/dL Calcium 9.0 (8.4-10.2) mg/dL Magnesium 2.20 (1.7-2.3) mg/dL Total Bilirubin 0.40 (0.1-1.2) mg/dL Direct Bilirubin < 0.2 (0-0.2) mg/dL AST 25 (5-40) units/L ALT 27 (7-56) units/L Alkaline Phosphatase 99 (35-129) units/L Troponin T 0.065 H (0.00-0.029) ng/mL NT-Pro-B Natriuret Pep 189.6 (0-900) pg/mL Total Protein 6.8 (6.3-8.2) g/dL Albumin 3.6 L (3.9-5) g/dL Albumin/Globulin Ratio 1.1 % Triglycerides 114 (2-149) mg/dL Cholesterol 287 H (50-199) mg/dL LDL Cholesterol Direct 211 H (50-130) mg/dL HDL Cholesterol 70 H (40-59) mg/dL Cholesterol/HDL Ratio 4.10 % Critical care attestation.: If time is entered above; I have spent that time in minutes in the direct care of this critically ill patient, excluding procedure time. ED Disposition Clinical Impression: Atrial fibrillation, Hyperlipidemia, Stroke (cerebrum) Disposition: DC-09 OP ADMIT IP TO THIS HOSP Is pt being admited?: Yes Does the pt Need Aspirin: Yes Instructions: Hypertension (ED) Referrals: SHARA LEWIS MD [Primary Care Provider] - 3-5 Days Time of Disposition: 14:39
[2020-07-13] MEDS: ASPIRIN 325 MG TAB PO SCH (14:55)
[2020-07-13] MEDS ORDERED: HYDROmorphone 1 MG/1 ML INJ IV PRN (15:24)
[2020-07-13] MEDS ORDERED: oxyCODONE /ACETAMINOPHEN 5-325MG TAB PO PRN (15:24)
[2020-07-13] MEDS ORDERED: ACETAMINOPHEN 325 MG TAB PO PRN (15:24)
[2020-07-13] MEDS ORDERED: ONDANSETRON 4 MG/2 ML INJ IV PRN (15:24)
[2020-07-13] MEDS ORDERED: NIFEdipine XL 60 MG TAB PO SCH (15:30)
[2020-07-13] MEDS ORDERED: NON-FORMULARY EACH (Sitagliptin Phosphate [Januvia] 100 MG) PO SCH (15:30)
--- NOTE | 2020-07-13 15:36 | History and Physical Report ---
History of Present Illness Date of examination: 07/13/20 Date of admission: 07/13/20 14:49 Chief complaint: Left-sided weakness and high blood pressure History of present illness: 54-year-old male comes in for increased left -sided weakness since yesterday. Patient is a poor historian but apparently had a stroke with right -sided weakness couple of years ago.Patient says his blood glucose levels have been running high. Patient apparently recovered completely from his stroke and now has new onset right -sided weakness. No loss of consciousness. No palpitations or shortness of breath. No exposure to coronavirus. Last admission from 2018 was reviewed where he was treated for costochondritis diabetes and hypertensive emergency. At that time patient was complaining of chronic weakness and numbness on the right side. 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 - Medications Home Medications: Home Medications Medication Instructions Recorded Confirmed Last Taken Type Gabapentin 300 mg PO TID 06/22/18 07/13/20 Unknown History allopurinoL [Zyloprim] 300 mg PO DAILY 06/22/18 07/13/20 07/13/20 History Aspirin 325 mg PO QDAY #30 tablet 06/24/18 07/13/20 Unknown Rx Furosemide [Lasix TAB] 40 mg PO DAILY #30 tablet 06/24/18 07/13/20 07/13/20 Rx Potassium Chloride [Klor-Con 8] 8 meq PO DAILY #30 tablet 06/24/18 07/13/20 07/13/20 Rx Simvastatin [Zocor TAB] 20 mg PO QHS #30 tablet 06/24/18 07/13/20 07/13/20 Rx NIFEdipine XL [Procardia Xl] 60 mg PO QDAY #30 tablet 11/08/19 07/13/20 07/13/20 Rx carvediloL [Coreg] 25 mg PO BID #60 tablet 11/08/19 07/13/20 07/13/20 Rx lisinopriL [Zestril TAB] 40 mg PO QDAY #30 tablet 11/08/19 07/13/20 07/13/20 Rx Dextromethorphan HBr [Robafen 15 mg PO Q6H PRN 07/13/20 07/13/20 Unknown History Cough] Ibuprofen [Motrin Ib] 200 mg PO Q6H PRN 07/13/20 07/13/20 Unknown History Ipratropium/Albuter (Nf) 2 puff IH QID 07/13/20 07/13/20 Unknown History [Combivent (Nf)] Labetalol HCl [Labetalol 300mg TAB] 300 mg PO TID 07/13/20 07/13/20 02/01/20 History Phenylephrine/Dm/Acetaminop/GG 20 ml PO Q6H PRN 07/13/20 07/13/20 07/12/20 History [Mucinex Pzry-Qqo-Mfdypmtqnz Lq] Sitagliptin Phosphate [Januvia] 100 mg PO QDAY 07/13/20 07/13/20 07/13/20 History Review of Systems ROS: Stated complaint: CANT SEE Other details as noted in HPI Constitutional: denies: chills, fever Eyes: denies: eye pain, eye discharge, vision change ENT: denies: ear pain, throat pain Respiratory: denies: cough, shortness of breath, wheezing Cardiovascular: denies: chest pain, palpitations Endocrine: no symptoms reported Gastrointestinal: denies: abdominal pain, nausea, diarrhea Genitourinary: denies: urgency, dysuria Musculoskeletal: denies: back pain, joint swelling, arthralgia Skin: denies: rash, lesions Neurological: as per HPI, weakness. denies: headache Psychiatric: denies: anxiety, depression Hematological/Lymphatic: denies: easy bleeding, easy bruising Medications and Allergies Allergies Allergy/AdvReac Type Severity Reaction Status Date / Time No Known Allergies Allergy Verified 11/08/19 10:29 Home Medications Medication Instructions Recorded Confirmed Last Taken Type Gabapentin 300 mg PO TID 06/22/18 07/13/20 Unknown History allopurinoL [Zyloprim] 300 mg PO DAILY 06/22/18 07/13/20 07/13/20 History Aspirin 325 mg PO QDAY #30 tablet 06/24/18 07/13/20 Unknown Rx Furosemide [Lasix TAB] 40 mg PO DAILY #30 tablet 06/24/18 07/13/20 07/13/20 Rx Potassium Chloride [Klor-Con 8] 8 meq PO DAILY #30 tablet 06/24/18 07/13/20 07/13/20 Rx Simvastatin [Zocor TAB] 20 mg PO QHS #30 tablet 06/24/18 07/13/20 07/13/20 Rx NIFEdipine XL [Procardia Xl] 60 mg PO QDAY #30 tablet 11/08/19 07/13/20 07/13/20 Rx carvediloL [Coreg] 25 mg PO BID #60 tablet 11/08/19 07/13/20 07/13/20 Rx lisinopriL [Zestril TAB] 40 mg PO QDAY #30 tablet 11/08/19 07/13/20 07/13/20 Rx Dextromethorphan HBr [Robafen 15 mg PO Q6H PRN 07/13/20 07/13/20 Unknown History Cough] Ibuprofen [Motrin Ib] 200 mg PO Q6H PRN 07/13/20 07/13/20 Unknown History Ipratropium/Albuter (Nf) 2 puff IH QID 07/13/20 07/13/20 Unknown History [Combivent (Nf)] Labetalol HCl [Labetalol 300mg TAB] 300 mg PO TID 07/13/20 07/13/20 02/01/20 History Phenylephrine/Dm/Acetaminop/GG 20 ml PO Q6H PRN 07/13/20 07/13/20 07/12/20 History [Mucinex Trkm-Mzq-Ndhyeeurwb Lq] Sitagliptin Phosphate [Januvia] 100 mg PO QDAY 07/13/20 07/13/20 07/13/20 History Active Meds: Active Medications Aspirin (Aspirin) 325 mg PO QDAY SIMONA Last Admin: 07/13/20 14:55 Dose: 325 mg Documented by: Exam - Constitutional Vitals: Temp Pulse Resp BP Pulse Ox 97.6 F 77 20 193/116 98 07/13/20 12:28 07/13/20 14:55 07/13/20 14:45 07/13/20 14:55 07/13/20 14:45 General appearance: Present: no acute distress, well-nourished - EENT Eyes: Present: PERRL ENT: hearing intact, clear oral mucosa - Neck Neck: Present: supple, normal ROM - Respiratory Respiratory effort: normal Respiratory: bilateral: CTA - Cardiovascular Heart rate: 78 Rhythm: regular Heart Sounds: Present: S1 & S2. Absent: rub, click - Extremities Extremities: pulses symmetrical, No edema Peripheral Pulses: within normal limits - Abdominal General gastrointestinal: Present: soft, non-tender, non-distended, normal bowel sounds Male genitourinary: Present: normal - Integumentary Integumentary: Present: clear, warm, dry - Musculoskeletal Musculoskeletal: right sided weakness (4/5 power) - Psychiatric Psychiatric: appropriate mood/affect, intact judgment & insight, cooperative - Neurologic Neurologic: CNII-XII intact, moves all extremities - Allied Health Allied health notes reviewed: nursing, case management HEART Score - HEART Score History: Moderately suspicious Age: 45-65 Risk factors: > 3 risk factors or hx of atherosclerotic disease Troponin: Troponin T 0.065 ng/mL (0.00-0.029) H 07/13/20 13:17 Troponin: < normal limit - Critical Actions Critical Actions: 0-3 pts:0.9-1.7%risk of adverse cardiac event.Candidate for discharge Results - Labs CBC & Chem 7: 07/14/20 05:55 07/14/20 05:55 Labs: Laboratory Last Values WBC 9.0 K/mm3 (4.5-11.0) 07/13/20 13:17 RBC 5.09 M/mm3 (3.65-5.03) H 07/13/20 13:17 Hgb 15.9 gm/dl (11.8-15.2) H 07/13/20 13:17 Hct 46.5 % (35.5-45.6) H 07/13/20 13:17 MCV 91 fl (84-94) 07/13/20 13:17 MCH 31 pg (28-32) 07/13/20 13:17 MCHC 34 % (32-34) 07/13/20 13:17 RDW 13.8 % (13.2-15.2) 07/13/20 13:17 Plt Count 211 K/mm3 (140-440) 07/13/20 13:17 Lymph % (Auto) 18.8 % (13.4-35.0) 07/13/20 13:17 Eddy % (Auto) 7.0 % (0.0-7.3) 07/13/20 13:17 Eos % (Auto) 1.0 % (0.0-4.3) 07/13/20 13:17 Baso % (Auto) 0.5 % (0.0-1.8) 07/13/20 13:17 Lymph # (Auto) 1.7 K/mm3 (1.2-5.4) 07/13/20 13:17 Eddy # (Auto) 0.6 K/mm3 (0.0-0.8) 07/13/20 13:17 Eos # (Auto) 0.1 K/mm3 (0.0-0.4) 07/13/20 13:17 Baso # (Auto) 0.0 K/mm3 (0.0-0.1) 07/13/20 13:17 Seg Neutrophils % 72.7 % (40.0-70.0) H 07/13/20 13:17 Seg Neutrophils # 6.6 K/mm3 (1.8-7.7) 07/13/20 13:17 PT 12.5 Sec. (12.2-14.9) 07/13/20 13:17 INR 0.92 (0.87-1.13) 07/13/20 13:17 APTT 25.2 Sec. (24.2-36.6) 07/13/20 13:17 Thrombin Time 17.5 Sec. (15.1-19.6) 07/13/20 13:17 Sodium 140 mmol/L (137-145) 07/13/20 13:17 Potassium 3.8 mmol/L (3.6-5.0) 07/13/20 13:17 Chloride 102.1 mmol/L (98-107) 07/13/20 13:17 Carbon Dioxide 29 mmol/L (22-30) 07/13/20 13:17 Anion Gap 13 mmol/L 07/13/20 13:17 BUN 11 mg/dL (9-20) 07/13/20 13:17 Creatinine 0.8 mg/dL (0.8-1.3) 07/13/20 13:17 Estimated GFR > 60 ml/min 07/13/20 13:17 BUN/Creatinine Ratio 14 % 07/13/20 13:17 Glucose 223 mg/dL (75-100) H 07/13/20 13:17 POC Glucose 200 mg/dL (70-105) H 07/13/20 12:46 Calcium 9.0 mg/dL (8.4-10.2) 07/13/20 13:17 Magnesium 2.20 mg/dL (1.7-2.3) 07/13/20 13:17 Total Bilirubin 0.40 mg/dL (0.1-1.2) 07/13/20 13:17 Direct Bilirubin < 0.2 mg/dL (0-0.2) 07/13/20 13:17 AST 25 units/L (5-40) 07/13/20 13:17 ALT 27 units/L (7-56) 07/13/20 13:17 Alkaline Phosphatase 99 units/L (35-129) 07/13/20 13:17 Troponin T 0.065 ng/mL (0.00-0.029) H 07/13/20 13:17 NT-Pro-B Natriuret Pep 189.6 pg/mL (0-900) 07/13/20 13:17 Total Protein 6.8 g/dL (6.3-8.2) 07/13/20 13:17 Albumin 3.6 g/dL (3.9-5) L 07/13/20 13:17 Albumin/Globulin Ratio 1.1 % 07/13/20 13:17 Triglycerides 114 mg/dL (2-149) 07/13/20 13:17 Cholesterol 287 mg/dL (50-199) H 07/13/20 13:17 LDL Cholesterol Direct 211 mg/dL (50-130) H 07/13/20 13:17 HDL Cholesterol 70 mg/dL (40-59) H 07/13/20 13:17 Cholesterol/HDL Ratio 4.10 % 07/13/20 13:17 Short CBC 07/13/20 07/14/20 Range/Units 13:17 05:55 WBC 9.0 10.0 (4.5-11.0) K/mm3 Hgb 15.9 H 14.7 (11.8-15.2) gm/dl Hct 46.5 H 43.3 (35.5-45.6) % Plt Count 211 192 (140-440) K/mm3 BMP 07/13/20 07/14/20 13:17 05:55 Sodium 140 137 Potassium 3.8 3.7 Chloride 102.1 99.0 Carbon Dioxide 29 25 BUN 11 13 Creatinine 0.8 1.0 Glucose 223 H 285 H Calcium 9.0 8.6 Cardiac Enzymes 07/13/20 Range/Units 13:17 Troponin T 0.065 H (0.00-0.029) ng/mL Liver Function 07/13/20 07/14/20 Range/Units 13:17 05:55 Total Bilirubin 0.40 0.20 (0.1-1.2) mg/dL Direct Bilirubin < 0.2 (0-0.2) mg/dL AST 25 19 (5-40) units/L ALT 27 26 (7-56) units/L Alkaline Phosphatase 99 102 (35-129) units/L Albumin 3.6 L 3.3 L (3.9-5) g/dL - Imaging and Cardiology EKG: report reviewed (Sinus rhythm LVH by voltage criteria) Muller/IV: IV Catheter Type [Right INT / Saline Lock Antecubital] Assessment and Plan Advance Directives: Yes (Full code) VTE prophylaxis?: Chemical Plan of care discussed with patient/family: Yes - Patient Problems (1) Hypertensive emergency Current Visit: No Status: Acute Plan to address problem: Patient initiated on IV labetalol 10 mg weekly as needed and patient also initiated on his regular antihypertensive. Patient is noncompliant. Patient counseled about compliance. (2) Acute CVA (cerebrovascular accident) Current Visit: Yes Status: Acute Plan to address problem: Telemetry neurology consult appreciated Patient not in the window for TPA MRI/MRA suggested by telemetry neurology which is going to be done tomorrow In-house neurology consult Aspirin and Plavix added (3) HLD (hyperlipidemia) Current Visit: Yes Status: Chronic Qualifiers: Hyperlipidemia type: mixed hyperlipidemia Qualified Code(s): E78.2 - Mixed hyperlipidemia Plan to address problem: Continue statins (4) Peripheral neuropathy Current Visit: Yes Status: Chronic Qualifiers: Peripheral neuropathy type: polyneuropathy, unspecified Qualified Code(s): G62.9 - Polyneuropathy, unspecified Plan to address problem: Continue gabapentin (5) Gout Current Visit: Yes Status: Inactive Plan to address problem: Continue allopurinol (6) CHF (congestive heart failure) Current Visit: Yes Status: Chronic Qualifiers: Heart failure type: combined systolic and diastolic Heart failure chronicity: chronic Qualified Code(s): I50.42 - Chronic combined systolic (congestive) and diastolic (congestive) heart failure Plan to address problem: Continue Lasix orally (7) DVT prophylaxis Current Visit: No Status: Acute Plan to address problem: On heparin and GI prophylaxis
[2020-07-13] MEDS ORDERED: ASPIRIN 325 MG TAB PO SCH (16:00)
[2020-07-13] MEDS ORDERED: POTASSIUM CHLORIDE ER 8 MEQ TAB PO SCH (16:00)
[2020-07-13] MEDS ORDERED: LISINOPRIL 20 MG TAB ONE (16:26)
[2020-07-13] MEDS ORDERED: POTASSIUM CHLORIDE ER 20 MEQ TAB PO ONE (16:26)
[2020-07-13] MEDS ORDERED: carvediloL 25 MG TAB ONE (16:27)
[2020-07-13] MEDS: LISINOPRIL 40 MG TAB PO SCH (16:30)
[2020-07-13] MEDS: POTASSIUM CHLORIDE ER 20 MEQ TAB PO SCH (16:31)
[2020-07-13] MEDS: carvediloL 25 MG TAB PO SCH ×2 (16:31→21:51)
[2020-07-13] MEDS ORDERED: FAMOTIDINE 20 MG TAB ONE (16:34)
[2020-07-13] MEDS ORDERED: FUROSEMIDE 20 MG TAB ONE ×2 (16:35→16:41)
[2020-07-13] MEDS: FAMOTIDINE 20 MG TAB PO SCH ×2 (16:40→21:51)
[2020-07-13] MEDS: FUROSEMIDE 40 MG TAB PO SCH (16:43)
[2020-07-13] MEDS: INSULIN LISPRO 100 UNIT/ML VIAL 3 mL SUB-Q SCH ×2 (16:46→21:52)
[2020-07-13] MEDS: IPRATROPIUM/ALBUTEROL SULFATE 3 ML AMPUL.NEB IH SCH ×2 (16:47→20:23)
[2020-07-13] MEDS: LINAGLIPTIN 5 MG TAB PO SCH (16:51)
[2020-07-13] MEDS: NIFEdipine XL 90 MG TAB PO SCH (16:51)
[2020-07-13 17:13] LABS: Amphetamine Screen,Urine Negative; Benzodiazepines Screen,Urine Negative; Cannabinoid Screen,Urine Negative; Cocaine Screen,Urine Negative; Methadone Screen,Urine Negative; Opiate Screen,Urine Negative
[2020-07-13] MEDS ORDERED: ALBUTER IH SCH (18:00)
[2020-07-13] MEDS ORDERED: IPRATROPIUM IH SCH (18:00)
[2020-07-13] MEDS: PRAVASTATIN 40 MG TAB PO SCH (21:51)
[2020-07-13] MEDS: GABAPENTIN 300 MG CAP PO SCH (21:52)
[2020-07-13] MEDS ORDERED: NON-FORMULARY EACH (Simvastatin 20 MG) PO SCH (22:00)
[2020-07-14] MEDS: FUROSEMIDE 40 MG TAB PO SCH (05:24)
[2020-07-14 06:16] LABS: Basophils # (Auto) 0.1 K/mm3 (0.0-0.1); Eosinophils # (Auto) 0.1 K/mm3 (0.0-0.4); Eosinophils % (Auto) 1.3 % (0.0-4.3); Hematocrit 43.3 % (35.5-45.6); Hemoglobin 14.7 gm/dl (11.8-15.2); Lymphocytes % (Auto) 19.4 % (13.4-35.0); Mean Corpuscular HGB Conc 34 % (32-34); Mean Corpuscular Volume 91 fl (84-94); Monocytes # (Auto) 0.7 K/mm3 (0.0-0.8); Monocytes % (Auto) 7.4 % (0.0-7.3); Platelet Count 192 K/mm3 (140-440); Red Blood Count 4.74 M/mm3 (3.65-5.03); Red Cell Distribution Width 13.5 % (13.2-15.2)
[2020-07-14 06:37] LABS: Alanine Aminotransferase 26 units/L (7-56); Albumin 3.3 g/dL (3.9-5); BUN/Creatinine Ratio 13; Blood Urea Nitrogen 13 mg/dL (9-20); Calcium 8.6 mg/dL (8.4-10.2); Hemolysis Index 5
[2020-07-14] MEDS: LINAGLIPTIN 5 MG TAB PO SCH (09:53)
[2020-07-14] MEDS: GABAPENTIN 300 MG CAP PO SCH ×3 (09:54→21:50)
[2020-07-14] MEDS: FAMOTIDINE 20 MG TAB PO SCH ×2 (09:54→21:50)
[2020-07-14] MEDS: POTASSIUM CHLORIDE ER 20 MEQ TAB PO SCH (09:54)
[2020-07-14] MEDS: NIFEdipine XL 90 MG TAB PO SCH (09:54)
[2020-07-14] MEDS: LISINOPRIL 40 MG TAB PO SCH (09:54)
[2020-07-14] MEDS: carvediloL 25 MG TAB PO SCH ×2 (09:54→21:50)
[2020-07-14] MEDS: ASPIRIN 325 MG TAB PO SCH (09:54)
[2020-07-14] MEDS: HEPARIN 5,000 UNIT/1 ML VIAL SUB-Q SCH ×2 (09:56→21:50)
[2020-07-14] MEDS: allopurinoL 300 MG TAB PO SCH ×2 (09:57→10:36)
[2020-07-14] MEDS: CLOPIDOGREL 75 MG TAB PO SCH (10:00)
[2020-07-14] MEDS: IPRATROPIUM/ALBUTEROL SULFATE 3 ML AMPUL.NEB IH SCH ×2 (10:27→22:12)
[2020-07-14] MEDS: INSULIN LISPRO 100 UNIT/ML VIAL 3 mL SUB-Q SCH ×4 (10:27→21:51)
[2020-07-14] MEDS ORDERED: FLU VACC QUAD 2020-2021 (6 months +)/PF 60 0.5 ML SYRINGE IM ONE (12:00)
[2020-07-14] MEDS ORDERED: PNEUMOCOCCAL 23 Valent 0.5 ML VIAL IM ONE (12:00)
[2020-07-14] MEDS ORDERED: LORazepam 2 MG/ML VIAL IV ONE (14:45)
--- NOTE | 2020-07-14 16:16 | Consultation ---
History of Present Illness Consult date: 07/14/20 Reason for Consult: left-sided weakness Chief complaint: left eye unable to see since Tuesday and left side weakness History of present illness: This is a comprehensive neurological consultation on Mr. Jacob Trujillo who is a very pleasant 54-year-old gentleman admitted with the symptoms of unable to see in the left eye since Tuesday. He reported that he has 40% vision in his left eye to begin with but now he cannot see clearly. He denied any left-sided weakness although he does say that he has whole body weakness. He denied any headache, nausea, vomiting, chest pain, heart palpitations. He reported that he has history of some heart issues and therefore he has been taking aspirin and Plavix. He denied any missing the dose of these medications. He had CT scan of the brain done in the emergency room which revealed and as reported old right occipital lobe stroke and cerebellar stroke. There was no hemorrhage. Primary team has ordered the MRI of the brain and they are still pending. He has to put the eye patch on the left side due to double vision blurred vision, and unable to see. Past History Past Medical History: diabetes, heart failure, hypertension Social history: smoking (ex-smoker) Family history: no significant family history Medications and Allergies Allergies Allergy/AdvReac Type Severity Reaction Status Date / Time No Known Allergies Allergy Verified 11/08/19 10:29 Home Medications Medication Instructions Recorded Confirmed Last Taken Type Gabapentin 300 mg PO TID 06/22/18 07/13/20 Unknown History allopurinoL [Zyloprim] 300 mg PO DAILY 06/22/18 07/13/20 07/13/20 History Aspirin 325 mg PO QDAY #30 tablet 06/24/18 07/13/20 Unknown Rx Furosemide [Lasix TAB] 40 mg PO DAILY #30 tablet 06/24/18 07/13/20 07/13/20 Rx Potassium Chloride [Klor-Con 8] 8 meq PO DAILY #30 tablet 06/24/18 07/13/20 Rx Simvastatin [Zocor TAB] 20 mg PO QHS #30 tablet 06/24/18 07/13/20 07/13/20 Rx NIFEdipine XL [Procardia Xl] 60 mg PO QDAY #30 tablet 11/08/19 07/13/20 07/13/20 Rx carvediloL [Coreg] 25 mg PO BID #60 tablet 11/08/19 07/13/20 07/13/20 Rx lisinopriL [Zestril TAB] 40 mg PO QDAY #30 tablet 11/08/19 07/13/20 07/13/20 Rx Dextromethorphan HBr [Robafen 15 mg PO Q6H PRN 07/13/20 07/13/20 Unknown History Cough] Ibuprofen [Motrin Ib] 200 mg PO Q6H PRN 07/13/20 07/13/20 Unknown History Ipratropium/Albuter (Nf) 2 puff IH QID 07/13/20 07/13/20 Unknown History [Combivent (Nf)] Labetalol HCl [Labetalol 300mg TAB] 300 mg PO TID 07/13/20 07/13/20 02/01/20 History Phenylephrine/Dm/Acetaminop/GG 20 ml PO Q6H PRN 07/13/20 07/13/20 07/12/20 History [Mucinex Rqaw-Nkj-Mhhvgnhfrk Lq] Sitagliptin Phosphate [Januvia] 100 mg PO QDAY 07/13/20 07/13/20 07/13/20 History Active Meds: Active Medications Acetaminophen (Tylenol) 650 mg PO Q4H PRN PRN Reason: Pain MILD(1-3)/Fever >100.5/ROMANO Albuterol/Ipratropium (Duoneb *Not For Prn Use*) 1 ampul IH BIDRT [facility] Allopurinol (Zyloprim) 300 mg PO DAILY [facility] Last Admin: 07/14/20 10:36 Dose: 300 mg Documented by: Aspirin (Aspirin) 325 mg PO QDAY [facility] Last Admin: 07/14/20 09:54 Dose: 325 mg Documented by: Carvedilol (Coreg) 25 mg PO BID [facility] Last Admin: 07/14/20 09:54 Dose: 25 mg Documented by: Clopidogrel Bisulfate (Plavix) 75 mg PO QDAY [facility] Last Admin: 07/14/20 10:00 Dose: 75 mg Documented by: Famotidine (Pepcid) 20 mg PO BID [facility] Last Admin: 07/14/20 09:54 Dose: 20 mg Documented by: Furosemide (Lasix) 40 mg PO DAILY@0600 [facility] Last Admin: 07/14/20 05:24 Dose: 40 mg Documented by: Gabapentin (Gabapentin) 300 mg PO TID [facility] Last Admin: 07/14/20 14:18 Dose: 300 mg Documented by: Heparin Sodium (Porcine) (Heparin) 5,000 unit SUB-Q Q12HR [facility] Last Admin: 07/14/20 09:56 Dose: 5,000 unit Documented by: Hydromorphone HCl (Dilaudid) 0.5 mg IV Q3H PRN PRN Reason: Pain , Severe (7-10) Insulin Human Isoph/Insulin Regular (Humulin 70/30) 15 unit SUB-Q BIDDIAB [facility] Insulin Human Lispro (Humalog) 0 unit SUB-Q ACHS [facility]; Protocol Last Admin: 07/14/20 12:32 Dose: 6 unit Documented by: Linagliptin (Tradjenta) 5 mg PO QDAY [facility] Last Admin: 07/14/20 09:53 Dose: 5 mg Documented by: Lisinopril (Zestril) 40 mg PO QDAY [facility] Last Admin: 07/14/20 09:54 Dose: 40 mg Documented by: Nifedipine (Procardia Xl) 90 mg PO QDAY [facility] Last Admin: 07/14/20 09:54 Dose: 90 mg Documented by: Ondansetron HCl (Zofran) 4 mg IV Q8H PRN PRN Reason: Nausea And Vomiting Oxycodone/Acetaminophen (Percocet 5/325) 1 tab PO Q6H PRN PRN Reason: Pain, Moderate (4-6) Potassium Chloride (K-Dur) 20 meq PO QDAY [facility] Last Admin: 07/14/20 09:54 Dose: 20 meq Documented by: Pravastatin Sodium (Pravachol) 40 mg PO QHS [facility] Last Admin: 07/13/20 21:51 Dose: 40 mg Documented by: Sodium Chloride (Sodium Chloride Flush Syringe 10 Ml) 10 ml IV BID [facility] Last Admin: 07/14/20 09:57 Dose: 10 ml Documented by: Sodium Chloride (Sodium Chloride Flush Syringe 10 Ml) 10 ml IV PRN PRN PRN Reason: LINE FLUSH Review of Systems Eyes: left: blurred vision, diplopia, loss of peripheral vision Neurological: double vision (left eye), loss of vision (left eye) Physical Examination - Vital Signs Vital Signs: Vital Signs Temp Pulse Resp BP Pulse Ox 97.6 F 98 H 18 209/131 98 07/13/20 12:28 07/13/20 12:28 07/13/20 12:28 07/13/20 12:28 07/13/20 12:28 - EENT EENT: Present: other (left eye double vision and decreased vision) - Neurologic Cranial nerve examination: PERRL, V1/V2/V3 grossly intact, face symmetric, tongue midline, other (left eyeright medial rectus weakness, decreased vision to finger counting only) Detailed motor examination: grossly full strength in Detailed sensory examination: intact Posture: other (deferred) Reflex and gait examination: other (deferred) Cerebellar examination: other (deferred) - Level of Consciousness 1a. Level of Consciousness: alert/keenly responsive - LOC Questions 1b. LOC Questions: answers both correctly - LOC Command 1c. LOC Commands: performs tasks correctly - Best Gaze 2. Best Gaze: partial gaze palsy (left eye deviated to left side) - Visual 3. Visual: partial hemianopia (left hemifield) - Facial Palsy 4. Facial Palsy: normal symmetrical movement - Motor Arm 5a. Motor Arm Left: no drift 5b. Motor Arm Right: no drift - Motor Leg 6a. Motor Leg Left: no drift 6b. Motor Leg Right: no drift - Limb Ataxia 7. Limb Ataxia: absent - Sensory 8. Sensory: normal - Best Language 9. Best Language: no aphasia - Dysarthria 10. Dysarthria: normal - Extinction and Inattention 11. Extinction/Inattention: no abnormality - Scoring Total Score: 2 Stroke Severity: Minor Stroke Results - Laboratory Findings CBC and BMP: 07/14/20 05:55 07/14/20 05:55 Abnormal Lab Findings: Abnormal Labs 07/13/20 07/13/20 07/13/20 12:46 13:17 13:17 RBC 5.09 H Hgb 15.9 H Hct 46.5 H [place] % (Auto) Seg Neutrophils % 72.7 H Glucose 223 H POC Glucose 200 H Hemoglobin A1c Troponin T 0.065 H Albumin 3.6 L Cholesterol 287 H LDL Cholesterol Direct 211 H HDL Cholesterol 70 H 07/13/20 07/13/20 07/14/20 17:02 20:55 05:55 RBC Hgb Hct [place] % (Auto) 7.4 H Seg Neutrophils % 70.9 H Glucose POC Glucose 147 H 277 H Hemoglobin A1c Troponin T Albumin Cholesterol LDL Cholesterol Direct HDL Cholesterol 07/14/20 07/14/20 07/14/20 05:55 05:55 07:49 RBC Hgb Hct [place] % (Auto) Seg Neutrophils % Glucose 285 H POC Glucose 230 H Hemoglobin A1c 10.2 H Troponin T Albumin 3.3 L Cholesterol LDL Cholesterol Direct HDL Cholesterol 07/14/20 07/14/20 09:35 11:44 RBC Hgb Hct [place] % (Auto) Seg Neutrophils % Glucose POC Glucose 302 H Hemoglobin A1c Troponin T 0.102 H* D Albumin Cholesterol LDL Cholesterol Direct HDL Cholesterol - Diagnostic Findings Additional findings: CT scan of the brain revealed/as reported: Older right occipital and cerebellar stroke Assessment and Plan - Patient Problems (1) Acute CVA (cerebrovascular accident) Current Visit: Yes Status: Acute Plan to address problem: 1) agree with getting an MRI of brain with and without and MRA of head and neck. 2) 2D echo with a bubble study-if negative may consider SATURNINO. 3) continue aspirin and Plavix for now for 21 days and then consider discontinuing aspirin and continue Plavix at that point if patient does not need any anticoagulation after the full workup. 4) statin for secondary stroke prevention to lower the LDL less than 70. 5) keep systolic blood pressure less than 180/90 mmHg for next 3 days and then lower it to 912300/80 mmHg with the help of medicine 6) please provide him physical therapy, occupational therapy, speech evaluation 7) may need ophthalmology consultation as an outpatient once the workup is completed. 8) education for obesity 9) please provide him secondary stroke prevention education. 10) patient needs follow-up visit with the local neurologist in a couple of weeks upon discharge home 11) DVT prophylaxis while the patient is in the bed. 12) also, please run the blood test for: Sed rate, hemoglobin A1c, TSH, vitamin B12 level, JESUS, FTAantibody. 13) consider blood test for hypercoagulable state if no etiology is found for his stroke. I discussed at length with the patient regarding his condition and possible treatment options. I answered all the questions posed by the patient to his best satisfaction. Patient agreed with the plan. Thank you very much for allowing us in the care of your patient Mr. Trujillo. Please call us if you have any questions Pricilla Deutsch MD Tele-neurologist
--- NOTE | 2020-07-14 17:58 | Vascular Lab Report ---
"DUPLEX DOPPLER ULTRASOUND CAROTID, BILATERAL INDICATION: stroke. FINDINGS: RIGHT CAROTID: Mild plaque Right CCA velocity: 59 cm/sec. Right ICA peak systolic velocity: 2 cm/sec. ICA/CCA PSV Ratio: 1.04. Right Vertebral Artery: Antegrade flow. LEFT CAROTID: Mild plaque Left CCA velocity: 88 cm/sec. Left ICA peak systolic velocity: 92 cm/sec. ICA/CCA PSV Ratio: 1.05. Left Vertebral Artery: Antegrade flow. IMPRESSION: 1. Right Internal Carotid Artery: Less than 50% diameter stenosis. 2. Left Internal Carotid Artery: Less than 50% diameter stenosis. Velocity criteria are extrapolated from diameter data as defined by the Society of Radiologists in Ul trasound Consensus Conference, Radiology 2003; 229;340-346. Degree of Stenosis (%) || ICA PSV (cm/sec) || Plaque estimate (%) || ICA/CCA PSV Ratio Normal <125 None <2.0 <50 <125 <50 <2.0 50-69 125-230 50 2.0-4.0 70 but less than 100 >230 50 >4.0 Near occlusion High, low, or none visible variable Total occlusion None visible; no lumen N/A Signer Name: Surjit Zhu MD Signed: 07/14/2020 5:53 PM Workstation Name: [id number]
[2020-07-14] MEDS: INSULIN NPH/REGULAR 70/30 INJ SUB-Q SCH (18:05)
[2020-07-14] MEDS: NICOTINE 14 MG/24 HR PATCH TD SCH (21:49)
[2020-07-14] MEDS: PRAVASTATIN 40 MG TAB PO SCH (21:50)
[2020-07-15] MEDS ORDERED: FUROSEMIDE 40 MG TAB ONE (05:23)
[2020-07-15] MEDS ORDERED: oxyCODONE /ACETAMINOPHEN 5-325MG TAB ONE (09:06)
[2020-07-15] MEDS ORDERED: LISINOPRIL 40 MG TAB ONE (09:28)
[2020-07-15] MEDS ORDERED: ASPIRIN 325 MG TAB ONE (09:28)
[2020-07-15] MEDS ORDERED: FAMOTIDINE 20 MG TAB ONE (09:28)
[2020-07-15] MEDS ORDERED: allopurinoL 300 MG TAB ONE (09:28)
[2020-07-15] MEDS ORDERED: POTASSIUM CHLORIDE ER 20 MEQ TAB PO ONE (09:28)
[2020-07-15] MEDS ORDERED: carvediloL 25 MG TAB ONE (09:28)
[2020-07-15] MEDS ORDERED: NIFEdipine XL 90 MG TAB PO ONE (09:28)
[2020-07-15] MEDS ORDERED: HEPARIN 5,000 UNIT/1 ML VIAL ONE (09:28)
[2020-07-15] MEDS ORDERED: GABAPENTIN 300 MG CAP ONE ×2 (09:28→14:21)
[2020-07-15] MEDS ORDERED: CLOPIDOGREL 75 MG TAB ONE (09:28)
[2020-07-15] MEDS ORDERED: LINAGLIPTIN 5 MG TAB PO ONE (09:28)
[2020-07-15] MEDS: IPRATROPIUM/ALBUTEROL SULFATE 3 ML AMPUL.NEB IH SCH ×2 (17:44→21:26)
--- NOTE | 2020-07-15 18:10 | Progress Note ---
Assessment and Plan Assessment and plan: (1) Acute CVA (cerebrovascular accident) MRI of brain with and without and MRA of head and neck. 2D echo with a bubble study-if negative may consider SATURNINO. continue aspirin and Plavix for now for 21 days and then consider discontinuing aspirin and continue Plavix at that point if patient does not need any anticoagulation after the full workup per Neuro Statin for secondary stroke prevention to lower the LDL less than 70. keep systolic blood pressure less than 180/90 mmHg for next 3 days and then lower it to 228250/80 mmHg with the help of medicine PT/OT/ST Ophthalmology consultation as an outpatient Check Sed rate, hemoglobin A1c, TSH, vitamin B12 level, JESUS, FTAantibody. Consider blood test for hypercoagulable state if no etiology is found for his stroke. History Interval history: no new issues Hospitalist Physical - Constitutional Vitals: Temp Pulse Resp BP Pulse Ox 98.1 F 75 18 122/68 100 07/14/20 22:08 07/14/20 22:20 07/14/20 22:08 07/14/20 22:08 07/14/20 22:08 General appearance: Present: no acute distress, well-nourished - EENT Eyes: Present: PERRL, EOM intact ENT: hearing intact, clear oral mucosa, dentition normal - Neck Neck: Present: supple, normal ROM - Respiratory Respiratory effort: normal Respiratory: bilateral: CTA - Cardiovascular Rhythm: regular Heart Sounds: Present: S1 & S2. Absent: gallop, rub - Extremities Extremities: no ischemia, No edema, Full ROM - Abdominal General gastrointestinal: soft, non-tender, non-distended, normal bowel sounds - Integumentary Integumentary: Present: clear, warm, dry - Neurologic Neurologic: CNII-XII intact, moves all extremities HEART Score - HEART Score Age: 45-65 Risk factors: > 3 risk factors or hx of atherosclerotic disease Troponin: Troponin T 0.074 ng/mL (0.00-0.029) H D 07/14/20 21:07 Troponin: < normal limit - Critical Actions Critical Actions: 0-3 pts:0.9-1.7%risk of adverse cardiac event.Candidate for discharge Results - Labs CBC & Chem 7: 07/14/20 05:55 07/14/20 05:55 Labs: Laboratory Last Values WBC 10.0 K/mm3 (4.5-11.0) 07/14/20 05:55 RBC 4.74 M/mm3 (3.65-5.03) 07/14/20 05:55 Hgb 14.7 gm/dl (11.8-15.2) 07/14/20 05:55 Hct 43.3 % (35.5-45.6) 07/14/20 05:55 MCV 91 fl (84-94) 07/14/20 05:55 MCH 31 pg (28-32) 07/14/20 05:55 MCHC 34 % (32-34) 07/14/20 05:55 RDW 13.5 % (13.2-15.2) 07/14/20 05:55 Plt Count 192 K/mm3 (140-440) 07/14/20 05:55 Lymph % (Auto) 19.4 % (13.4-35.0) 07/14/20 05:55 [place] % (Auto) 7.4 % (0.0-7.3) H 07/14/20 05:55 Eos % (Auto) 1.3 % (0.0-4.3) 07/14/20 05:55 Baso % (Auto) 1.0 % (0.0-1.8) 07/14/20 05:55 Lymph # (Auto) 2.0 K/mm3 (1.2-5.4) 07/14/20 05:55 [place] # (Auto) 0.7 K/mm3 (0.0-0.8) 07/14/20 05:55 Eos # (Auto) 0.1 K/mm3 (0.0-0.4) 07/14/20 05:55 Baso # (Auto) 0.1 K/mm3 (0.0-0.1) 07/14/20 05:55 Seg Neutrophils % 70.9 % (40.0-70.0) H 07/14/20 05:55 Seg Neutrophils # 7.1 K/mm3 (1.8-7.7) 07/14/20 05:55 PT 12.5 Sec. (12.2-14.9) 07/13/20 13:17 INR 0.92 (0.87-1.13) 07/13/20 13:17 APTT 25.2 Sec. (24.2-36.6) 07/13/20 13:17 Thrombin Time 17.5 Sec. (15.1-19.6) 07/13/20 13:17 Sodium 137 mmol/L (137-145) 07/14/20 05:55 Potassium 3.7 mmol/L (3.6-5.0) 07/14/20 05:55 Chloride 99.0 mmol/L (98-107) 07/14/20 05:55 Carbon Dioxide 25 mmol/L (22-30) 07/14/20 05:55 Anion Gap 17 mmol/L 07/14/20 05:55 BUN 13 mg/dL (9-20) 07/14/20 05:55 Creatinine 1.0 mg/dL (0.8-1.3) 07/14/20 05:55 Estimated GFR > 60 ml/min 07/14/20 05:55 BUN/Creatinine Ratio 13 % 07/14/20 05:55 Glucose 285 mg/dL (75-100) H 07/14/20 05:55 POC Glucose 254 mg/dL (70-105) H 07/14/20 17:28 Hemoglobin A1c 10.2 % (4-6) H 07/14/20 05:55 Calcium 8.6 mg/dL (8.4-10.2) 07/14/20 05:55 Magnesium 2.20 mg/dL (1.7-2.3) 07/13/20 13:17 Total Bilirubin 0.20 mg/dL (0.1-1.2) 07/14/20 05:55 Direct Bilirubin < 0.2 mg/dL (0-0.2) 07/13/20 13:17 AST 19 units/L (5-40) 07/14/20 05:55 ALT 26 units/L (7-56) 07/14/20 05:55 Alkaline Phosphatase 102 units/L (35-129) 07/14/20 05:55 Troponin T 0.074 ng/mL (0.00-0.029) H D 07/14/20 21:07 NT-Pro-B Natriuret Pep 189.6 pg/mL (0-900) 07/13/20 13:17 Total Protein 6.4 g/dL (6.3-8.2) 07/14/20 05:55 Albumin 3.3 g/dL (3.9-5) L 07/14/20 05:55 Albumin/Globulin Ratio 1.1 % 07/14/20 05:55 Triglycerides 114 mg/dL (2-149) 07/13/20 13:17 Cholesterol 287 mg/dL (50-199) H 07/13/20 13:17 LDL Cholesterol Direct 211 mg/dL (50-130) H 07/13/20 13:17 HDL Cholesterol 70 mg/dL (40-59) H 07/13/20 13:17 Cholesterol/HDL Ratio 4.10 % 07/13/20 13:17 Urine Opiates Screen Negative 07/13/20 16:54 Urine Methadone Screen Negative 07/13/20 16:54 Ur Barbiturates Screen Negative 07/13/20 16:54 Ur Phencyclidine Scrn Negative 07/13/20 16:54 Ur Amphetamines Screen Negative 07/13/20 16:54 U Benzodiazepines Scrn Negative 07/13/20 16:54 Urine Cocaine Screen Negative 07/13/20 16:54 U Marijuana (THC) Screen Negative 07/13/20 16:54 Drugs of Abuse Note Disclamer 07/13/20 16:54 - Diagnostic Impressions Diagnostic Impressions: Echocardiogram 07/14/20 08:48 Transthoracic Echocardiogram Indication: STROKE BP: 142/68 HR: 70 Conclusions *Global left ventricular systolic function is at the lower limits of normal. *The estimated ejection fraction is 50-55%. *Moderate concentric left ventricular hypertrophy is observed. *There is trace of mitral regurgitation. *There is trace tricuspid regurgitation. *A patent foramen ovale is not demonstrated by agitated saline contrast. Findings Left Ventricle: The left ventricular chamber size is normal. Moderate concentric left ventricular hypertrophy is observed. Global left ventricular systolic function is at the lower limits of normal. The estimated ejection fraction is 50-55%. Left Atrium: The left atrium is mildly dilated. Right Ventricle: The right ventricular cavity size is normal. The right ventricular global systolic function is normal. Right Atrium: The right atrial cavity size is normal. A patent foramen ovale is not demonstrated by agitated saline contrast. Aortic Valve: The aortic valve is trileaflet. The aortic valve leaflets are mildly thickened. There is no evidence of aortic regurgitation. There is no evidence of aortic stenosis. Mitral Valve: The mitral valve leaflets are mildly thickened. There is trace of mitral regurgitation. There is no evidence of mitral stenosis. Tricuspid Valve: There is trace tricuspid regurgitation. No pulmonary hypertension is noted. Pulmonic Valve: There is trace pulmonic regurgitation. Pericardium: There is no pericardial effusion. Aorta: There is no dilatation of the ascending aorta. There is no dilatation of the aortic root. Venous: The inferior vena cava appears normal in size. Contrast: Intravenous agitated saline contrast was used to assess intracardiac shunting. Measurements Chambers 2D Name Value Normal Range IVSd (2D) 1.33 cm (0.6 - 1.1) LVPWd (2D) 1.38 cm (0.6 - 1.1) LVIDd (2D) 5.06 cm (3.7 - 5.6) LVIDs (2D) 3.63 cm (2 - 3.8) LV FS (2D) 28.34 % - EF Teichholz (2D) 54.44 % - Ao root diameter (2D) 3.83 cm (2 - 3.7) Volumes/Mass Name Value Normal Range LA ESV SP 4CH (A/L) 59.24 ml - LA ESV SP 2CH (A/L) 44.39 ml - LA ESV BP (A/L) 52.89 ml - LA ESV BP (A/L) index 23.3 ml/m2 - LA ESV SP 4CH (MOD) 55.01 ml - LA ESV SP 2CH (MOD) 43.29 ml - LA ESV BP (MOD) 50.15 ml - LA ESV BP (MOD) index 22.09 ml/m2 - Diastolic/Systolic Function Name Value Normal Range MV E-wave Vmax 0.74 m/sec - MV deceleration time 188.56 msec - MV A-wave Vmax 0.52 m/sec - MV E:A ratio 1.41 ratio - Aortic Valve Name Value Normal Range AV Vmax 1.2 m/sec - AV VTI 22.47 cm - AV peak gradient 5.78 mmHg - AV mean gradient 3.11 mmHg - LVOT diameter 2.09 cm - LVOT Vmax 0.87 m/sec - LVOT VTI 16.89 cm - LVOT peak gradient 3.04 mmHg - LVOT mean gradient 1.39 mmHg - SV LVOT 58 ml - ERICKA (continuity Vmax) 2.49 cm2 - ERICKA (continuity VTI) 2.58 cm2 - Pulmonic Valve/Qp:Qs Name Value Normal Range PV acceleration time 146.53 msec - Muller/IV: Voiding Method Urinal IV Catheter Type [Right INT / Saline Lock Antecubital] Active Medications - Current Medications Current Medications: Generic Name Dose Route Start Last Admin Trade Name Freq PRN Reason Stop Dose Admin Acetaminophen 650 mg 07/13/20 15:24 Tylenol PO Q4H PRN Pain MILD(1-3)/Fever >100.5/ROMANO Albuterol/Ipratropium 1 ampul 07/14/20 20:00 07/15/20 17:44 Duoneb *Not For Prn Use* IH Not Given BIDRT [facility] Allopurinol 300 mg 07/13/20 16:00 07/14/20 10:36 Zyloprim PO 300 mg DAILY SIMONA Administration Aspirin 325 mg 07/13/20 15:00 07/14/20 09:54 Aspirin PO 325 mg QDAY SIMONA Administration Carvedilol 25 mg 07/13/20 16:00 07/14/20 21:50 Coreg PO 25 mg BID SIMONA Administration Clopidogrel Bisulfate 75 mg 07/14/20 10:00 07/14/20 10:00 Plavix PO 75 mg QDAY SIMONA Administration Famotidine 20 mg 07/13/20 16:00 07/14/20 21:50 Pepcid PO 20 mg BID SIMONA Administration Furosemide 40 mg 07/13/20 16:00 07/14/20 05:24 Lasix PO 40 mg DAILY@0600 SIMONA Administration Gabapentin 300 mg 07/13/20 20:00 07/14/20 21:50 Gabapentin PO 300 mg TID SIMONA Administration Heparin Sodium (Porcine) 5,000 unit 07/14/20 10:00 07/14/20 21:50 Heparin SUB-Q 5,000 unit Q12HR SIMONA Administration Hydromorphone HCl 0.5 mg 07/13/20 15:24 Dilaudid IV Q3H PRN Pain , Severe (7-10) Insulin Human Isoph/Insulin Regular 15 unit 07/14/20 17:00 07/14/20 18:05 Humulin 70/30 SUB-Q 15 unit BIDDIAB SIMONA Administration Insulin Human Lispro 0 unit 07/13/20 16:30 07/14/20 21:51 Humalog SUB-Q 3 unit ACHS SIMONA Administration Protocol Linagliptin 5 mg 07/13/20 15:30 07/14/20 09:53 Tradjenta PO 5 mg QDAY SIMONA Administration Lisinopril 40 mg 07/13/20 15:20 07/14/20 09:54 Zestril PO 40 mg QDAY SIMONA Administration Nicotine 14 mg 07/14/20 22:00 07/14/20 21:49 Habitrol TD 14 mg Q24H SIMONA Administration Nifedipine 90 mg 07/13/20 15:30 07/14/20 09:54 Procardia Xl PO 90 mg QDAY SIMONA Administration Ondansetron HCl 4 mg 07/13/20 15:24 Zofran IV Q8H PRN Nausea And Vomiting Oxycodone/Acetaminophen 1 tab 07/13/20 15:24 Percocet 5/325 PO Q6H PRN Pain, Moderate (4-6) Potassium Chloride 20 meq 07/13/20 15:30 07/14/20 09:54 K-Dur PO 20 meq QDAY SIMONA Administration Pravastatin Sodium 40 mg 07/13/20 22:00 07/14/20 21:50 Pravachol PO 40 mg QHS SIMONA Administration Sodium Chloride 10 ml 07/13/20 22:00 07/14/20 21:51 Sodium Chloride Flush Syringe 10 Ml IV 10 ml BID SIMONA Administration Sodium Chloride 10 ml 07/14/20 09:00 Sodium Chloride Flush Syringe 10 Ml IV PRN PRN LINE FLUSH
[2020-07-15] MEDS: FAMOTIDINE 20 MG TAB PO SCH ×2 (21:47→22:09)
[2020-07-15] MEDS: PRAVASTATIN 40 MG TAB PO SCH (21:48)
[2020-07-15] MEDS: GABAPENTIN 300 MG CAP PO SCH ×2 (21:48→22:07)
[2020-07-15] MEDS: carvediloL 25 MG TAB PO SCH ×2 (21:48→22:08)
[2020-07-15] MEDS: NICOTINE 14 MG/24 HR PATCH TD SCH (21:49)
[2020-07-15] MEDS: INSULIN LISPRO 100 UNIT/ML VIAL 3 mL SUB-Q SCH ×3 (21:49→22:07)
[2020-07-15] MEDS: HEPARIN 5,000 UNIT/1 ML VIAL SUB-Q SCH ×2 (21:49→22:09)
[2020-07-15] MEDS: FUROSEMIDE 40 MG TAB PO SCH (22:05)
[2020-07-15] MEDS: INSULIN NPH/REGULAR 70/30 INJ SUB-Q SCH (22:08)
[2020-07-15] MEDS: ASPIRIN 325 MG TAB PO SCH (22:08)
[2020-07-15] MEDS: POTASSIUM CHLORIDE ER 20 MEQ TAB PO SCH (22:09)
[2020-07-15] MEDS: CLOPIDOGREL 75 MG TAB PO SCH (22:09)
[2020-07-15] MEDS: LISINOPRIL 40 MG TAB PO SCH (22:10)
[2020-07-15] MEDS: LINAGLIPTIN 5 MG TAB PO SCH (22:10)
[2020-07-15] MEDS: NIFEdipine XL 90 MG TAB PO SCH (22:10)
[2020-07-15] MEDS: allopurinoL 300 MG TAB PO SCH (22:11)
--- NOTE | 2020-07-16 01:29 | Progress Note ---
Assessment and Plan - Patient Problems (1) Hypertensive emergency Current Visit: No Status: Acute Plan to address problem: Patient initiated on IV labetalol 10 mg weekly as needed and patient also initiated on his regular antihypertensive. Patient is noncompliant. Patient counseled about compliance. (2) Acute CVA (cerebrovascular accident) Current Visit: Yes Status: Acute Plan to address problem: Telemetry neurology consult appreciated Patient not in the window for TPA MRI/MRA suggested by telemetry neurology which is going to be done tomorrow In-house neurology consult Aspirin and Plavix added (3) HLD (hyperlipidemia) Current Visit: Yes Status: Chronic Qualifiers: Hyperlipidemia type: mixed hyperlipidemia Qualified Code(s): E78.2 - Mixed hyperlipidemia Plan to address problem: Continue statins (4) Peripheral neuropathy Current Visit: Yes Status: Chronic Qualifiers: Peripheral neuropathy type: polyneuropathy, unspecified Qualified Code(s): G62.9 - Polyneuropathy, unspecified Plan to address problem: Continue gabapentin (5) Gout Current Visit: Yes Status: Inactive Plan to address problem: Continue allopurinol (6) CHF (congestive heart failure) Current Visit: Yes Status: Chronic Qualifiers: Heart failure type: combined systolic and diastolic Heart failure chronicity: chronic Qualified Code(s): I50.42 - Chronic combined systolic (congestive) and diastolic (congestive) heart failure Plan to address problem: Continue Lasix orally (7) DVT prophylaxis Current Visit: No Status: Acute Plan to address problem: On heparin and GI prophylaxis Subjective Date of service: 07/14/20 Principal diagnosis: Acute Cva Interval history: 54-year-old male comes in for increased left -sided weakness since yesterday. Patient is a poor historian but apparently had a stroke with right -sided weakness couple of years ago.Patient says his blood glucose levels have been running high. Patient apparently recovered completely from his stroke and now has new onset right -sided weakness. No loss of consciousness. No palpitations or shortness of breath. No exposure to coronavirus. Last admission from 2018 was reviewed where he was treated for costochondritis diabetes and hypertensive emergency. At that time patient was complaining of chronic weakness and numbness on the right side. Objective - Constitutional Vitals: Vital Signs - 12hr 07/15/20 07/15/20 07/15/20 19:09 21:26 21:40 Temperature 99.0 F Pulse Rate 72 Pulse Rate [ 83 Bilateral Throughout] Respiratory 18 Rate Respiratory 18 Rate [Bilateral Throughout] Blood Pressure 121/69 O2 Sat by Pulse 96 97 Oximetry 07/15/20 07/15/20 21:48 23:03 Temperature 98.6 F Pulse Rate 78 71 Pulse Rate [ Bilateral Throughout] Respiratory 18 Rate Respiratory Rate [Bilateral Throughout] Blood Pressure 121/69 151/79 O2 Sat by Pulse 94 Oximetry General appearance: Present: no acute distress, well-nourished - EENT Eyes: PERRL, EOM intact ENT: hearing intact, clear oral mucosa Ears: bilateral: normal - Neck Neck: supple, normal ROM - Respiratory Respiratory effort: normal Respiratory: bilateral: CTA - Breasts Breasts: normal - Cardiovascular Heart rate: 78 Rhythm: regular Heart Sounds: Present: S1 & S2. Absent: gallop, rub Extremities: pulses intact, No edema, normal color, Full ROM - Gastrointestinal General gastrointestinal: Present: soft, non-tender, non-distended, normal bowel sounds - Genitourinary Male genitourinary: normal - Integumentary Integumentary: clear, warm, dry - Musculoskeletal Musculoskeletal: 1, strength equal bilaterally - Neurologic Neurologic: focal deficits (Rt hemiparesis) - Psychiatric Psychiatric: memory intact, appropriate mood/affect, intact judgment & insight - Allied health notes Allied health notes reviewed: nursing, case management - Labs CBC & Chem 7: 07/14/20 05:55 07/14/20 05:55 HEART Score - HEART Score Age: 45-65 Risk factors: > 3 risk factors or hx of atherosclerotic disease Troponin: Troponin T 0.074 ng/mL (0.00-0.029) H D 07/14/20 21:07 Troponin: < normal limit - Critical Actions Critical Actions: 0-3 pts:0.9-1.7%risk of adverse cardiac event.Candidate for discharge
[2020-07-16] MEDS: FUROSEMIDE 40 MG TAB PO SCH (05:22)
[2020-07-16] MEDS: IPRATROPIUM/ALBUTEROL SULFATE 3 ML AMPUL.NEB IH SCH (08:33)
--- NOTE | 2020-07-16 08:54 | Discharge Summary ---
Providers - Providers Date of Admission: 07/13/20 14:49 Date of discharge: 07/16/20 Attending physician: ANNE MARIE ABERNATHY 07/14/20 Consult to Physician [CONS] Routine Comment: Consulting Provider: ANN BENÍTEZ Physician Instructions: Reason For Exam: Poss CVA 07/14/20 08:47 Occupational Therapy Evaluate and Treat [CONS] Routine Comment: Reason For Exam: Neuro deficits Physical Therapy Evaluation and Treat [CONS] Routine Comment: Reason For Exam: Neuro deficits [facility] care physician: [facility] Hospitalization Reason for admission: CVA Condition: Stable Hospital course: 54-year-old gentleman admitted with the symptoms of unable to see in the left eye since Tuesday. He reported that he has 40% vision in his left eye to begin with but now he cannot see clearly. He denied any left-sided weakness although he does say that he has whole body weakness. He denied any headache, nausea, vomiting, chest pain, heart palpitations. He reported that he has history of some heart issues and therefore he has been taking aspirin and Plavix. He denied any missing the dose of these medications. He had CT scan of the brain done in the emergency room which revealed and as reported old right occipital lobe stroke and cerebellar stroke. There was no hemorrhage. MRI was attempted twice but patient refused due to claustrophobia. The patient was admitted with diagnosis of acute CVA and was seen by neurology in consultation. Neurology recommended to continue aspirin and Plavix for now for 21 days and then consider discontinuing aspirin and continue Plavix at that point. Also patient was to continue with statin for secondary stroke prevention. Patient had high antihypertensive control with medications. Patient will need ophthalmology consultation as an outpatient. Patient also had studies for sed rate, TSH, vitamin B12, JESUS and FTA antibody which we followed up as an outpatient. Patient will need to have further follow-up with hypercoagulable work-up if no etiology is found for CVA. Patient is to follow-up with neurology as an outpatient. I discussed the case with cardiology who defers to neurology with regards to long-term anticoagulation. Neurology agrees with Eliquis 5 mg p.o. twice daily patient should follow-up with cardiology and neurology as an outpatient. Dedicated discharge time 35 minutes. Disposition: - TO HOME OR SELFCARE Time spent for discharge: 35 - Discharge Diagnoses (1) Diplopia Status: Acute (2) Acute CVA (cerebrovascular accident) Status: Acute (3) Hyperlipidemia Status: Acute Comment: LDL goal < 70 (4) Stroke Status: Acute (5) HLD (hyperlipidemia) Status: Chronic Qualifiers: Hyperlipidemia type: mixed hyperlipidemia Qualified Code(s): E78.2 - Mixed hyperlipidemia Core Measure Documentation - Palliative Care Palliative Care/ Comfort Measures: Not Applicable - Core Measures Any of the following diagnoses?: stroke - Stroke Discharge Requirements Statin for LDL = or >70 mg/dl on DC: Yes Anticoag for atrial fib/atrial flutter: Yes Antithrombotic for ischemic stroke: Yes Exam - Constitutional Vitals: Temp Pulse Resp BP Pulse Ox 97.8 F 73 20 149/84 95 07/16/20 07:40 07/16/20 07:40 07/16/20 07:40 07/16/20 07:40 07/16/20 07:40 General appearance: Present: no acute distress, well-nourished - EENT Eyes: Present: PERRL ENT: hearing intact, clear oral mucosa - Neck Neck: Present: supple, normal ROM - Respiratory Respiratory effort: normal Respiratory: bilateral: CTA - Cardiovascular Heart Sounds: Present: S1 & S2. Absent: rub, click - Extremities Extremities: pulses symmetrical, No edema Peripheral Pulses: within normal limits - Abdominal General gastrointestinal: Present: soft, non-tender, non-distended, normal bowel sounds Male genitourinary: Present: normal - Integumentary Integumentary: Present: clear, warm, dry - Musculoskeletal Musculoskeletal: gait normal, strength equal bilaterally - Psychiatric Psychiatric: appropriate mood/affect, intact judgment & insight - Neurologic Neurologic: CNII-XII intact, moves all extremities Plan Activity: advance as tolerated Weight Bearing Status: Weight Bear as Tolerated Diet: low fat, low cholesterol, low salt Follow up with: SHARA LEWIS MD [Primary Care Provider] - 3-5 Days Prescriptions: carvediloL [Coreg] 25 mg PO BID #60 tablet Apixaban [Eliquis] 5 mg PO BID #60 tablet Gabapentin 300 mg PO TID #90 cap Furosemide [Lasix TAB] 40 mg PO DAILY #30 tablet AtorvaSTATin [Lipitor] 40 mg PO QHS #30 tab NIFEdipine XL [Procardia Xl] 90 mg PO QDAY #30 tablet lisinopriL [Zestril TAB] 40 mg PO QDAY #30 tablet allopurinoL [Zyloprim] 300 mg PO DAILY #30
[2020-07-16] MEDS: INSULIN LISPRO 100 UNIT/ML VIAL 3 mL SUB-Q SCH ×2 (09:14→12:29)
[2020-07-16] MEDS: ASPIRIN 325 MG TAB PO SCH (09:15)
[2020-07-16] MEDS: FAMOTIDINE 20 MG TAB PO SCH (09:15)
[2020-07-16] MEDS: NIFEdipine XL 90 MG TAB PO SCH (09:15)
[2020-07-16] MEDS: GABAPENTIN 300 MG CAP PO SCH ×2 (09:15→15:36)
[2020-07-16] MEDS: POTASSIUM CHLORIDE ER 20 MEQ TAB PO SCH (09:16)
[2020-07-16] MEDS: carvediloL 25 MG TAB PO SCH (09:16)
[2020-07-16] MEDS: allopurinoL 300 MG TAB PO SCH (09:16)
[2020-07-16] MEDS: CLOPIDOGREL 75 MG TAB PO SCH (09:16)
[2020-07-16] MEDS: LISINOPRIL 40 MG TAB PO SCH (09:16)
[2020-07-16] MEDS: LINAGLIPTIN 5 MG TAB PO SCH (09:16)
[2020-07-16] MEDS: HEPARIN 5,000 UNIT/1 ML VIAL SUB-Q SCH (09:22)
[2020-07-16] MEDS: INSULIN NPH/REGULAR 70/30 INJ SUB-Q SCH (09:22)
--- NOTE | 2020-07-16 10:41 | Consultation ---
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 His latest thallium stress test was normal and he has a normal left ventricular ejection fraction by echocardiogram. In addition to his coronary disease, he has a history of atrial flutter and has previously undergone atrial flutter ablation. He is no longer on anticoagulation therapy. Co-morbidities includes hyperten wagner, diabetes, sleep apnea, peripheral vascular disease and hyperlipidemia. Patient presented 07/13 with vision changes and unsteady gait, workup with a head CT scan reports remote right occipital and right cerebellar infarctions. Neurology is following. Further evaluation with an echocardiogram showed a mildly dilated LA, normal left ventricular systolic function, ejection fraction 50-55%. Bubble study is negative. A cardiac consultation has been requested for anticoagulation recommendations. His 12 lead ECG is sinus rhythm with premature atrial complexes. There is no evidence of atrial fibrillation on review of telemetry strips thus far. There are no reports of chest pain, unusual shortness of breath or palpitations. Past History Social history: smoking (ex-smoker) Family history: no significant family history Medications and Allergies Allergies Allergy/AdvReac Type Severity Reaction Status Date / Time No Known Allergies Allergy Verified 11/08/19 10:29 Home Medications Medication Instructions Recorded Confirmed Last Taken Type Gabapentin 300 mg PO TID 06/22/18 07/13/20 Unknown History allopurinoL [Zyloprim] 300 mg PO DAILY 06/22/18 07/13/20 07/13/20 History Aspirin 325 mg PO QDAY #30 tablet 06/24/18 07/13/20 Unknown Rx Furosemide [Lasix TAB] 40 mg PO DAILY #30 tablet 06/24/18 07/13/20 07/13/20 Rx Potassium Chloride [Klor-Con 8] 8 meq PO DAILY #30 tablet 06/24/18 07/13/20 07/13/20 Rx Simvastatin [Zocor TAB] 20 mg PO QHS #30 tablet 06/24/18 07/13/20 07/13/20 Rx NIFEdipine XL [Procardia Xl] 60 mg PO QDAY #30 tablet 11/08/19 07/13/20 07/13/20 Rx carvediloL [Coreg] 25 mg PO BID #60 tablet 11/08/19 07/13/20 07/13/20 Rx lisinopriL [Zestril TAB] 40 mg PO QDAY #30 tablet 11/08/19 07/13/20 07/13/20 Rx Dextromethorphan HBr [Robafen 15 mg PO Q6H PRN 07/13/20 07/13/20 Unknown History Cough] Ibuprofen [Motrin Ib] 200 mg PO Q6H PRN 07/13/20 07/13/20 Unknown History Ipratropium/Albuter (Nf) 2 puff IH QID 07/13/20 07/13/20 Unknown History [Combivent (Nf)] Labetalol HCl [Labetalol 300mg TAB] 300 mg PO TID 07/13/20 07/13/20 02/01/20 History Phenylephrine/Dm/Acetaminop/GG 20 ml PO Q6H PRN 07/13/20 07/13/20 07/12/20 History [Mucinex Psql-Drc-Adblfrezjl Lq] Sitagliptin Phosphate [Januvia] 100 mg PO QDAY 07/13/20 07/13/20 07/13/20 History Active Meds: Active Medications Acetaminophen (Tylenol) 650 mg PO Q4H PRN PRN Reason: Pain MILD(1-3)/Fever >100.5/ROMANO Albuterol/Ipratropium (Duoneb *Not For Prn Use*) 1 ampul IH BIDRT [facility] Last Admin: 07/16/20 08:33 Dose: 1 ampul Documented by: Allopurinol (Zyloprim) 300 mg PO DAILY [facility] Last Admin: 07/16/20 09:16 Dose: 300 mg Documented by: Aspirin (Aspirin) 325 mg PO QDAY [facility] Last Admin: 07/16/20 09:15 Dose: 325 mg Documented by: Carvedilol (Coreg) 25 mg PO BID [facility] Last Admin: 07/16/20 09:16 Dose: 25 mg Documented by: Clopidogrel Bisulfate (Plavix) 75 mg PO QDAY [facility] Last Admin: 07/16/20 09:16 Dose: 75 mg Documented by: Famotidine (Pepcid) 20 mg PO BID [facility] Last Admin: 07/16/20 09:15 Dose: 20 mg Documented by: Furosemide (Lasix) 40 mg PO DAILY@0600 [facility] Last Admin: 07/16/20 05:22 Dose: 40 mg Documented by: Gabapentin (Gabapentin) 300 mg PO TID [facility] Last Admin: 07/16/20 09:15 Dose: 300 mg Documented by: Heparin Sodium (Porcine) (Heparin) 5,000 unit SUB-Q Q12HR [facility] Last Admin: 07/16/20 09:22 Dose: 5,000 unit Documented by: Hydromorphone HCl (Dilaudid) 0.5 mg IV Q3H PRN PRN Reason: Pain , Severe (7-10) Insulin Human Isoph/Insulin Regular (Humulin 70/30) 15 unit SUB-Q BIDDIAB [facility] Last Admin: 07/16/20 09:22 Dose: 15 unit Documented by: Insulin Human Lispro (Humalog) 0 unit SUB-Q ACHS [facility]; Protocol Last Admin: 07/16/20 09:14 Dose: 3 unit Documented by: Linagliptin (Tradjenta) 5 mg PO QDAY [facility] Last Admin: 07/16/20 09:16 Dose: 5 mg Documented by: Lisinopril (Zestril) 40 mg PO QDAY [facility] Last Admin: 07/16/20 09:16 Dose: 40 mg Documented by: Nicotine (Habitrol) 14 mg TD Q24H [facility] Last Admin: 07/15/20 21:49 Dose: 14 mg Documented by: Nifedipine (Procardia Xl) 90 mg PO QDAY [facility] Last Admin: 07/16/20 09:15 Dose: 90 mg Documented by: Ondansetron HCl (Zofran) 4 mg IV Q8H PRN PRN Reason: Nausea And Vomiting Oxycodone/Acetaminophen (Percocet 5/325) 1 tab PO Q6H PRN PRN Reason: Pain, Moderate (4-6) Potassium Chloride (K-Dur) 20 meq PO QDAY [facility] Last Admin: 07/16/20 09:16 Dose: 20 meq Documented by: Pravastatin Sodium (Pravachol) 40 mg PO QHS [facility] Last Admin: 07/15/20 21:48 Dose: 40 mg Documented by: Sodium Chloride (Sodium Chloride Flush Syringe 10 Ml) 10 ml IV BID [facility] Last Admin: 07/16/20 09:17 Dose: 10 ml Documented by: Sodium Chloride (Sodium Chloride Flush Syringe 10 Ml) 10 ml IV PRN PRN PRN Reason: LINE FLUSH Physical Examination Vital Signs Temp Pulse Resp BP Pulse Ox 97.6 F 98 H 18 209/131 98 07/13/20 12:28 07/13/20 12:28 07/13/20 12:28 07/13/20 12:28 07/13/20 12:28 General appearance: no acute distress Cardiac: Positive: Reg Rate and Rhythm Lungs: Positive: Decreased Breath Sounds Neuro: Positive: Grossly Intact Results 07/14/20 05:55 07/14/20 05:55 Assessment and Plan Acute CVA echo showed a mildly dilated LA, normal left ventricular systolic function, ejection fraction 50-55%. Bubble study is negative. Hx of atrial flutter with prior atrial flutter ablation. Hx of Sleep apnea Hx of small vessel CAD normal MPI 2018 recommend for medical therapy by [facility] 2015 Hypertension Diabetes Continue medical management for small vessel coronary artery disease. Will defer benefits for snf anticoagulation to neurology. As an outpatient will recommend a 30 day event monitor.
[2020-07-16 12:05] VITALS: BP 145/82
--- NOTE | 2020-07-16 12:20 | Progress Note ---
Assessment and Plan 54 yo male with recrudescence of same symptoms as november 05 2019 with left eye visual disturbance and right-sided numbness. Notes burning with urination lately. Unable to complete a closed MRI. 1. Stroke, recrudescence vs. MS - outpatient OPEN MRI Brain w/ wo contrast (if no contraindications; in 1 week) and f/u w/ Neurology in 2 weeks post-MRI; continue antiplatelet/statin therapy; modification of long-term risk factors including meds, diet, and exercise. 2. Visual Disturbance w/ binocular diplopia and left CN 3 deficit (partial) - outpatient f/u Ophthalmology and Neurology; pt/ot evaluation for low vision therapy. 3. Right-sided numbness w/ gait difficulty - pt/ot evaluation/monitoring. 4. PVDx - concern is raised based on clinical hx; per primary team. Bill Sebastian MD Neurology Subjective Date of service: 07/16/20 Principal diagnosis: Acute Cva Interval history: Notes continued blurred is at left eye and maybe at the corner (right) of the right eye. Objective - Exam Narrative Exam: Gen: nad, well-nourished; Head: normocephalic; Eyes: no gaze deviation; no ptosis; ENT: normal vocalization; CVS: warm and well-perfused; Pulm: no respiratory distress;; GI: non-distended, protuberant; Ext: no cyanosis or edema at distal extremities; Skin: no acute rash or hives at distal extremities; Heme: no pathologic bruising or ecchymosis at distal extremities; Neuro: alert, oriented to name, age, month, year, surroundings, no dysarthria, no aphasia, CN 2 - PERRL, visual severino intact, CN 3, 4, 6 - EOMI, CN 5 - facial sensation decreased on right to light touch, CN 7 - facial movement symmetric, CN 8 - hearing grossly intact, CN 9, 10 - uvula midline, CN 11 - shrug symmetric, CN 12 - tongue midline; Motor - at least 4/5 in all exts w/ ?4-/5 at left hand; 4-/5 at LLE; Sensory - light touch decreased at right arm/leg, Cerebellar - fnf difficulty in left visual field w/ left arm;, Gait - deferred secondary to fall risk; - Vital Sign Vital Signs - 12hr 07/16/20 07/16/20 07/16/20 02:00 03:24 07:40 Temperature 98.4 F 97.8 F Pulse Rate 70 73 73 Pulse Rate [ Bilateral Throughout] Respiratory 18 20 Rate Respiratory Rate [Bilateral Throughout] Blood Pressure 121/72 149/84 O2 Sat by Pulse 95 95 Oximetry 07/16/20 07/16/20 07/16/20 08:33 09:16 09:29 Temperature Pulse Rate Pulse Rate [ 87 Bilateral Throughout] Respiratory Rate Respiratory 18 Rate [Bilateral Throughout] Blood Pressure 149/84 O2 Sat by Pulse 95 Oximetry 07/16/20 07/16/20 11:00 11:26 Temperature 97.6 F Pulse Rate 70 Pulse Rate [ Bilateral Throughout] Respiratory 18 20 Rate Respiratory Rate [Bilateral Throughout] Blood Pressure 145/82 O2 Sat by Pulse 95 Oximetry - Laboratory Findings CBC and BMP: 07/14/20 05:55 07/14/20 05:55 Abnormal Lab Findings: Abnormal Labs 07/13/20 07/13/20 07/13/20 12:46 13:17 13:17 RBC 5.09 H Hgb 15.9 H Hct 46.5 H [place] % (Auto) Seg Neutrophils % 72.7 H Glucose 223 H POC Glucose 200 H Hemoglobin A1c Troponin T 0.065 H Albumin 3.6 L Cholesterol 287 H LDL Cholesterol Direct 211 H HDL Cholesterol 70 H 07/13/20 07/13/20 07/14/20 17:02 20:55 05:55 RBC Hgb Hct [place] % (Auto) 7.4 H Seg Neutrophils % 70.9 H Glucose POC Glucose 147 H 277 H Hemoglobin A1c Troponin T Albumin Cholesterol LDL Cholesterol Direct HDL Cholesterol 07/14/20 07/14/20 07/14/20 05:55 05:55 07:49 RBC Hgb Hct [place] % (Auto) Seg Neutrophils % Glucose 285 H POC Glucose 230 H Hemoglobin A1c 10.2 H Troponin T Albumin 3.3 L Cholesterol LDL Cholesterol Direct HDL Cholesterol 07/14/20 07/14/20 07/14/20 09:35 11:44 15:05 RBC Hgb Hct [place] % (Auto) Seg Neutrophils % Glucose POC Glucose 302 H Hemoglobin A1c Troponin T 0.102 H* D 0.094 H Albumin Cholesterol LDL Cholesterol Direct HDL Cholesterol 07/14/20 07/14/20 17:28 21:07 RBC Hgb Hct [place] % (Auto) Seg Neutrophils % Glucose POC Glucose 254 H Hemoglobin A1c Troponin T 0.074 H D Albumin Cholesterol LDL Cholesterol Direct HDL Cholesterol
[2020-07-20 14:27] LABS: ANA Screen, IFA Negative (Negative)
== END 2020-07-16 15:38 | disposition home or self-care (01) ==
LOC: ED 12:22 → INTOOBSV 14:49 → 4A 14:49
PROVIDERS: ADMIT Internal Medicine; ATTEND Hospitalist
DX: I63.9 Cerebral infarction, unspecified (principal); I16.1 Hypertensive emergency; I11.0 Hypertensive heart disease with heart failure; I50.42 Chronic combined systolic (congestive) and diastolic (congestive) heart failure; G62.9 Polyneuropathy, unspecified; M10.9 Gout, unspecified; E78.2 Mixed hyperlipidemia; E11.9 Type 2 diabetes mellitus without complications; R74.8 Abnormal levels of other serum enzymes; R53.1 Weakness; R29.704 NIHSS score 4; H53.9 Unspecified visual disturbance; J44.9 Chronic obstructive pulmonary disease, unspecified; G47.30 Sleep apnea, unspecified; H53.2 Diplopia; E78.00 Pure hypercholesterolemia, unspecified; I48.91 Unspecified atrial fibrillation; F17.200 Nicotine dependence, unspecified, uncomplicated; Z98.890 Other specified postprocedural states; Z79.82 Long term (current) use of aspirin; Z23 Encounter for immunization; Z79.899 Other long term (current) drug therapy
CPT/HCPCS: 36415; 70450; 71045; 80048; 80053; 80061; 80076; 80307; 82607; 82962; 83036; 83735; 83880; 84443; 84484; 85025; 85610; 85652; 85670; 85730; 86038; 86780; 90732; 93005; 93306; 93880; 94640; 96372; 96374; 96376; 97162; 97165; 97530; 97535; 99285; A9270; G0009; G0378; J1644; 90471; 90686; G0008; J1815